=== PATIENT | male | born 1935 | race Caucasian/White ===

== ENCOUNTER 2017-05-25 23:58 | Emergency (ER) | payer MEDICARE, SELFPAY ==
[2017-05-26 00:05] VITALS: BP 189/76; PULSE 111; RESP 18; TEMP 38.2; O2SAT 98; BMI 22.4
--- NOTE | 2017-05-26 00:37 | HMH.EDURI ---
ED Disposition Clinical Impression: Bronchitis Disposition: Home, Self-Care Condition on Discharge: Good Instructions: DI for Cough -- Adult Additional Instructions: use meds and see pcp for follow up Prescriptions: levoFLOXacin [Levaquin 500mg tab] 500 mg PO DAILY #7 tab predniSONE [Prednisone 20mg Tab] 20 mg PO DAILY #10 tab Referrals: Tim Adams MD [Primary Care Provider] - - Critical Care Critical Care Time: No Attestation: On , the high probability of a clinically significant, sudden or life threatening deterioration of the following system(s) required my full and direct attention, intervention and personal management. The time I documented below is in addition to time spent performing reported procedures but includes the following listed in this critical care notation. Medical Decision Making - Medical Records Medical records reviewed: Yes: I reviewed the patient's medical records. Vital Signs: 05/26/17 00:05 Temperature 100.7 F H Temperature Source Oral Pulse Rate [Right Radial] 111 H Respiratory Rate 18 Blood Pressure [Right Arm] 189/76 Blood Pressure Mean [Right Arm] 113 02 Sat by Pulse Oximetry 98 Oxygen Delivery Method Room Air - Lab Data Lab results reviewed: Yes: I reviewed the patient's lab results. Lab Results 05/26/17 00:24: Influenza Type A Ag Negative, Influenza Type B Ag Negative - Vidal Inquiry Pt receiving controlled substance: No URI/Sore Throat HPI - General Chief Complaint: Nausea/Vomiting/Diarrhea Stated Complaint: cough,chest congestion Time Seen by Provider: 05/26/17 00:37 Mode of Arrival: Ambulatory Source of Information: Patient, Medical Record Limitations: No Limitations Description of Symptoms (Recalled from ER Triage Doc. by RN): PT REPORTS COUGH THAT STARTED TODAY WITH CLEAR SPUTUM. - History of Present Illness HPI Narrative: wm with inpatient nursing aide cough with no fever or rash and has not responded to meds Complaint: cough Onset (ago): day(s) Severity: moderate Relieving factors: cough suppressant Description of mucous: clear - Related Data Home Medications Medication Instructions Recorded Confirmed Benzonatate [Benzonatate 200mg Cap] 200 mg PO QID 05/26/17 05/26/17 Doxazosin Mesylate [Doxazosin 1mg 1 mg PO DAILY 05/26/17 05/26/17 Tab] Esomeprazole Magnesium [Nexium] 40 mg PO DAILY 05/26/17 05/26/17 Finasteride [Proscar 5mg Tablet] 5 mg PO DAILY 05/26/17 05/26/17 Fluticasone Propionate [Flonase 1 spray NS DAILY PRN 05/26/17 05/26/17 Allergy Relief NS] Lisinopril [Lisinopril 10mg Tab] 10 mg PO DAILY 05/26/17 05/26/17 raNITIdine HCl [Zantac 75] 75 mg PO DAILY PRN 05/26/17 05/26/17 Previous Rx's Medication Instructions Recorded levoFLOXacin [Levaquin 500mg 500 mg PO DAILY #7 tab 05/26/17 tab] predniSONE [Prednisone 20mg 20 mg PO DAILY #10 tab 05/26/17 Tab] Allergies Allergy/AdvReac Type Severity Reaction Status Date / Time SULFA (SULFONAMIDE) Allergy Unknown Uncoded 05/10/17 14:37 [facility] History I have reviewed the patient's past medical history: Yes Medical History: Denies:: Diabetes Mellitus Type 1, Diabetes Mellitus Type 2 - *Social History Smoking Status: Former smoker Alcohol Intake: never - Psychiatric History Expresses thoughts of harming self/others: None Suicide Plan Description: No Plan ROS Obtained: Yes All systems reviewed & no additional complaints except as noted - Constitutional Denies fever(s) - Eyes Denies change in vision - ENT Denies difficulty swallowing - Cardiovascular Denies chest pain - Respiratory Reports cough - Gastrointestinal Denies vomiting - Musculoskeletal Denies joint swelling - Neurologic Denies seizure-like activity Physical Exam - General General appearance: alert, in no apparent distress - Head Head exam: atraumatic - Eye Eye exam: Present: PERRL, EOMI - ENT ENT exam: Present: mucous membranes moist - Neck
== END 2017-05-26 01:08 | disposition home or self-care (01) ==
PROVIDERS: Emergency Provider Emergency Medicine; PCP Family Medicine
DX: J20.9 Acute bronchitis, unspecified (principal); Z87.891 Personal history of nicotine dependence
CPT/HCPCS: 87275; 87276; 99282

== ENCOUNTER → 2017-07-07 13:31 | Outpatient (CLI) | payer MEDICARE, SELFPAY ==
[2017-07-07 15:29] LABS: Prostate Specific Ag Screen 1.1 ng/mL (0.0-4.0)
== END ==
PROVIDERS: PCP Family Medicine; Visit Provider Urology
DX: Z12.5 Encounter for screening for malignant neoplasm of prostate (principal)
CPT/HCPCS: 36415; G0103

== ENCOUNTER → 2018-07-13 14:51 | Outpatient (CLI) | payer MEDICARE, SELFPAY ==
[2018-07-13 16:15] LABS: Prostate Specific Ag Screen 1.1 ng/mL (0.0-4.0)
== END ==
PROVIDERS: Visit Provider Urology
DX: Z12.5 Encounter for screening for malignant neoplasm of prostate (principal); C61 Malignant neoplasm of prostate
CPT/HCPCS: 36415; G0103

== ENCOUNTER → 2019-04-03 08:21 | Outpatient (CLI) | payer MEDICARE, SELFPAY ==
--- NOTE | 2019-04-03 08:26 | XR_ITS ---
PROCEDURE: XR SHOULDER RT MIN 2V CLINICAL INDICATION: right shoulder pain COMPARISON: XR SHOULDER RT MIN 2V from 02/14/2019 FINDINGS: The no fracture, dislocation, lytic change, or blastic change evident. No significant degenerative change IMPRESSION: Negative right shoulder Dictated by: Giovanny Wood MD 04/03/2019 16:17 Electronically signed by Giovanny Wood MD in [place] 04/03/2019 16:17
== END ==
PROVIDERS: PCP Family Medicine; Visit Provider Orthopaedic Surgery
DX: M25.511 Pain in right shoulder (principal)
CPT/HCPCS: 73030

== ENCOUNTER → 2019-04-11 09:09 | Outpatient (CLI) | payer MEDICARE, SELFPAY ==
--- NOTE | 2019-04-11 09:14 | MR_ITS ---
PROCEDURE: MR SHOULDER RT WO CON CLINICAL INDICATION: evaluate for rotator cuff tear Right shoulder pain with limited range of motion COMPARISON: XR SHOULDER RT MIN 2V from 04/03/2019 TECHNIQUE: Routine multiplanar multi echo sequences are performed without gadolinium enhancement. FINDINGS: There is complete tear of the supraspinatus tendon with retraction of the musculotendinous fibers. The infraspinatus, subscapularis, and teres minor tendons appear intact. There is a moderate size shoulder joint effusion. Fluid is present in the subacromial region and deep to the teres minor tendon posteriorly. No obvious labral tear. Bicipital tendon is in place. There is mild acromioclavicular arthropathy with mild subacromial stenosis. There is some minimal subarticular cystic changes at the humeral head at the greater tuberosity. IMPRESSION: Complete tear of the supraspinatus tendon with retraction of the musculotendinous fibers with moderate size shoulder joint effusion and subacromial bursitis along with hypertrophic change of the acromioclavicular joint with subacromial stenosis Dictated by: Giovanny Wood MD 04/12/2019 12:01 Electronically signed by Giovanny Wood MD in [place] 04/12/2019 12:01
== END ==
PROVIDERS: PCP Family Medicine; Visit Provider Orthopaedic Surgery
DX: G89.29 Other chronic pain (principal); M25.511 Pain in right shoulder
CPT/HCPCS: 73221

== ENCOUNTER → 2019-07-18 10:41 | Outpatient (CLI) | payer MEDICARE, SELFPAY ==
[2019-07-18 12:13] LABS: Prostate Specific Ag Screen 1.1 ng/ml (0.0-4.0)
== END ==
PROVIDERS: Visit Provider Urology
DX: Z12.5 Encounter for screening for malignant neoplasm of prostate (principal)
CPT/HCPCS: 36415; G0103

== ENCOUNTER → 2020-07-21 09:41 | Outpatient (CLI) | payer MEDICARE, SELFPAY ==
[2020-07-21 11:53] LABS: Prostate Specific Ag Screen 0.8 ng/ml (0.0-4.0)
== END ==
PROVIDERS: Visit Provider Urology
DX: N40.1 Benign prostatic hyperplasia with lower urinary tract symptoms (principal); Z12.5 Encounter for screening for malignant neoplasm of prostate
CPT/HCPCS: 36415; G0103

== ENCOUNTER 2021-03-02 21:13 | Emergency (ER) | payer MEDICARE, SELFPAY ==
[2021-03-02 21:15] VITALS: BP 200/85; PULSE 87; RESP 16; TEMP 36.5; O2SAT 96; BMI 30.2
[2021-03-02 21:20] VITALS: BP 206/75; PULSE 81
--- NOTE | 2021-03-02 21:37 | ECG_ITS ---
APPROVED REPORT Exam: Resting ECG HR:76 bpm ECG Measurements Heart Rate 76 AXES NC 210 P 54 QRSd 88 QRS -10 QT 350 T 34 QTc 393 Conclusion Sinus rhythm with 1st degree AV block Low voltage QRS Borderline ECG Electronically signed by : Tim Gregorio MD 03/04/2021 21:25:25
--- NOTE | 2021-03-02 21:42 | HMH.EDRECH ---
ED Disposition Clinical Impression: Hypertensive urgency Disposition: Home, Self-Care Condition on Discharge: Good Instructions: DI for High Blood Pressure Additional Instructions: call pcp for follow up tomorrow Referrals: Tim Adams MD [Primary Care Provider] - - Critical Care Critical Care Time: No Attestation: On 03/02/21, the high probability of a clinically significant, sudden or life threatening deterioration of the following system(s) required my full and direct attention, intervention and personal management. The time I documented below is in addition to time spent performing reported procedures but includes the following listed in this critical care notation. Medical Decision Making - Medical Records Medical records reviewed: Yes: I reviewed the patient's medical records. - Vidal Inquiry Pt receiving controlled substance: No Vital Signs: 03/02/21 21:15 03/02/21 21:20 Temperature 97.7 F Temperature Source Oral Pulse Rate 81 Pulse Rate [Right Radial] 87 Respiratory Rate 16 Blood Pressure 206/75 H Blood Pressure [Right Arm] 200/85 H Blood Pressure Mean [Right Arm] 123 Blood Pressure Source Manual Cuff/ Auscultation Blood Pressure Source [Right Arm] Automatic Cuff Blood Pressure Position Sitting Blood Pressure Position [Right Arm] Sitting 02 Sat by Pulse Oximetry 96 Oxygen Delivery Method Room Air - Lab Data Lab results reviewed: Yes: I reviewed the patient's lab results. Lab Results 03/02/21 22:04: WBC 6.0, RBC 3.65 L, Hgb 12.5 L, Hct 37.3 L, MCV 102.3 H, MCH 34.3 H, MCHC 33.5, RDW 13.5, Plt Count 201, MPV 8.4, Neut % (Auto) 50.3, Lymph % (Auto) 37.5, [place] % (Auto) 7.5, Eos % (Auto) 3.7, Baso % (Auto) 1.0, Neut # (Auto) 3.0, Lymph # (Auto) 2.2, [place] # (Auto) 0.5, Eos # (Auto) 0.2, Baso # (Auto) 0.1 03/02/21 22:04: Sodium 138, Potassium 3.9, Chloride 102, Carbon Dioxide 28, Anion Gap 11.9, BUN 13, Creatinine 1.00, Estimated Creat Clear 57, Estimated GFR 71, Est GFR ( Amer) 86, Glucose 128 H, Calcium 9.2, Troponin I < 0.01 Result diagrams: 03/02/21 22:04 03/02/21 22:04 Orders (Tests/Meds): ED MEDICATIONS Discontinued Medications Generic Name Dose Route Start Last Admin Trade Name Rober PRN Reason Stop Dose Admin Clonidine HCl 0.1 mg 03/02/21 21:48 03/02/21 21:49 Clonidine 0.1mg Tablet PO 03/02/21 21:49 0.1 mg ONCE ONE Administration ORDERS Category Date Time Status Chest XR 2 view (NOT portable) [XR chest 2V] Stat Exams 03/02/21 21:49 Taken Troponin I Q3H Lab 03/03/21 01:00 Ordered Troponin I Q3H Lab 03/03/21 04:00 Ordered - Radiology Data #1 Image(s): Chest Image Reviewed: Yes I have reviewed radiologist's interpretation Preliminary Findings: Normal/NAD - ECG Data Tracing #1 Normal Sinus Rhythm: Yes Ischemic changes: non-specific ST-T wave changes Medical Decision Narrative: please call pcp in am for close follow up Recheck HPI - General Chief Complaint: Recheck/Abnormal Lab/Rx Stated Complaint: High blood pressure pain in throat , Time Seen by Provider: 03/02/21 21:42 Mode of Arrival: Ambulatory Source of Information: Patient, Medical Record Limitations: No Limitations Description of Symptoms (Recalled from ER Triage Doc. by RN): Pt reports high BP reading at home anywhere from 170 to 200 systolic this evening. Pt had a tooth extraction last week and thinks the lidocaine used may be causing his BP to be elevated. Pt took a lisinopril 10mg an our before arrival. Pt states he feels normal and denies chest pain or soa. - History of Present Illness HPI narrative: elevated bp at home - no mak or focal neuro sx - and no fever/rash or trauma MD complaint: other (bp check ) Initial visit (ago): hour(s) Returns today for: other (bp elevated ) Symptoms since prior visit: no new symptoms Associated symptoms: none - Related Data Home Medications Medication Instructions Recorded Confirmed Do
--- NOTE | 2021-03-02 21:49 | XR_ITS ---
PROCEDURE INFORMATION: Exam: XR Chest Exam date and time: 03/02/2021 9:49 PM Age: 86 years old Clinical indication: Other: Elevated BP TECHNIQUE: Imaging protocol: XR of the chest. Views: 2 views. COMPARISON: MR SHOULDER RT WO CON 04/11/2019 9:58 AM FINDINGS: Lungs: Senescent changes within both lung lee. No consolidation. Pleural spaces: Unremarkable. No pleural effusion. No pneumothorax. Heart/Mediastinum: Unremarkable. No cardiomegaly. Bones/joints: Unremarkable. IMPRESSION: No acute findings.
[2021-03-02 22:00] VITALS: BP 185/70; PULSE 80; RESP 16; O2SAT 97
[2021-03-02 22:17] LABS: Basophils # 0.1 K/mm3 (0-0.2); Eosinophils # 0.2 K/mm3 (0.0-0.4); Eosinophils % 3.7 % (0.1-12.0); Hematocrit 37.3 % (42.0-52.0); Hemoglobin 12.5 g/dL (14.1-18.0); Lymphocytes # 2.2 K/mm3 (0.7-4.5); Lymphocytes % 37.5 % (10-50); Mean Corpuscular HGB Conc 33.5 g/dL (31.8-35.4); Mean Corpuscular Hemoglobin 34.3 pg (27.0-31.2); Mean Corpuscular Volume 102.3 fl (80-94); Mean Platelet Volume 8.4 fl (7.4-10.4); Monocytes # 0.5 K/mm3 (0.1-1.0); Monocytes % 7.5 % (1.7-9.3); Neutrophils % 50.3 % (37.0-80.0); Platelet Count 201 K/mm3 (142-424); Red Blood Count 3.65 M/mm3 (4.60-6.20); Red Cell Distribution Width 13.5 % (11.5-17.5)
[2021-03-02 22:21] LABS: Anion Gap 11.9 mEq/L (5-15); Blood Urea Nitrogen 13 mg/dl (9-20); Calcium 9.2 mg/dl (8.4-10.2); Carbon Dioxide 28 mmol/L (22.0-30.0); Chloride 102 mmol/L (98-107); Creatinine Clearance Estimated 57 mL/min (50-200); Estimated Glomerular Filt Rate 71 ml/min (>60); GFR (African American) 86 ML/MIN (>60); Glucose 128 mg/dl (74-100); Potassium 3.9 mmoL/L (3.5-5.1); Sodium 138 mmol/L (136-145)
[2021-03-02 22:30] VITALS: BP 198/71; PULSE 70; O2SAT 97
[2021-03-02 22:35] LABS: Troponin I < 0.01 ng/ml (0.00-0.034)
[2021-03-02 23:10] VITALS: BP 198/78; PULSE 77
[2021-03-02 23:26] VITALS: BP 192/73; PULSE 78; RESP 16; TEMP 36.6; O2SAT 97
== END 2021-03-02 23:42 | disposition home or self-care (01) ==
PROVIDERS: Emergency Provider Emergency Medicine; PCP Family Medicine
DX: I16.0 Hypertensive urgency (principal); Z88.2 Allergy status to sulfonamides
CPT/HCPCS: 71046; 80048; 84484; 85025; 93005; 99283

== ENCOUNTER → 2021-07-28 08:16 | Outpatient (CLI) | payer MEDICARE, SELFPAY ==
[2021-07-28 08:36] LABS: Microscopic, Urine URINE MICROSCOPIC (MICROSCOPIC)
--- NOTE | 2021-07-28 09:00 | ECG_ITS ---
APPROVED REPORT Exam: Resting ECG HR:69 bpm ECG Measurements Heart Rate 69 AXES UT 201 P 79 QRSd 100 QRS -56 QT 356 T 63 QTc 374 Conclusion SINUS RHYTHM INDETERMINATE AXIS ABNORMAL ECG UNCONFIRMED REPORT Electronically signed by : Tim Gregorio MD 07/29/2021 17:51:12
[2021-07-28 09:03] LABS: Basophils # 0.1 K/mm3 (0-0.2); Basophils % 1.1 % (0.1-2.0); Eosinophils # 0.2 K/mm3 (0.0-0.4); Eosinophils % 3.3 % (0.1-12.0); Hematocrit 41.2 % (42.0-52.0); Hemoglobin 13.3 g/dL (14.1-18.0); Lymphocytes # 2.2 K/mm3 (0.7-4.5); Lymphocytes % 43.3 % (10-50); Mean Corpuscular HGB Conc 32.2 g/dL (31.8-35.4); Mean Corpuscular Hemoglobin 34.4 pg (27.0-31.2); Mean Corpuscular Volume 106.7 fl (80-94); Mean Platelet Volume 8.7 fl (7.4-10.4); Monocytes # 0.4 K/mm3 (0.1-1.0); Monocytes % 7.1 % (1.7-9.3); Neutrophils # 2.3 K/mm3 (1.8-7.8); Neutrophils % 45.2 % (37.0-80.0); Platelet Count 194 K/mm3 (142-424); Red Blood Count 3.86 M/mm3 (4.60-6.20); Red Cell Distribution Width 13.5 % (11.5-17.5); White Blood Count 5.2 K/mm3 (4.8-10.8)
[2021-07-28 09:21] LABS: Anion Gap 10.9 mEq/L (5-15); Blood Urea Nitrogen 13 mg/dl (9-20); Calcium 9.4 mg/dl (8.4-10.2); Carbon Dioxide 28 mmol/L (22.0-30.0); Chloride 103 mmol/L (98-107); Estimated Glomerular Filt Rate 58 ml/min (>60); GFR (African American) 70 ML/MIN (>60); Glucose 104 mg/dl (74-100); Potassium 4.9 mmoL/L (3.5-5.1); Sodium 137 mmol/L (136-145)
[2021-07-28 09:50] LABS: Prostate Specific Ag Screen 0.9 ng/ml (0.0-4.0)
[2021-07-28 10:51] LABS: Appearance,Urine CLEAR (Clear); Bilirubin,Urine Negative (Negative); Blood, Urine Negative (Negative); Color,Urine YELLOW (Yellow); Glucose,Urine (UA) Negative (Negative); Ketones,Urine Negative (Negative); Leukocyte Esterase,Urine Negative (Negative); Nitrate,Urine Negative (Negative); Protein,Urine Negative (Negative); Urobilinogen,Urine 0.2 EU/dl (0.2)
[2021-07-28 11:26] LABS: Squamous Epithelial Cell,Urine Occasional #/hpf (0-5)
== END ==
PROVIDERS: Surgery; PCP Family Medicine; Referring Provider Urology; Visit Provider Surgery
DX: K40.90 Unilateral inguinal hernia, without obstruction or gangrene, not specified as recurrent (principal); J40 Bronchitis, not specified as acute or chronic; Z01.812 Encounter for preprocedural laboratory examination; Z11.52 Encounter for screening for COVID-19; Z12.5 Encounter for screening for malignant neoplasm of prostate
CPT/HCPCS: 36415; 80048; 81001; 85025; 93005; G0103; C9803; U0003; U0005

== ENCOUNTER 2021-07-30 08:13 | Day surgery (SDC) | payer MEDICARE, SELFPAY ==
[2021-07-28 10:05] VITALS: BMI 21.2
[2021-07-30] VITALS (10 sets, daily range): BP systolic 147–195; BP diastolic 51–83; PULSE 62–94; RESP 12–18; TEMP 36.4–43; O2SAT 95–99
--- NOTE | 2021-07-30 09:32 | HMH.ANESCL ---
[facility] Anesthesia Checklist - Patient Identification Patient Identification: Arm Band - Structural Data Admitted From: Home Planned Operative Procedure/s: Right Open Inguinal Hernia Repair Consent for Planned Operative Procedure(s) Verified: Yes Verified Documents: Surgical Consent, History and Physical - NPO Status Verified Time NPO: 00:00 - Additional verifications Anesthesia Reactions: No Hx Blood Transfusions: No Blood Transfusion Reaction: No - Airway Assessment C-Spine Mobility Assessed: Yes (mp2) TMJ Mobility Assessed: Yes Dentition: Good Dentition - Neurological Assessment Level of Consciousness: Awake, Alert - Anesthesia Plan Anesthesia Risk discussed: Yes Anesthesia Plan: Verified ASA Class: III Anesthesia Type: General [facility] History I have reviewed the patient's past medical history: Yes Medical History: Reports:: Cancer (skin), Gastroesophageal Reflux Disease(GERD), Hypertension Denies:: Diabetes Mellitus Type 1, Diabetes Mellitus Type 2, Internal Pacemaker, MRSA, Seizures *Have you ever received a pneumonia vaccine?: Yes *Have you received a flu vaccine this season?: Yes Other Medical History: Denies: Blood Transfusion Reaction Anesthesia experience/problems:: nac Laterality Cases: Bilateral: Cataract Other Surgeries: Yes: Colonoscopy, Other. No: Pacemaker Amputation: No Fractures: No - *Social History Last grade of school completed: Advanced degree Smoking Status: Never smoker Alcohol Intake: never Substance Use Type: denies use *Occupational Status:: retired Housing: house Household Members: none *Travel in the last 8 weeks: None Family Hx:: No significant family history
--- NOTE | 2021-07-30 11:55 | HMH.OPNOTE ---
Date of procedure: 07/30/21 Pre-op Diagnosis:: Right inguinal hernia Post-op Diagnosis:: Same Procedure performed:: Open right inguinal hernia repair Surgeon:: Dillan Middleton MD Payroll Professional(s):: Chrissie POULTRY CLEANER:: French Duarte Anesthesia: LMA Estimated blood loss (mL): 15 Operative findings:: Complex indirect hernia with thin hernia sac Significant inflammatory changes throughout inguinal canal Operative note:: After informed consent was obtained the patient was taken to the operating room and placed in the supine position. General anesthesia with laryngeal mask airway was achieved. His right lower abdomen and groin/scrotum were prepped and draped in a sterile fashion. After infiltration with local anesthetic an oblique right groin incision was made. Electrocautery was utilized to transect through the deeper subcutaneous tissue and through Hayde's fascia to the level of the external aponeurosis. The external aponeurosis was opened to the level of the external ring sharply with Metzenbaum scissors. The contents of the canal were carefully elevated. Significant inflammatory response throughout the inguinal canal region confirmed. A very thin-walled hernia sac was carefully dissected free from surrounding tissue. A portion of the sac was transected and passed off for pathologic evaluation. The opening was reapproximated with nondyed Vicryl suture. An extra-large PerFix plug was then secured in position through the internal ring with 2-0 Ethibond. The PerFix overlay mesh was then secured to the shelving edge inferiorly and fascial margin superiorly with 2-0 Ethibond. The external aponeurosis was reapproximated with running Vicryl suture. Hayde's fascia was closed in the same manner. Skin was then reapproximated with 3-0 Stratafix. Dressings were applied and the patient was transferred to recovery in stable condition. Condition: stable Disposition: PACU Specimens:: Hernia sac Complications:: No immediate
--- NOTE | 2021-07-30 11:59 | HMH.ANESI ---
[facility] Anesthesia Record Part I Intake, IV Amount: 1,400 Estimated blood loss (mL): 0 Urine output (mL): 700 Blood Pressure: 155/62 SaO2: 96 Pulse Rate: 77 Respiratory Rate: 12 Temperature: 97.5 F Patient is:: Awake, Stable Stable to PACU at:: 11:55
--- NOTE | 2021-07-30 12:36 | SUR.PHASEI ---
1222 detailed report given to Geovany Moses RN. 1225 Pt transported via stretcher to post op. Pt in stable condition and left in care of Geovany Moses RN at bedside.
--- NOTE | 2021-07-30 13:02 | SUR.PHASEII ---
BS care given by Anthony RN- educated by Orlando COLON
[2021-07-30 14:42] LABS: Microscopic,Cath URINE MICROSCOPIC (MICROSCOPIC)
[2021-07-30 14:49] LABS: Appearance,Urine/Cath CLEAR (Clear); Bilirubin,Cath Negative (Negative); Blood, Urine/Cath Negative (Negative); Color,Urine/Cath YELLOW (Yellow); Glucose,Urine/Cath (UA) Negative (Negative); Ketones,Urine/Cath Negative (Negative); Leukocyte Esterase,Cath Negative (Negative); Nitrate,Cath Negative (Negative); Protein,Urine/Cath Negative (Negative); Urobilinogen,Cath 0.2 EU/dl (0.2)
--- NOTE | 2021-07-31 09:51 | HMH.ANESII ---
[facility] [place] Anesthesia Record Part II Discharge Time: 12:25 Destination: Surgical Day Care (OP Surgery) PACU nurse assessment reviewed?: Yes Patient Condition:: Good Anesthesia Complications:: None Swallowing reflex intact?: Yes Cyanosis?: No Blood Pressure: 151/51 Pulse Rate: 64 Temperature: 97.6 F Mental Status: Alert & Oriented Pain level:: 0 Nausea and/or vomitting:: None Intake, IV Amount: 0
[2021-07-31 09:52] VITALS: BP 151/51; PULSE 64; TEMP 36.4
== END 2021-07-30 13:02 | disposition home or self-care (01) ==
LOC: OR 08:15
PROVIDERS: PCP Family Medicine; Visit Provider Surgery
DX: K40.90 Unilateral inguinal hernia, without obstruction or gangrene, not specified as recurrent (principal); R31.0 Gross hematuria; K21.9 Gastro-esophageal reflux disease without esophagitis; I10 Essential (primary) hypertension; Z85.828 Personal history of other malignant neoplasm of skin; Z88.2 Allergy status to sulfonamides; Z79.899 Other long term (current) drug therapy
CPT/HCPCS: 49505; 81001; 85007; 85025; 96374; 99283; J2405

== ENCOUNTER 2021-07-30 20:06 | Emergency (ER) | payer MEDICARE, SELFPAY ==
[2021-07-30 20:07] VITALS: BP 174/79; PULSE 113; RESP 19; TEMP 37; O2SAT 98; BMI 21.2
[2021-07-30 20:44] LABS: Basophils % 0.3 % (0.1-2.0); Eosinophils % 0.1 % (0.1-12.0); Hematocrit 39.8 % (42.0-52.0); Hemoglobin 12.8 g/dL (14.1-18.0); Lymphocytes # 0.7 K/mm3 (0.7-4.5); Lymphocytes % 8.2 % (10-50); Mean Corpuscular HGB Conc 32.2 g/dL (31.8-35.4); Mean Corpuscular Hemoglobin 34.2 pg (27.0-31.2); Mean Platelet Volume 9.1 fl (7.4-10.4); Monocytes # 0.3 K/mm3 (0.1-1.0); Neutrophils # 7.4 K/mm3 (1.8-7.8); Neutrophils % 87.4 % (37.0-80.0); Platelet Count 193 K/mm3 (142-424); Red Blood Count 3.75 M/mm3 (4.60-6.20); Red Cell Distribution Width 13.5 % (11.5-17.5); White Blood Count 8.5 K/mm3 (4.8-10.8)
[2021-07-30 20:51] LABS: MANUAL DIFFERENTIAL MANUAL DIFFERENTIAL (MANUAL DIFF)
--- NOTE | 2021-07-30 20:57 | HMH.EDGENADL ---
ED Disposition Clinical Impression: Hematuria Qualifiers: Hematuria type: gross Qualified Code(s): R31.0 - Gross hematuria BPH (benign prostatic hyperplasia) Qualifiers: Lower urinary tract symptom presence: unspecified whether lower urinary tract symptoms present Qualified Code(s): N40.0 - Benign prostatic hyperplasia without lower urinary tract symptoms Disposition: Home, Self-Care Condition on Discharge: Good Instructions: DI for Urinary Tract Infection (UTI), DI for Urinary Tract Infection in Children Additional Instructions: Keep Maier catheter in place until following up with Dr. Valdes this upcoming Tuesday. Return to ED with new, worsening, concerning symptoms which may include but not limited to inability to urinate, worsening hematuria or blood clots, fevers, worsening pain. Take Pyridium as directed, continue to have medications as previously directed. Prescriptions: Phenazopyridine HCl [Pyridium 200mg Tablet] 200 mg PO TID 3 Days #9 tab Transmission Status: Pending to [facility] Referrals: Tim Adams MD [Primary Care Provider] - - Critical Care Critical Care Time: No Attestation: On 07/30/21, the high probability of a clinically significant, sudden or life threatening deterioration of the following system(s) required my full and direct attention, intervention and personal management. The time I documented below is in addition to time spent performing reported procedures but includes the following listed in this critical care notation. Medical Decision Making - Medical Records Medical records reviewed: Yes: I reviewed the patient's medical records. - Vidal Inquiry Pt receiving controlled substance: No Vital Signs: 07/30/21 20:07 Temperature 98.6 F Temperature Source Oral Pulse Rate [Right] 113 H Respiratory Rate 19 Blood Pressure [Right Arm] 174/79 H Blood Pressure Mean [Right Arm] 110 Blood Pressure Source [Right Arm] Automatic Cuff 02 Sat by Pulse Oximetry 98 Oxygen Delivery Method Room Air - Lab Data Lab Results 07/30/21 20:24: WBC 8.5 D, RBC 3.75 L, Hgb 12.8 L, Hct 39.8 L, MCV 106.0 H, MCH 34.2 H, MCHC 32.2, RDW 13.5, Plt Count 193, MPV 9.1, Neut % (Auto) 87.4 H, Lymph % (Auto) 8.2 L, [place] % (Auto) 4.0, Eos % (Auto) 0.1, Baso % (Auto) 0.3, Neut # (Auto) 7.4, Lymph # (Auto) 0.7, [place] # (Auto) 0.3, Eos # (Auto) 0.0, Baso # (Auto) 0.0 Result diagrams: 07/30/21 20:24 Orders (Tests/Meds): ED MEDICATIONS Discontinued Medications Generic Name Dose Route Start Last Admin Trade Name Rober PRN Reason Stop Dose Admin Phenazopyridine HCl 200 mg 07/30/21 20:36 07/30/21 21:09 Phenazopyridine 200mg Tablet PO 07/30/21 20:37 200 mg ONCE ONE Administration ORDERS Category Date Time Status CBC [Complete Blood Count Auto Diff] Stat Lab 07/30/21 20:24 Results Medical Decision Narrative: 6-year-old male with history of BPH, recent inguinal hernia repair who is presenting to the ED with hematuria with a Maier catheter in place. Differential diagnoses include traumatic Maier catheter placement, BPH, hemorrhagic cystitis, Maier catheter dislodgment, bladder cancer. Given this work-up will include physical exam, CBC, bladder scan. Patient's vital signs are currently stable. He was given Pyridium for discomfort. CBC reassuring with hemoglobin of 12.8, 13.32 days ago. No history of blood thinner use. Suspect this is most likely secondary to traumatic Maier catheter placement however patient does have pre-existing BPH which puts him at risk for hematuria. I do not feel that further labs or imaging studies are currently indicated. If he remains stable he will be safer discharge home. Bedside ultrasound shows Maier bulb catheter within the bladder, no other abnormalities. Patient main stable, urine color has cleared, less blood-tinged. No obvious clots. This point I feel he is okay for discharge, write a 3 days of oral Pyridium for dysuria symptoms. He will
--- NOTE | 2021-07-30 21:12 | PC.NURSE ---
pt refuses to wear BP cuff at sat monitor at this time.
--- NOTE | 2021-07-30 21:22 | PC.NURSE ---
patient given ice pack
[2021-07-30 21:40] VITALS: BP 142/78; PULSE 84; RESP 18; TEMP 36.9; O2SAT 98
[2021-07-30 21:43] LABS: Lymphocytes % 10 % (10-50); Monocytes % 2 % (2-9); Neutrophils % 88 % (42-76); Total Cells Counted 100
[2021-07-30 21:44] LABS: Macrocytosis 1+; Platelet Estimate 1
== END 2021-07-30 22:24 | disposition home or self-care (01) ==
PROVIDERS: Emergency Provider Emergency Medicine; PCP Family Medicine
DX: R31.0 Gross hematuria (principal); N39.0 Urinary tract infection, site not specified; N40.0 Benign prostatic hyperplasia without lower urinary tract symptoms; K21.9 Gastro-esophageal reflux disease without esophagitis; I10 Essential (primary) hypertension; C44.90 Unspecified malignant neoplasm of skin, unspecified; Z79.51 Long term (current) use of inhaled steroids; Z79.899 Other long term (current) drug therapy; Z88.2 Allergy status to sulfonamides
CPT/HCPCS: 85007; 85025

== ENCOUNTER 2023-12-03 13:07 | Inpatient (IN) | payer MEDICARE, SELFPAY ==
[2023-12-03] VITALS (7 sets, daily range): BP systolic 134–193; BP diastolic 52–78; PULSE 62–108; RESP 16–18; TEMP 36.6–36.9; O2SAT 94–98; BMI 21.2
--- NOTE | 2023-12-03 13:36 | EXP.UTC ---
Discharge Plan Disposition Patient Disposition: Still a Patient Prescriptions Prescriptions: No Action doxazosin 1 MG tablet 1 mg PO DAILY esomeprazole magnesium 40 MG capsule,delayed release(DR/EC) 40 mg PO DAILY lisinopril 10 MG tablet 10 mg PO DAILY finasteride 5 MG tablet 5 mg PO DAILY famotidine 20 MG tablet 20 mg PO HS Referrals Follow up/Referrals: Singh Liz MD [Primary Care Provider] - See instructions Discharge ED Provider: Del ([facility] [place] General Stated complaint: abd pain Mode of Arrival: Ambulatory Source of Information: Patient Limitations: No Limitations Time Seen by Provider: 12/03/23 13:36 Description of Symptoms (Recalled from Triage Doc. by RN): PATIENT C/O SEVERE MIDDLE ABDOMINAL PAIN THAT RADIATES UPWARD AND STARTED THIS MORNING. PATIENT DENIES VOMITING, NAUSEA, OR DIARRHEA HEENT Symptoms (Recalled from RN notes): No Resp Symptoms (Recalled from RN notes): No Skin Symptoms (Recalled from RN notes): No MS Symptoms (Recalled from RN notes): No Functional Status (Recalled from RN notes): WNL History of Present Illness Provider Complaint: 88 yr old male presents for abd pain. pt states the pain is severe. pt states he had a episode in the past and was told it was blockage and he had surgery but nothing was found. pt states the last time he received morphine and his stomach was pumped and that helped. Related Data Home Medications Medication Instructions Recorded Confirmed doxazosin 1 mg tablet 1 mg PO DAILY PROSTATE 05/26/17 12/03/23 esomeprazole magnesium 40 mg 40 mg PO DAILY GERD 05/26/17 12/03/23 capsule,delayed release finasteride 5 mg tablet 5 mg PO DAILY PROSTATE 05/26/17 12/03/23 lisinopril 10 mg tablet 10 mg PO DAILY Hypertension 05/26/17 12/03/23 famotidine 20 mg tablet 20 mg PO HS GERD 07/28/21 12/03/23 Allergies Allergy/AdvReac Type Severity Reaction Status Date / Time Sulfa (Sulfonamide Allergy Verified 09/02/21 12:45 Antibiotics) Worker's Comp Is this a Worker's Comp case?: No [facility] Disclaimer: The information contained in this section may have been updated after the patient was seen, as this information can be updated by other users. Medical History , BUSINESS MANAGEMENT SPECIALIST) Cancer Prostate disorder Hypertension Surgical History , BUSINESS MANAGEMENT SPECIALIST) History of tonsillectomy Social History , BUSINESS MANAGEMENT SPECIALIST) Smoking Status: Never smoker alcohol intake: never substance use type: denies use current occupational status: retired Travel in the last 8 weeks: None household members: none housing: house current occupational exposures/hazards: No caffeine: Yes ROS Obtained: Yes All systems reviewed & no additional complaints except as documented Constitutional Constitutional: Reports system reviewed and no additional complaints, except as documented Eyes Eyes: Reports system reviewed and no additional complaints, except as documented ENT Ears, Nose, Mouth, and Throat: Reports system reviewed and no additional complaints, except as documented Cardiovascular Cardiovascular: Reports system reviewed and no additional complaints, except as documented Respiratory Respiratory: Reports system reviewed and no additional complaints, except as documented Gastrointestinal Gastrointestingal: Reports system reviewed and no additional complaints, except as documented, as per HPI and abdominal pain Musculoskeletal Musculoskeletal: Reports system reviewed and no additional complaints, except as documented Integumentary/Breasts Skin/Breast: Reports system reviewed and no additional complaints, except as documented Neurologic Neurologic: Reports system reviewed and no additional complaints, except as documented Endocrine Endocrine: Reports system reviewed and no additional complaints, except as documented Hematologic/Lymphatic Henatologic/Lymphatic: Reports system reviewed and no additional complaints, except as documented Allergic/Immunologic Allergic/Immunologic: Reports system reviewed and no additional complaints, except as documented Physical Exam General General appearance: alert and in no apparent distress Eye Eye exam: Present normal appearance ENT ENT exam: Present normal exam, normal oropharynx and mucous membranes moist Respiratory Respiratory exam: Present normal lung sounds bilaterally Cardiovascular Cardiovascular exam: Present regular rate and normal rhythm Abdominal Exam Abdominal exam: Present soft, tenderness, guarding and diminished bowel sounds Abdominal tenderness: Present severe (umbilicus) Neurological Exam Neurological exam: Present alert and oriented X3 Skin Skin exam: Present warm and intact Medical Decision Making Medical Records Medical records reviewed: Yes I reviewed the patient's medical records. Vidal Inquiry Pt receiving controlled substance: No Vidal was queried for this patient: No Vital Signs: 12/03/23 13:20 Temperature 98.5 F Temperature Source Oral Pulse Rate [Right Brachial] 74 Respiratory Rate 18 Blood Pressure [Right Arm] 186/71 H Blood Pressure Mean [Right Arm] 109 Blood Pressure Source [Right Arm] Automatic Cuff Blood Pressure Position [Right Arm] Sitting 02 Sat by Pulse Oximetry 98 Oxygen Delivery Method Room Air Physician Consults Physician Consulted: dr ortega Time: 13:46 Reason -: Pt condition Comment/Response: sent to ed for eval
--- NOTE | 2023-12-03 14:04 | PC.NURSE ---
PATIENT SENT TO ER PER Mario MARI APRN FOR FURTHER EVALUATION. REPORT GIVEN TO DR. KWONG AND Leonard JONES RN BY Mario MARI APRN. PATIENT REFUSED WHEELCHAIR TRANSPORT. PATIENT AMBULATED TO ER WITH [facility] STAFF
[2023-12-03] MEDS: LACTATED RINGERS 1000ML 1,000 ML 999 ML IV (15:00)
--- NOTE | 2023-12-03 15:09 | CT_ITS ---
PROCEDURE INFORMATION: Exam: CT Abdomen And Pelvis Without Contrast Exam date and time: 12/03/2023 4:20 PM Age: 88 years old Clinical indication: Abdominal pain; Additional info: Generalized pain, nausea TECHNIQUE: Imaging protocol: Computed tomography of the abdomen and pelvis without contrast. Radiation optimization: All CT scans at this facility use at least one of these dose optimization techniques: automated exposure control; mA and/or kV adjustment per patient size (includes targeted exams where dose is matched to clinical indication); or iterative reconstruction. COMPARISON: CR XR CHEST 2V 03/02/2021 10:10 PM FINDINGS: Heart: There is calcification of the aortic valve annulus. There is calcification of the mitral valve annulus. Coronary arteries: Coronary artery calcifications may indicate coronary artery disease. Liver: Normal. No mass. Gallbladder and biliary ducts: Multiple gallstones in the gallbladder. Pancreas: Normal. No ductal dilation. Spleen: Normal. No splenomegaly. Adrenal glands: Normal. No mass. Kidneys and ureters: Nonobstructing renal calculi bilaterally. No ureteral calculus. Stomach and bowel: Multiple loops of mildly dilated small bowel with air-fluid levels. The distal small bowel is decompressed. This may represent obstruction or ileus. Appendix: No evidence of appendicitis. Intraperitoneal space: Unremarkable. No free air. No significant fluid collection. Vasculature: Unremarkable. No abdominal aortic aneurysm. Lymph nodes: Unremarkable. No enlarged lymph nodes. Urinary bladder: Bladder is distended 12 cm Reproductive: Unremarkable as visualized. Bones/joints: Unremarkable. No acute fracture. Soft tissues: Unremarkable. IMPRESSION: 1. Multiple loops of mildly dilated small bowel with air-fluid levels. The distal small bowel is decompressed. This may represent obstruction or ileus. 2. Multiple gallstones in the gallbladder. 3. Nonobstructing renal calculi bilaterally. No ureteral calculus.
--- NOTE | 2023-12-03 15:16 | PC.NURSE ---
pt ambulatory to restroom without complication
[2023-12-03] MEDS: ACETAMINOPHEN 1,000MG/100ML VIAL 1000 MG IV (15:17)
[2023-12-03] MEDS: KETOROLAC 30MG/ML VIAL 15 MG IV (15:17)
[2023-12-03] MEDS: ONDANSETRON 4MG/2ML VIAL 4 MG IV (15:17)
[2023-12-03 15:20] LABS: Basophils % 0.4 % (0.1-2.0); Eosinophils % 0.4 % (0.1-12.0); Hematocrit 43.5 % (42.0-52.0); Hemoglobin 13.8 g/dL (14.1-18.0); Lymphocytes # 1.4 K/mm3 (0.7-4.5); Mean Corpuscular HGB Conc 31.8 g/dL (31.8-35.4); Mean Corpuscular Hemoglobin 34.5 pg (27.0-31.2); Mean Corpuscular Volume 108.7 fl (80-94); Monocytes # 0.3 K/mm3 (0.1-1.0); Monocytes % 4.8 % (1.7-9.3); Neutrophils # 5.2 K/mm3 (1.8-7.8); Neutrophils % 74.3 % (37.0-80.0); Platelet Count 143 K/mm3 (142-424); Red Cell Distribution Width 13.4 % (11.5-17.5)
[2023-12-03 15:22] LABS: Chloride 107 mmol/L (98-107); Potassium 5.4 mmoL/L (3.5-5.1); Sodium 136 mmol/L (136-145)
[2023-12-03 15:24] LABS: Microscopic, Urine URINE MICROSCOPIC (MICROSCOPIC)
[2023-12-03 15:24] LABS: Alanine Aminotransferase 20 U/L (12-78); Aspartate Amino Transferase 47 U/L (17-59); Blood Urea Nitrogen 21 mg/dl (9-20); Creatinine Clearance Estimated 39 mL/min (50-200); Estimated Glomerular Filt Rate 48 ml/min (>60); GFR (African American) 58 ML/MIN (>60)
[2023-12-03 15:25] LABS: Albumin Level 4.7 g/dl (3.5-5.0); Albumin/Globulin Ratio 1.3 (1.1-1.8); Alkaline Phosphatase 66 U/L (38-126); Anion Gap 14.4 mEq/L (5-15); Calcium 9.6 mg/dl (8.4-10.2); Carbon Dioxide 20 mmol/L (22.0-30.0); Globulin 3.5 g/dL (1.3-3.2); Glucose 116 mg/dl (74-100); Lipase 49 U/L (23-300); Total Protein,Serum 8.2 g/dl (6.3-8.2)
[2023-12-03 15:29] LABS: Appearance,Urine CLEAR (Clear); Bilirubin,Urine Negative (Negative); Blood, Urine Negative (Negative); Color,Urine YELLOW (Yellow); Glucose,Urine (UA) Negative (Negative); Ketones,Urine Negative (Negative); Leukocyte Esterase,Urine Negative (Negative); Nitrate,Urine Negative (Negative); Protein,Urine TRACE (Negative); Urobilinogen,Urine 0.2 EU/dl (0.2)
--- NOTE | 2023-12-03 15:34 | HMH.EDGENADL ---
Discharge Plan Disposition Patient Disposition: Admitted Clinical Impressions Clinical Impression: SBO (small bowel obstruction), JULIAN (acute kidney injury), Hypertension Discharge ED Provider: Criss Jesus General Adult HPI General Chief complaint: Abdominal Pain Stated complaint: abd pain Time Seen by Provider: 12/03/23 13:36 Mode of Arrival: Ambulatory Limitations: No Limitations Description of Symptoms (Recalled from ER Triage Doc. by RN): PT REPORTS ABDOMINAL PAIN THAT STARTED ABOUT 0700 THIS AM, REPORTS NORMAL BM THIS MORNING, HX OF SBO. PT DENIES N/V/D History of Present Illness HPI narrative: This patient is an 88-year-old male with a history of hypertension, hypertensive urgency, BPH, GERD, and hematuria presenting to the emergency department with concern for generalized abdominal pain. He reports that it is mostly in his lower abdomen. It started around 7:00 this morning. He has normal bowel movement this morning but this did not help the pain. He reports he has a history of bowel blockage and thinks this feels similar. He notes nausea but no vomiting. He states right now he feels like he may be spiking a fever, but denies fevers at home. No difficulty with urinating, hematuria, hematochezia, melena, diarrhea, or other concerns. Related Data Home Medications Medication Instructions Recorded Confirmed doxazosin 1 mg tablet 1 mg PO DAILY PROSTATE 05/26/17 12/03/23 esomeprazole magnesium 40 mg 40 mg PO DAILY GERD 05/26/17 12/03/23 capsule,delayed release finasteride 5 mg tablet 5 mg PO DAILY PROSTATE 05/26/17 12/03/23 lisinopril 10 mg tablet 10 mg PO BID Hypertension 05/26/17 12/03/23 famotidine 20 mg tablet 20 mg PO HS GERD 07/28/21 12/03/23 Allergies Allergy/AdvReac Type Severity Reaction Status Date / Time Sulfa (Sulfonamide Allergy Verified 09/02/21 12:45 Antibiotics) [facility] Disclaimer: The information contained in this section may have been updated after the patient was seen, as this information can be updated by other users. Medical History BPH (benign prostatic hyperplasia) Cancer Prostate disorder Hypertension Surgical History Hx of colonoscopy S/P right inguinal herniorrhaphy History of tonsillectomy Family History (Updated 12/03/23 @ 18:49 by Nora Addison RN) Other Heart disease Social History (Updated 12/03/23 @ 18:50 by Nora Addison, RN) Smoking Status: Never smoker alcohol intake: never substance use type: denies use current occupational status: retired Travel in the last 8 weeks: None household members: none housing: house current occupational exposures/hazards: No caffeine: Yes ROS Obtained: Yes All systems reviewed & no additional complaints except as documented Physical Exam General General appearance: alert and in no apparent distress Head Head exam: atraumatic and normocephalic Eye Eye exam: Present normal appearance, PERRL and EOMI ENT ENT exam: Present normal exam, normal oropharynx, mucous membranes moist and normal external ear exam Neck Neck exam: Present normal inspection, full ROM and trachea midline; Absent tenderness Chest Chest inspection: Present normal inspection and symmetric chest wall rise; Absent tenderness Respiratory Respiratory exam: Present normal lung sounds bilaterally; Absent respiratory distress, wheezes, stridor or accessory muscle use Cardiovascular Cardiovascular exam: Present regular rate and normal rhythm Abdominal Exam Abdominal exam: Present soft and tenderness (lower abdomen); Absent distention, guarding, rebound or rigidity Extremities Exam Extremities exam: Present normal inspection, full ROM and normal capillary refill; Absent tenderness or edema Back Exam Back exam: Present normal inspection and full ROM; Absent tenderness Neurological Exam Neurological exam: Present alert, oriented X3, CN II-XII intact and normal gait; Absent motor sensory deficit Psychiatric Psychiatric exam: Present normal affect and normal mood Skin Skin exam: Present warm and dry Medical Decision Making Medical Records Medical records reviewed: Yes I reviewed the patient's medical records. Vidal Inquiry Pt receiving controlled substance: No Vital Signs: 12/03/23 13:20 12/03/23 14:23 12/03/23 15:22 Temperature 98.5 F 98.5 F Temperature Source Oral Oral Pulse Rate 69 Pulse Rate [Right Brachial] 74 62 Respiratory Rate 18 18 16 Blood Pressure 167/52 H Blood Pressure [Right Arm] 186/71 H 134/53 L Blood Pressure Mean Blood Pressure Mean [Right Arm] 109 80 Blood Pressure Source Automatic Cuff Blood Pressure Source [Right Arm] Automatic Cuff Automatic Cuff Blood Pressure Position Sitting Blood Pressure Position [Right Arm] Sitting Sitting 02 Sat by Pulse Oximetry 98 98 97 Oxygen Delivery Method Room Air Room Air Room Air Oxygen Flow Rate (LPM) 12/03/23 17:36 12/03/23 18:15 12/03/23 18:15 Temperature 98.0 F 98.2 F Temperature Source Oral Pulse Rate 90 80 80 Pulse Rate [Right Brachial] Respiratory Rate 18 16 16 Blood Pressure 191/78 H 158/78 H 158/78 H Blood Pressure [Right Arm] Blood Pressure Mean 115 Blood Pressure Mean [Right Arm] Blood Pressure Source Automatic Cuff Automatic Cuff Blood Pressure Source [Right Arm] Blood Pressure Position Blood Pressure Position [Right Arm] 02 Sat by Pulse Oximetry 98 97 Oxygen Delivery Method Nasal Cannula Room Air Oxygen Flow Rate (LPM) 3 Lab Data Lab results reviewed: Yes I reviewed the patient's lab results. Lab Results 12/03/23 14:05: WBC 7.0, RBC 4.00 L, Hgb 13.8 L, Hct 43.5, MCV 108.7 H, MCH 34.5 H, MCHC 31.8, RDW 13.4, Plt Count 143, MPV 9.0, Neut % (Auto) 74.3, Lymph % (Auto) 20.0, [place] % (Auto) 4.8, Eos % (Auto) 0.4, Baso % (Auto) 0.4, Neut # (Auto) 5.2, Lymph # (Auto) 1.4, [place] # (Auto) 0.3, Eos # (Auto) 0.0, Baso # (Auto) 0.0, Sodium 136, Potassium 5.4 H, Chloride 107, Carbon Dioxide 20 L, Anion Gap 14.4, BUN 21 H, Creatinine 1.40 H, Estimated Creat Clear 39, Estimated GFR 48 L, Est GFR ( Amer) 58 L, Glucose 116 H, Calcium 9.6, Total Bilirubin 1.0, AST 47, ALT 20, Alkaline Phosphatase 66, Total Protein 8.2, Albumin 4.7, Globulin 3.5 H, Albumin/Globulin Ratio 1.3, Lipase 49 12/03/23 15:20: Urine Color Yellow, Urine Appearance Clear, Urine pH 6.0, Ur Specific [place] 1.020, Urine Protein Trace, Urine Glucose (UA) Negative, Urine Ketones Negative, Urine Blood Negative, Urine Nitrate Negative, Urine Bilirubin Negative, Urine Urobilinogen 0.2, Ur Leukocyte Esterase Negative, Urine RBC Occasional, Urine WBC None, Ur Squamous Epith Cells Occasional, Urine Bacteria None 12/03/23 17:30: Sodium 136, Potassium 4.8, Chloride 106, Carbon Dioxide 23, Anion Gap 11.8, BUN 21 H, Creatinine 1.40 H, Estimated Creat Clear 39, Estimated GFR 48 L, Est GFR ( Amer) 58 L, Glucose 120 H, Lactate 0.9, Calcium 9.6 12/03/23 14:05 12/03/23 17:30 Orders (Tests/Meds): ED MEDICATIONS Generic Name Dose Route Start Last Admin Trade Name Freq PRN Reason Stop Dose Admin Acetaminophen 1,000 mg 12/03/23 17:54 Acetaminophen 325mg Tab PO 01/02/24 17:53 Q6 PRN Fever or Mild Pain (1-3) Amlodipine Besylate 5 mg 12/03/23 18:15 12/03/23 18:42 Amlodipine 5mg Tablet PO 01/02/24 18:14 5 mg DAILY NANNETTE Administration Doxazosin Mesylate 1 mg 12/03/23 17:54 12/03/23 18:42 Doxazosin Mesylate 1 Mg Tablet PO 12/03/23 17:55 1 mg ONCE ONE Administration Finasteride 5 mg 12/03/23 21:00 Finasteride 5mg Tablet PO 01/02/24 20:59 HS NANNETTE Heparin Sodium (Porcine) 5,000 unit 12/03/23 21:00 Heparin Sodium 5,000 Unit/Ml Vial SQ 01/02/24 20:59 Q12 NANNETTE Hydralazine HCl 50 mg 12/03/23 18:00 Hydralazine Hcl 25mg Tablet PO 01/02/24 20:59 TID PRN Blood Pressure - High Sodium Chloride 1,000 mls @ 125 mls/hr 12/03/23 18:00 12/03/23 18:42 Sod Chlor 0.9% 1000ml Bag IV 01/02/24 17:59 125 mls/hr .Q8H NANNETTE Administration Melatonin 5 mg 12/03/23 21:00 Melatonin 5mg Tablet PO 01/02/24 20:59 HS NANNETTE Morphine Sulfate 2 mg 12/03/23 17:54 Morphine 2mg/Ml Syringe IV 01/02/24 17:53 Q4H PRN Severe Pain (7-10) Ondansetron HCl 4 mg 12/03/23 17:54 Ondansetron 4mg/2ml Vial IV 01/02/24 17:53 Q8HP PRN Nausea Pantoprazole Sodium 40 mg 12/03/23 18:15 12/03/23 18:42 Pantoprazole 40mg Tablet PO 01/02/24 18:14 40 mg DAILY NANNETTE Administration Discontinued Medications Generic Name Dose Route Start Last Admin Trade Name Freq PRN Reason Stop Dose Admin Acetaminophen 1,000 mg 12/03/23 15:09 12/03/23 15:17 Acetaminophen 1,000mg/100ml Vial IV 12/03/23 15:10 1,000 mg ONCE ONE Administration Lactated Ringer's 1,000 mls @ 999 mls/hr 12/03/23 14:59 12/03/23 15:00 Lactated Ringer's 1000 Ml Bag IV 12/03/23 15:59 999 mls/hr .Q1H1M ONE Administration Ketorolac Tromethamine 15 mg 12/03/23 15:09 12/03/23 15:17 Ketorolac 30mg/Ml Vial IV 12/03/23 15:10 15 mg ONCE ONE Administration Ondansetron HCl 4 mg 12/03/23 15:09 12/03/23 15:17 Ondansetron 4mg/2ml Vial IV 12/03/23 15:10 4 mg ONCE ONE Administration ORDERS Category Date Time Status CT abdomen pelvis wo con Stat Cat Scan 12/03/23 15:09 Completed BMP [Basic Metabolic Panel] Stat Lab 12/03/23 17:30 Completed Basic Metabolic Panel AMLAB Lab 12/04/23 06:00 Ordered Basic Metabolic Panel AMLAB Lab 12/05/23 06:00 Ordered Basic Metabolic Panel AMLAB Lab 12/06/23 06:00 Ordered Complete Blood Count Auto Diff Stat Lab 12/03/23 14:05 Completed Comprehensive Metabolic Panel Stat Lab 12/03/23 14:05 Completed Lactic Acid Stat Lab 12/03/23 17:30 Completed Lipase Stat Lab 12/03/23 14:05 Completed UA [Urinalysis and Microscopic] Stat Lab 12/03/23 15:20 Completed ECG Data Tracing #1: I reviewed this ECG and interpreted as documented below: Normal sinus rhythm with a ventricular rate of [address] changes concerning for ischemia. First-degree AV block with a GA interval of 223 ms. Right bundle branch block noted. No peaked T waves. ECG initial impression date: 12/03/23 ECG initial impression time: 16:02 Medical Decision Narrative: In summary, this patient is a 88-year-old male presenting to the Emergency Department for evaluation of abdominal pain. Differential diagnoses considered include but are not limited to bowel obstruction, constipation, gastritis, viral syndrome, UTI, pyelonephritis, pancreatitis, diverticulitis, appendicitis. Ruling out the most morbid conditions drove assessment. On exam, the patient is well-appearing with lower abdominal tenderness but no other acutely concerning abnormalities. Workup included CBC, CMP, lipase, urinalysis, and CT abdomen and pelvis with IV contrast. Patient's labs demonstrated mild hyperkalemia with a potassium of 5.4, for which EKG was obtained. No EKG changes related to hyperkalemia noted. He also has a mild bump in his creatinine to 1.4 from a baseline of around 1.2. Patient is given a bolus of IV fluids here. He is also given IV acetaminophen, Toradol, and Zofran for symptomatic improvement. I independently interpreted CT scan prior to the radiologist read and noted concern for possible small bowel obstruction. Please see their read for final interpretation. On reassessment, patient had mild improvement after administration of interventions above, but he continues to have pain. Given concerns for possible small bowel obstruction versus ileus according to radiology read, I feel the patient would benefit from admission for monitoring. I had an interactive discussion with the hospitalist who admitted him in stable condition Critical Care Critical Care Time Critical Care Time: No
[2023-12-03 15:39] LABS: RBC,Urine Occasional #/hpf (0-3); Squamous Epithelial Cell,Urine Occasional #/hpf (0-5)
--- NOTE | 2023-12-03 16:01 | ECG_ITS ---
APPROVED REPORT Exam: Resting ECG HR:81 bpm ECG Measurements Heart Rate 81 AXES CA 223 P 68 QRSd 146 QRS 142 QT 382 T 9 QTc 420 Conclusion SINUS RHYTHM WITH FIRST DEGREE AV BLOCK INDETERMINATE AXIS RIGHT BUNDLE BRANCH BLOCK [120+ ms QRS DURATION, UPRIGHT V1, 40+ ms S IN I/aVL/V4/V5/V6] ABNORMAL ECG Electronically signed by : FABRICE TELLO, 12/03/2023 21:22:53
--- NOTE | 2023-12-03 16:18 | PC.NURSE ---
pt to CT
--- NOTE | 2023-12-03 17:17 | PC.NURSE ---
DR TELLO AT BEDSIDE TO UPDATE PT
--- NOTE | 2023-12-03 17:21 | PC.NURSE ---
Dr. Jesus s/w Dr. Fisher for possible admission
[2023-12-03 17:45] LABS: Chloride 106 mmol/L (98-107); Potassium 4.8 mmoL/L (3.5-5.1); Sodium 136 mmol/L (136-145)
[2023-12-03 17:48] LABS: Anion Gap 11.8 mEq/L (5-15); Blood Urea Nitrogen 21 mg/dl (9-20); Carbon Dioxide 23 mmol/L (22.0-30.0); Creatinine Clearance Estimated 39 mL/min (50-200); Estimated Glomerular Filt Rate 48 ml/min (>60); GFR (African American) 58 ML/MIN (>60)
[2023-12-03 17:49] LABS: Calcium 9.6 mg/dl (8.4-10.2); Glucose 120 mg/dl (74-100); Lactic Acid 0.9 mmol/L (0.7-2.1)
--- NOTE | 2023-12-03 17:53 | PC.NURSE ---
DR TELLO UPDATING HOSPITALIST FOR ADMISSION
--- NOTE | 2023-12-03 17:54 | PC.NURSE ---
PRODUCT OWNER NOTIFIED OF ADMISSION
--- NOTE | 2023-12-03 18:01 | P.HP_ITS ---
History of Present Illness *Admission Date: 12/03/23 *Reason for visit:: Lower abdominal pain *History of present illness: This is an 88-year-old male that presents to [facility] emergency department with concerns of lower abdominal pain over several days not improving. He reports a past medical history for small bowel obstruction. His pain started approximately 7 AM this morning and it has crescendoed and through the morning hours. He was able to have a bowel movement this morning with no relief of pain. He identifies associated nausea but no emesis. He reports subjective fever but no chills, diarrhea, melena, hematochezia or hematemesis. He describes loss of appetite. He typically follows with a local general surgeon. In the ED his blood pressure was 191/78 saturating appropriately on room air and afebrile. His WBC was normal with hemoglobin 13.8 and normal platelets. His electrolytes were normal with a BUN 21 and creatinine 1.4 and a baseline of 1.0. A CT of the abdomen and pelvis without contrast identified multiple loops of mildly dilated small bowel with air-fluid levels. [facility] Medical History (Updated 12/03/23 @ 18:14 by Lenny Fisher MD) BPH (benign prostatic hyperplasia) Cancer Prostate disorder Hypertension Surgical History (Updated 12/03/23 @ 18:14 by Lenny Fisher MD) Hx of colonoscopy S/P right inguinal herniorrhaphy History of tonsillectomy Social History Smoking Status: Never smoker alcohol intake: never substance use type: denies use current occupational status: retired Travel in the last 8 weeks: None household members: none housing: house current occupational exposures/hazards: No caffeine: Yes Review of Systems Review of Systems Review of systems:: pertinent systems reviewed and negative unless documented below ENT Ears, Nose, Mouth, and Throat: Denies odynophagia *Cardiovascular Cardiovascular: Denies chest pain, Denies dyspnea and Denies dyspnea on exertion *Respiratory Respiratory: Denies dyspnea and Denies dyspnea on exertion *Gastrointestinal Gastrointestinal: Reports abdominal pain, Denies coffee ground emesis, Denies diarrhea, Denies fecal incontinence, Denies hematemesis, Denies hematochezia, Denies loose stools, Denies melena, Reports nausea, Denies odynophagia and Denies vomiting *Neurologic Neurologic: Reports system reviewed and no additional complaints, except as documented Meds Home Medications and Allergies Home Medications Medication Instructions Recorded Confirmed Type doxazosin 1 mg tablet 1 mg PO DAILY PROSTATE 05/26/17 12/03/23 History esomeprazole magnesium 40 mg 40 mg PO DAILY GERD 05/26/17 12/03/23 History capsule,delayed release finasteride 5 mg tablet 5 mg PO DAILY PROSTATE 05/26/17 12/03/23 History lisinopril 10 mg tablet 10 mg PO DAILY Hypertension 05/26/17 12/03/23 History famotidine 20 mg tablet 20 mg PO HS GERD 07/28/21 12/03/23 History New Prescriptions to Start Prescriptions: Allergies Allergy/AdvReac Type Severity Reaction Status Date / Time Sulfa (Sulfonamide Allergy Verified 09/02/21 12:45 Antibiotics) Exam Data for Last 24 hours Vital signs and Labs for Last 24 Hours: Temp Pulse Resp BP Pulse Ox O2 Del Method 98.5 F 90 18 191/78 H 98 Room Air 12/03/23 14:23 12/03/23 17:36 12/03/23 17:36 12/03/23 17:36 12/03/23 17:36 12/03/23 15:22 Laboratory Results - last 24 hr 12/03/23 14:05: WBC 7.0, RBC 4.00 L, Hgb 13.8 L, Hct 43.5, MCV 108.7 H, MCH 34.5 H, MCHC 31.8, RDW 13.4, Plt Count 143, MPV 9.0, Neut % (Auto) 74.3, Lymph % (Auto) 20.0, [place] % (Auto) 4.8, Eos % (Auto) 0.4, Baso % (Auto) 0.4, Neut # (Auto) 5.2, Lymph # (Auto) 1.4, [place] # (Auto) 0.3, Eos # (Auto) 0.0, Baso # (Auto) 0.0, Sodium 136, Potassium 5.4 H, Chloride 107, Carbon Dioxide 20 L, Anion Gap 14.4, BUN 21 H, Creatinine 1.40 H, Estimated Creat Clear 39, Estimated GFR 48 L, Est GFR ( Amer) 58 L, Glucose 116 H, Calcium 9.6, Total Bilirubin 1.0, AST 47, ALT 20, Alkaline Phosphatase 66, Total Protein 8.2, Albumin 4.7, Globulin 3.5 H, Albumin/Globulin Ratio 1.3, Lipase 49 12/03/23 15:20: Urine Color Yellow, Urine Appearance Clear, Urine pH 6.0, Ur Specific [place] 1.020, Urine Protein Trace, Urine Glucose (UA) Negative, Urine Ketones Negative, Urine Blood Negative, Urine Nitrate Negative, Urine Bilirubin Negative, Urine Urobilinogen 0.2, Ur Leukocyte Esterase Negative, Urine RBC Occasional, Urine WBC None, Ur Squamous Epith Cells Occasional, Urine Bacteria None 12/03/23 17:30: Sodium 136, Potassium 4.8, Chloride 106, Carbon Dioxide 23, Anion Gap 11.8, BUN 21 H, Creatinine 1.40 H, Estimated Creat Clear 39, Estimated GFR 48 L, Est GFR ( Amer) 58 L, Glucose 120 H, Lactate 0.9, Calcium 9.6 I & O for Last 24 hours: Intake & Output 11/30/23 12/01/23 12/02/23 12/03/23 23:59 23:59 23:59 23:59 Weight 74.843 kg Constitutional Constitutional: no acute distress and cooperative *Routine HEENT Exam Head: Present normocephalic Eye: Present EOMI and PERRL ENT: Present mucous membranes moist *Routine Neck Exam Neck: Absent lymphadenopathy *Routine Respiratory Exam Respiratory: Present CTA bilaterally, normal respiratory effort and symmetric chest movement *Routine Cardiovascular Exam Cardiovascular: Present RRR *Routine Abdominal Exam Abdominal: Present soft and tenderness; Absent distended, rebound or guarding *Routine Rectal Exam Rectal:: deferred *Routine Genitalia Exam Genitalia:: deferred *Routine Extremities Exam Extremities: Present full ROM and normal capillary refill; Absent edema *Routine Skin Exam Skin: Present warm; Absent rash *Routine Neurological Exam Neurological: Present alert, oriented X3, vision grossly intact, hearing grossly intact and normal speech; Absent sensory deficit or motor deficit Routine Psychiatric Exam Psychiatric: Present cooperative Assessment and Plan *Assessment and plan (1) SBO (small bowel obstruction): Status: Acute Category: Medical Code(s): K56.609 - Unspecified intestinal obstruction, unspecified as to partial versus complete obstruction (2) JULIAN (acute kidney injury): Status: Acute Category: Medical Code(s): N17.9 - Acute kidney failure, unspecified (3) Hypertensive urgency: Status: Acute Category: Medical Code(s): I16.0 - Hypertensive urgency Plan This is an 88-year-old male that presents to the ED with abdominal pain and imaging identifies small bowel obstruction. Previous abdominal surgery and right inguinal herniography noted. Problems addressed as follows: Small bowel obstruction N.p.o. status IV fluid resuscitation CT abdomen and pelvis with small bowel obstruction ED lipase normal Trending bowel flatus and elimination General surgery consult if not improved with bowel rest IV antiemetic therapy Pain control Parenterally administered controlled substance for comfort care Acute kidney injury IV fluid resuscitation Avoiding home MADELYN inhibitor therapy Trending electrolytes and creatinine Avoiding NSAIDs Hypertensive urgency Routine blood pressure monitoring Avoiding home MADELYN inhibitor therapy Dihydropyridine calcium channel balwinder therapy Peripheral vasodilator therapy as needed The length of stay for this patient will be 2 midnights or greater due to above diagnoses.
--- NOTE | 2023-12-03 18:18 | PC.NURSE ---
Gave report to Nora Addison RN
[2023-12-03] MEDS: AMLODIPINE 5MG TABLET 5 MG PO (18:42)
[2023-12-03] MEDS: PANTOPRAZOLE 40MG TABLET 40 MG PO (18:42)
[2023-12-03] MEDS: 0.9 % SODIUM CHLORIDE 1000ML 1,000 ML 125 ML IV (18:42)
[2023-12-03] MEDS: DOXAZOSIN MESYLATE 1 MG TABLET PO (18:42)
[2023-12-03] MEDS: MELATONIN 5MG TABLET 5 MG PO (21:06)
[2023-12-03] MEDS: HEPARIN SODIUM 5,000 UNIT/ML VIAL 5000 UNIT SQ (21:06)
[2023-12-03] MEDS: ACETAMINOPHEN 500MG TAB 1000 MG PO (21:27)
[2023-12-04] MEDS: 0.9 % SODIUM CHLORIDE 1000ML 1,000 ML 125 ML IV ×2 (02:48→11:08)
[2023-12-04 04:00] VITALS: BP 172/96; PULSE 83; RESP 18; TEMP 36.5; O2SAT 96; BMI 22.3
--- NOTE | 2023-12-04 04:38 | PC.NURSE ---
pt. A&OX4, ambulates in room with standby assistance, reports some pain in lower left abdomen, tylenol given for pain one time this shift with satisfactory outcome, reports no flatus this shift, bowel sounds present, call button is in reach
[2023-12-04 07:42] VITALS: BP 197/72; PULSE 86; RESP 17; TEMP 36.5; O2SAT 94
[2023-12-04 07:50] LABS: Blood Urea Nitrogen 20 mg/dl (9-20); Calcium 8.9 mg/dl (8.4-10.2); Carbon Dioxide 22 mmol/L (22.0-30.0); Chloride 109 mmol/L (98-107); Creatinine Clearance Estimated 45 mL/min (50-200); Estimated Glomerular Filt Rate 52 ml/min (>60); GFR (African American) 63 ML/MIN (>60); Glucose 79 mg/dl (74-100); Sodium 137 mmol/L (136-145)
[2023-12-04 08:05] LABS: Procalcitonin 0.051 ng/mL (0.0-2.0)
--- NOTE | 2023-12-04 08:29 | HMH.PHAINT1 ---
Pharmacy Intervention Comments: MEDICATION RECONCILIATION COMPLETE USING EXTERNAL PHARMACY FILL HISTORY.
[2023-12-04] MEDS: HEPARIN SODIUM 5,000 UNIT/ML VIAL 5000 UNIT SQ ×2 (08:49→20:01)
[2023-12-04] MEDS: AMLODIPINE 5MG TABLET 5 MG PO (08:49)
[2023-12-04] MEDS: PANTOPRAZOLE 40MG TABLET 40 MG PO (08:49)
--- NOTE | 2023-12-04 10:20 | PC.NURSE ---
pt ambulated in the hallway independently. tolerated well. no c/o of sob. pt stated he passed flatus around 0900. notified. pt is now resting in the chair, call light within reach, no further requests at this time.
--- NOTE | 2023-12-04 13:40 | EXP.PN ---
Subjective *Date: 12/04/23 *Time: 13:40 Interval history: The patient is seen and examined at bedside today. I am accompanied by his nurse Kristy. Nursing staff report that he remains afebrile with some elevated blood pressures and now saturating appropriately on room air. He requested a clear liquid diet and experienced nausea and vomiting x 1 a couple hours later. He has identified ongoing abdominal distention and discomfort. We have discussed a general surgery consult and he is amendable. We have reviewed his pain medicine regimen. We have discussed, revisited and reviewed his CT scan of abdomen findings. Morning labs have been ordered. Exam Data for Last 24 hours Vital signs and Labs for Last 24 Hours: Temp Pulse Resp BP Pulse Ox O2 Del Method O2 Flow Rate 97.7 F 86 17 197/72 H 94 L Room Air 3 12/04/23 07:42 12/04/23 07:42 12/04/23 07:42 12/04/23 07:42 12/04/23 07:42 12/04/23 08:31 12/03/23 18:15 Laboratory Results - last 24 hr 12/03/23 14:05: WBC 7.0, RBC 4.00 L, Hgb 13.8 L, Hct 43.5, MCV 108.7 H, MCH 34.5 H, MCHC 31.8, RDW 13.4, Plt Count 143, MPV 9.0, Neut % (Auto) 74.3, Lymph % (Auto) 20.0, [place] % (Auto) 4.8, Eos % (Auto) 0.4, Baso % (Auto) 0.4, Neut # (Auto) 5.2, Lymph # (Auto) 1.4, [place] # (Auto) 0.3, Eos # (Auto) 0.0, Baso # (Auto) 0.0, Sodium 136, Potassium 5.4 H, Chloride 107, Carbon Dioxide 20 L, Anion Gap 14.4, BUN 21 H, Creatinine 1.40 H, Estimated Creat Clear 39, Estimated GFR 48 L, Est GFR ( Amer) 58 L, Glucose 116 H, Calcium 9.6, Total Bilirubin 1.0, AST 47, ALT 20, Alkaline Phosphatase 66, Total Protein 8.2, Albumin 4.7, Globulin 3.5 H, Albumin/Globulin Ratio 1.3, Lipase 49 12/03/23 15:20: Urine Color Yellow, Urine Appearance Clear, Urine pH 6.0, Ur Specific [place] 1.020, Urine Protein Trace, Urine Glucose (UA) Negative, Urine Ketones Negative, Urine Blood Negative, Urine Nitrate Negative, Urine Bilirubin Negative, Urine Urobilinogen 0.2, Ur Leukocyte Esterase Negative, Urine RBC Occasional, Urine WBC None, Ur Squamous Epith Cells Occasional, Urine Bacteria None 12/03/23 17:30: Sodium 136, Potassium 4.8, Chloride 106, Carbon Dioxide 23, Anion Gap 11.8, BUN 21 H, Creatinine 1.40 H, Estimated Creat Clear 39, Estimated GFR 48 L, Est GFR ( Amer) 58 L, Glucose 120 H, Lactate 0.9, Calcium 9.6 12/04/23 06:09: Sodium 137, Potassium 4.0, Chloride 109 H, Carbon Dioxide 22, Anion Gap 10.0, BUN 20, Creatinine 1.30 H, Estimated Creat Clear 45, Estimated GFR 52 L, Est GFR ( Amer) 63, Glucose 79 D, Calcium 8.9, Procalcitonin 0.051 I & O for Last 24 hours: Intake & Output 12/01/23 12/02/23 12/03/23 12/04/23 23:59 23:59 23:59 23:59 Intake Total 1416 / 1416 Output Total 0 / 0 Balance 1416 / 1416 Weight 74.843 kg 78.925 kg Constitutional Constitutional: no acute distress, average body habitus and cooperative *Routine HEENT Exam Head: Present normocephalic Eye: Present EOMI ENT: Present mucous membranes moist *Routine Neck Exam Neck: Absent lymphadenopathy *Routine Respiratory Exam Respiratory: Present CTA bilaterally, normal respiratory effort and symmetric chest movement *Routine Cardiovascular Exam Cardiovascular: Present RRR *Routine Abdominal Exam Abdominal: Present soft, tenderness and distended; Absent normoactive bowel sounds *Routine Extremities Exam Extremities: Present full ROM and normal capillary refill; Absent edema *Routine Skin Exam Skin: Present warm; Absent rash *Routine Neurological Exam Neurological: Present alert, oriented X3, vision grossly intact and normal speech; Absent sensory deficit, motor deficit or hearing grossly intact Routine Psychiatric Exam Psychiatric: Present normal affect, normal thought process, cooperative, good insight and good judgment Assessment and Plan *Assessment and plan (1) SBO (small bowel obstruction): Status: Acute Category: Medical Code(s): K56.609 - Unspecified intestinal obstruction, unspecified as to partial versus complete obstruction (2) JULIAN (acute kidney injury): Status: Acute Category: Medical Code(s): N17.9 - Acute kidney failure, unspecified (3) Hypertensive urgency: Status: Acute Category: Medical Code(s): I16.0 - Hypertensive urgency Plan This is an 88-year-old male that presents to the ED with abdominal pain and imaging identifies small bowel obstruction. Previous abdominal surgery and right inguinal herniography noted. Problems addressed as follows: Small bowel obstruction N.p.o. status IV fluid resuscitation CT abdomen and pelvis with small bowel obstruction ED lipase normal Trending bowel flatus and elimination General surgery consult if not improved with bowel rest IV antiemetic therapy Pain control Parenterally administered controlled substance for comfort care Acute kidney injury IV fluid resuscitation Avoiding home MADELYN inhibitor therapy Trending electrolytes and creatinine Avoiding NSAIDs Hypertensive urgency Routine blood pressure monitoring Avoiding home MADELYN inhibitor therapy Dihydropyridine calcium channel balwinder therapy Peripheral vasodilator therapy The patient is hospitalized day 1 with above diagnoses complicated by his advanced age. General surgery has been consulted for recommendations. Case management is assisting with discharge needs. Barriers to discharge currently include assessing adequate p.o. intake and effective bowel elimination. Expected date of discharge cannot be determined at present time.
[2023-12-04] MEDS: HYDRALAZINE HCL 25MG TABLET 50 MG PO (14:22)
[2023-12-04] MEDS: ACETAMINOPHEN 500MG TAB 1000 MG PO (14:26)
[2023-12-04] MEDS: HYDROMORPHONE 2MG/ML SYRINGE 0.5 MG IV ×2 (15:16→22:16)
[2023-12-04 16:00] VITALS: BP 187/89; PULSE 81; RESP 16; TEMP 36.6; O2SAT 96
[2023-12-04] MEDS: PANTOPRAZOLE 40MG VIAL 40 MG IV (18:52)
[2023-12-04] MEDS: FAMOTIDINE 20MG TABLET 20 MG PO (18:52)
--- NOTE | 2023-12-04 19:02 | PC.NURSE ---
Provider (Mario Prescott) notified regarding pts worsening acid reflux and abd pain. new orders received, pt treated per JUL.
[2023-12-04 19:53] VITALS: BP 166/68; PULSE 87; RESP 18; TEMP 36.7; O2SAT 95
[2023-12-04] MEDS: MELATONIN 5MG TABLET 5 MG PO (20:00)
[2023-12-04] MEDS: OXYCODONE 5MG IMMEDIATE RELEASE TABLET 10 MG PO (20:01)
[2023-12-04] MEDS: ONDANSETRON 4MG/2ML VIAL 4 MG IV (21:04)
[2023-12-04] MEDS: 0.9 % SODIUM CHLORIDE 1000ML 1,000 ML 100 ML IV (21:04)
--- OUTSIDE RECORDS SUMMARY | 2023-12-04 22:18 | XMS_ITS ---
Author Name Josué Spring Address [address] [place] [id number] Organization Unknown Address [address] [place] [id number] ALLERGIES AND ADVERSE REACTIONS No information ASSESSMENT No information CHIEF COMPLAINT No information MEDICATIONS No information OBJECTIVE DATA No information PHYSICAL EXAMINATION No information TREATMENT PLAN Planned Care Start Date Provider Encounter for Check-up [id number] AC Liz PROBLEMS No information RESULTS No information REVIEW OF SYSTEMS No information SUBJECTIVE DATA No information VITAL SIGNS No information
[2023-12-05] VITALS (8 sets, daily range): BP systolic 136–184; BP diastolic 62–73; PULSE 99–110; RESP 16–21; TEMP 36.6–36.9; O2SAT 95–96; BMI 22.8
[2023-12-05] MEDS: HYDROMORPHONE 2MG/ML SYRINGE 0.5 MG IV ×2 (03:19→08:12)
--- NOTE | 2023-12-05 06:14 | PC.NURSE ---
pt. A&Ox4, ambulates in room with standby assistance, pt restless through the night and states he could not get comfortable and just doesn't feel good, reports pain of 8/10 throughout the shift, medicated per jul for pain, bowel sounds active, no BM or gas this shift, medicated per jul for nausea once, c/o acid reflux throughout the shift, NPO through the night, call button is in reach
[2023-12-05 06:49] LABS: Chloride 109 mmol/L (98-107); Sodium 137 mmol/L (136-145)
[2023-12-05 06:50] LABS: Potassium 4.4 mmoL/L (3.5-5.1)
[2023-12-05 06:52] LABS: Basophils % 0.2 % (0.1-2.0); Blood Urea Nitrogen 14 mg/dl (9-20); Creatinine Clearance Estimated 54 mL/min (50-200); Estimated Glomerular Filt Rate 63 ml/min (>60); GFR (African American) 77 ML/MIN (>60); Hematocrit 34.4 % (42.0-52.0); Hemoglobin 11.6 g/dL (14.1-18.0); Lymphocytes % 10.2 % (10-50); Mean Corpuscular HGB Conc 33.6 g/dL (31.8-35.4); Mean Corpuscular Hemoglobin 35.3 pg (27.0-31.2); Mean Corpuscular Volume 104.9 fl (80-94); Mean Platelet Volume 8.8 fl (7.4-10.4); Monocytes # 0.5 K/mm3 (0.1-1.0); Monocytes % 5.4 % (1.7-9.3); Neutrophils # 7.8 K/mm3 (1.8-7.8); Neutrophils % 84.2 % (37.0-80.0); Platelet Count 197 K/mm3 (142-424); Red Blood Count 3.28 M/mm3 (4.60-6.20); Red Cell Distribution Width 13.5 % (11.5-17.5); White Blood Count 9.2 K/mm3 (4.8-10.8)
[2023-12-05 06:53] LABS: Anion Gap 9.4 mEq/L (5-15); Calcium 9.1 mg/dl (8.4-10.2); Carbon Dioxide 23 mmol/L (22.0-30.0); Glucose 115 mg/dl (74-100)
[2023-12-05] MEDS: OXYCODONE 5MG IMMEDIATE RELEASE TABLET 10 MG PO (07:03)
--- NOTE | 2023-12-05 07:04 | EXP.SURG.CON ---
History of Present Illness *Admission Date: 12/03/23 *Reason for visit:: Small bowel obstruction *History of present illness: Patient is an 88-year-old male with prior history of bowel obstruction reportedly. [facility] with onset of abdominal pain beginning approximately 7 AM that morning with progression throughout the day. He did have a bowel movement. No change in pain. He had nausea. No diarrhea. Subjective fever. He was evaluated in the emergency department and had a CT scan performed without contrast which revealed multiple loops of mildly dilated small bowel with air-fluid levels. The distal small bowel is decompressed. This may represent obstruction or ileus. Multiple gallstones in the gallbladder. Patient had a open right inguinal hernia repair by Dr. Middleton in July 2021 at which time he had a complex indirect hernia with thin hernia sac. He apparently did have a laparoscopy for bowel obstruction approximately a decade ago at [facility] at which time reportedly no obstruction was found. Patient was admitted for inpatient management of bowel obstruction on 12/03/2023. He has remained an inpatient. He describes some ongoing pain. He has had some nausea which she describes as acid reflux . He does not have an NG tube. Surgical consultation was obtained this morning on 12/05/2023. . [facility] Disclaimer: The information contained in this section may have been updated after the patient was seen, as this information can be updated by other users. Medical History BPH (benign prostatic hyperplasia) Cancer Prostate disorder Hypertension Surgical History Hx of colonoscopy S/P right inguinal herniorrhaphy History of tonsillectomy Family History (Updated 12/03/23 @ 18:49 by Nora Addison RN) Other Heart disease Social History (Updated 12/03/23 @ 18:50 by Nora Addison RN) Smoking Status: Never smoker alcohol intake: never substance use type: denies use current occupational status: retired Travel in the last 8 weeks: None household members: none housing: house current occupational exposures/hazards: No caffeine: Yes Review of Systems *Neurologic Neurologic: Reports system reviewed and no additional complaints, except as documented Meds Home Medications and Allergies Home Medications Medication Instructions Recorded Confirmed Type esomeprazole magnesium 40 mg 40 mg PO DAILY 05/26/17 12/04/23 History capsule,delayed release finasteride 5 mg tablet 5 mg PO DAILY 05/26/17 12/04/23 History lisinopril 10 mg tablet 10 mg PO BID 05/26/17 12/04/23 History doxazosin 4 mg tablet 4 mg PO DAILY 12/04/23 12/04/23 History famotidine 40 mg tablet 40 mg PO HS 12/04/23 12/04/23 History New Prescriptions to Start Prescriptions: Allergies Allergy/AdvReac Type Severity Reaction Status Date / Time Sulfa (Sulfonamide Allergy Verified 09/02/21 12:45 Antibiotics) Exam (Inpt) Vital signs and Labs for Last 24 Hours: Temp Pulse Resp BP Pulse Ox O2 Del Method O2 Flow Rate 98.1 F 99 H 16 159/72 H 96 Room Air 3 12/05/23 04:00 12/05/23 04:00 12/05/23 04:00 12/05/23 04:00 12/05/23 04:00 12/05/23 05:00 12/03/23 18:15 Laboratory Results - last 24 hr 12/04/23 06:09: Sodium 137, Potassium 4.0, Chloride 109 H, Carbon Dioxide 22, Anion Gap 10.0, BUN 20, Creatinine 1.30 H, Estimated Creat Clear 45, Estimated GFR 52 L, Est GFR ( Amer) 63, Glucose 79 D, Calcium 8.9, Procalcitonin 0.051 12/05/23 06:20: WBC 9.2 D, RBC 3.28 L, Hgb 11.6 L, Hct 34.4 L, MCV 104.9 H, MCH 35.3 H, MCHC 33.6, RDW 13.5, Plt Count 197 D, MPV 8.8, Neut % (Auto) 84.2 H, Lymph % (Auto) 10.2, [place] % (Auto) 5.4, Eos % (Auto) 0.0 L, Baso % (Auto) 0.2, Neut # (Auto) 7.8, Lymph # (Auto) 1.0, [place] # (Auto) 0.5, Eos # (Auto) 0.0, Baso # (Auto) 0.0, Sodium 137, Potassium 4.4, Chloride 109 H, Carbon Dioxide 23, Anion Gap 9.4, BUN 14 D, Creatinine 1.10, Estimated Creat Clear 54, Estimated GFR 63, Est GFR ( Amer) 77 D, Glucose 115 H, Calcium 9.1 I & O for Labs for Last 24 Hours: Intake & Output 12/02/23 12/03/23 12/04/23 12/05/23 11:59 11:59 11:59 11:59 Intake Total 1416 / 1416 1545 / 1545 Output Total 0 / 0 0 / 0 Balance 1416 / 1416 1545 / 1545 Weight 174 lb 177 lb 11.2 oz Constitutional: no acute distress Head: Present normocephalic Respiratory: Present CTA bilaterally Cardiac: Present Reg Rate and Rhythm GI: Present distention and tenderness Rectal (male): Present deferred Results Labs 12/05/23 06:20 12/05/23 06:20 Labs: Laboratory Results - last 24 hr 12/04/23 06:09: Sodium 137, Potassium 4.0, Chloride 109 H, Carbon Dioxide 22, Anion Gap 10.0, BUN 20, Creatinine 1.30 H, Estimated Creat Clear 45, Estimated GFR 52 L, Est GFR ( Amer) 63, Glucose 79 D, Calcium 8.9, Procalcitonin 0.051 12/05/23 06:20: WBC 9.2 D, RBC 3.28 L, Hgb 11.6 L, Hct 34.4 L, MCV 104.9 H, MCH 35.3 H, MCHC 33.6, RDW 13.5, Plt Count 197 D, MPV 8.8, Neut % (Auto) 84.2 H, Lymph % (Auto) 10.2, [place] % (Auto) 5.4, Eos % (Auto) 0.0 L, Baso % (Auto) 0.2, Neut # (Auto) 7.8, Lymph # (Auto) 1.0, [place] # (Auto) 0.5, Eos # (Auto) 0.0, Baso # (Auto) 0.0, Sodium 137, Potassium 4.4, Chloride 109 H, Carbon Dioxide 23, Anion Gap 9.4, BUN 14 D, Creatinine 1.10, Estimated Creat Clear 54, Estimated GFR 63, Est GFR ( Amer) 77 D, Glucose 115 H, Calcium 9.1 Assessment and Plan *Assessment and plan (1) SBO (small bowel obstruction): Status: Acute Category: Medical Code(s): K56.609 - Unspecified intestinal obstruction, unspecified as to partial versus complete obstruction Plan Patient has findings consistent with at least partial small bowel obstruction. Plan is for attempt at nonoperative management. Place nasogastric tube. I explained to him that he could require operative intervention. At this time attempt nonoperative management with nasogastric tube, bowel rest, serial abdominal examinations and radiographs. .
[2023-12-05] MEDS: 0.9 % SODIUM CHLORIDE 1000ML 1,000 ML 100 ML IV (08:02)
[2023-12-05] MEDS: AMLODIPINE 5MG TABLET 5 MG PO (08:10)
[2023-12-05] MEDS: PANTOPRAZOLE 40MG TABLET 40 MG PO (08:10)
[2023-12-05] MEDS: FINASTERIDE 5MG TABLET 5 MG PO (08:11)
[2023-12-05] MEDS: HEPARIN SODIUM 5,000 UNIT/ML VIAL 5000 UNIT SQ ×2 (08:11→21:49)
[2023-12-05] MEDS: ONDANSETRON 4MG/2ML VIAL 4 MG IV (08:29)
[2023-12-05] MEDS: LIDOCAINE 2% UROJET 10ML 10 ML TP (10:17)
--- NOTE | 2023-12-05 10:39 | XR_ITS ---
FINAL REPORT CLINICAL HISTORY: CONFIRM NG TUBE PLACEMENT FINDINGS: SINGLE VIEW ABDOMEN A single view of the abdomen was obtained. There is an NG tube in the stomach. There are dilated small bowel loops which could represent small bowel obstruction. No abnormal calcifications are identified. IMPRESSION: NG tube in the stomach. Dilated small bowel loops which could represent small bowel obstruction. Reviewed, Interpreted and Dictated by Maria Elena Garza MD Transcribed by Kalli Mcneal Authenticated and [facility]
--- NOTE | 2023-12-05 10:40 | PC.NURSE ---
NG TUBE PLACE TO RIGHT NARE, TUBE IS AT 62 AT THE NARE. PT TOLERATED NG PLACEMENT WELL. AFTER PLACEMENT THERE WAS A GROSS AMOUNT OF NG DRAINAGE THAT WAS BROWN/GREEN IN COLOR.
--- NOTE | 2023-12-05 11:40 | EXP.ACUTE.PN ---
Subjective *Date: 12/05/23 *Time: 11:44 Interval history: Hypoactive bowel sounds noted on physical exam today. Some abdominal distention noted. Patient evaluated with family present. States abdominal pain slightly better versus admission assessment. Medical Exam Vital signs and Labs for Last 24 Hours: Vital Signs Temp Pulse Resp BP Pulse Ox O2 Del Method 12/05/23 11:00 Room Air 12/05/23 09:00 Room Air 12/05/23 08:21 Room Air 12/05/23 07:26 98 F 106 H 21 165/73 H 95 Room Air 12/05/23 07:00 Room Air 12/05/23 05:00 Room Air 12/05/23 04:00 98.1 F 99 H 16 159/72 H 96 Room Air 12/05/23 03:00 Room Air 12/05/23 01:00 Room Air 12/04/23 23:00 Room Air 12/04/23 21:00 Room Air 12/04/23 20:00 Room Air 12/04/23 19:53 98.0 F 87 18 166/68 H 95 Room Air 12/04/23 18:38 Room Air 12/04/23 17:00 Room Air 12/04/23 16:00 97.9 F 81 16 187/89 H 96 Room Air 12/04/23 15:00 Room Air 12/04/23 13:00 Room Air Intake and Output 12/04/23 12/05/23 12/05/23 23:59 07:59 15:59 Intake Total 2015 945 / 945 Output Total 0 / 0 0 / 1650 1650 / 1650 Balance 2015 945 / -705 -1650 / -705 Intake: Intake, Oral Amount 0 / 0 Intake, Oral Supplement Amount 0 / 0 Intake, Total IV Amount 2015 945 / 945 0.9 % Sodium Chloride 1000ML 1, 2015 945 / 945 000 ml @ 100 mls/hr IV .Q10H [facility] Rx#:[id number] Output: Output, Urine Amount 0 / 0 0 / 0 0 / 0 Output, Emesis Amount 100 / 100 Output, Gastric Drainage Amount 1550 / 1550 Right Nare 1550 / 1550 Other: Number of Voids 0 0 Number of Unmeasured Voids 1 1 1 Weight 80.603 kg Patient Weight 12/05/23 23:59 Weight 80.603 kg Laboratory Results - last 24 hr 12/05/23 06:20: WBC 9.2 D, RBC 3.28 L, Hgb 11.6 L, Hct 34.4 L, MCV 104.9 H, MCH 35.3 H, MCHC 33.6, RDW 13.5, Plt Count 197 D, MPV 8.8, Neut % (Auto) 84.2 H, Lymph % (Auto) 10.2, [place] % (Auto) 5.4, Eos % (Auto) 0.0 L, Baso % (Auto) 0.2, Neut # (Auto) 7.8, Lymph # (Auto) 1.0, [place] # (Auto) 0.5, Eos # (Auto) 0.0, Baso # (Auto) 0.0, Sodium 137, Potassium 4.4, Chloride 109 H, Carbon Dioxide 23, Anion Gap 9.4, BUN 14 D, Creatinine 1.10, Estimated Creat Clear 54, Estimated GFR 63, Est GFR ( Amer) 77 D, Glucose 115 H, Calcium 9.1 I & O for Labs for Last 24 Hours: Intake & Output 12/02/23 12/03/23 12/04/23 12/05/23 23:59 23:59 23:59 23:59 Intake Total 2015 945 / 945 Output Total 0 / 0 1650 / 1650 Balance 2015 -705 / -705 Weight 74.843 kg 78.925 kg 80.603 kg Cardiac: Present Reg Rate and Rhythm Comment:: Loud S2 appreciated on auscultation Assessment and Plan *Assessment and plan (1) BPH (benign prostatic hyperplasia): Status: Acute Qualifiers: Lower urinary tract symptom presence: unspecified whether lower urinary tract symptoms present Qualified Code(s): N40.0 - Benign prostatic hyperplasia without lower urinary tract symptoms Category: Medical Code(s): N40.0 - Benign prostatic hyperplasia without lower urinary tract symptoms (2) Hypertension: Status: Acute Category: Medical Code(s): I10 - Essential (primary) hypertension (3) JULIAN (acute kidney injury): Status: Acute Category: Medical Code(s): N17.9 - Acute kidney failure, unspecified (4) SBO (small bowel obstruction): Status: Acute Category: Medical Code(s): K56.609 - Unspecified intestinal obstruction, unspecified as to partial versus complete obstruction Plan This is an 88-year-old male that presents to the ED with abdominal pain and imaging identifies small bowel obstruction. Previous abdominal surgery 10 to 12 years ago, and right inguinal herniography noted. Patient had NG tube placed 12/05/2023 for management of small bowel obstruction. Problems addressed as follows: Small bowel obstruction ?12/05/2023 NG tube placed, appreciate surgery assistance. Continue n.p.o. status, maintenance IV fluids, bowel rest. CT abdomen/pelvis done at time of hospitalization small bowel obstruction. Lipase normal in ED, will recheck tomorrow. Trending bowel flatus and elimination. As needed antiemetics/pain meds. Chloraseptic [place] as needed for pain associated with NG tube. Loud second heart sound: ?12/04 Labs second heart sound noted on auscultation of patient. Will order echocardiogram to evaluate. Patient denies history of cardiovascular issues. Acute kidney injury IV fluid resuscitation Avoiding home MADELYN inhibitor therapy Trending electrolytes and creatinine Avoiding NSAIDs Hypertensive urgency ?12/04 continue home medications plus as needed IV hydralazine if needed. Disposition: ? 12/04 NG tube placed today for surgical consult. Patient on bowel rest for evaluation of small bowel obstruction. Patient not appropriate for hospital disposition. Hopefully of small bowel obstruction resolves with medical management, patient appropriate for hospital disposition within next 96 hours if okay with general surgery consulting.
--- NOTE | 2023-12-05 11:51 | CA_ITS ---
APPROVED REPORT EXAM: Comprehensive 2D, Doppler, and color-flow Echocardiogram Machine Tester: Tash Lopez RT(R) Ht: 6 ft 2 in Wt: 177lbs BSA: 2.06 BP: 191/78 mmHg Indications: murmur, HTN. 2D Dimensions LA Volume 48.40 mL LA Volume Index 23.50 mL/m2 (M/F) 16-34 M-Mode Dimensions RVDd 2.54 cm (0.9-2.6) LA Diam 2.98 cm (1.9-4.0) LVDd 4.01 cm (3.5-5.7) LVDs 2.61 cm (3.5-5.7) IVSd 0.86 cm (0.6-1.1) PWd 0.82 cm (0.6-1.1) EF (Teich) 64.80% FS 34.90% EDV (Teich) 70.40 mL ESV (Teich) 24.80 mL LV Diastology E Decel Time 150 (160-240 msec) E/A Ratio 0.6 Aortic Valve STONEY Index 1.48 cm2/m2 AoV Peak Iván. 198.0 (50-130 cm/s) AO Peak GR. 15.80 mmHg AO Mean GR. 7.70 (<5 mmHg) AO VTI 34.0 (18-25 cm) STONEY (VTI) 3.13 (2.5-4.5 cm2) Mitral Valve MV E Max Iván. 91.0 (40-130 cm/s) MV A Velocity 145.0 (40-130 cm/s) E/A Ratio 0.63 MV PHT 44.0 ms Left Ventricle The left ventricle is normal size. The left ventricular systolic function is normal. The left ventricular ejection fraction is within the normal range. There is increased LV wall thickness. There is normal LV segmental wall motion. The left ventricular diastolic function is normal. LVEF is 55%. Right Ventricle Right ventricle is mildly dilated. The right ventricular systolic function is normal. Atria The left atrium size is normal. The right atrium size is normal. There is no Doppler evidence of interatrial shunt. Aortic Valve The aortic valve is mildly thickened. Aortic sclerosis, but no aortic stenosis. Moderate aortic regurgitation. Mitral Valve The mitral valve leaflets are mildly thickened. No evidence of mitral valve stenosis. Trace mitral regurgitation. Tricuspid Valve The tricuspid valve leaflets are thin and pliable. Mild tricuspid regurgitation. RVSP is 25-30 mmHg. Pulmonic Valve The pulmonary valve is normal in structure. Trace pulmonic regurgitation. Great Vessels The aortic root is normal in size. The ascending aorta not well-visualized. IVC is normal in size and collapses >50% with inspiration. Pericardium There is no pericardial effusion. Other Information Study Quality: Technically Difficult Conclusion Technically difficult study due to poor acoustic windows. Normal biventricular systolic function. Mild RV dilation. Moderate AI. Electronically signed by : Caryl Ferrara MD 12/07/2023 02:56:28
[2023-12-05] MEDS: PHENOL THROAT SPRAY 177 ML BOTTLE MM (11:55)
[2023-12-05] MEDS: Dextrose 5 % and 0.9 % NaCl 1,000 ML 150 ML IV ×2 (12:03→19:33)
[2023-12-05] MEDS: SIMETHICONE 80MG CHEWABLE TABLET 160 MG PO ×2 (12:04→17:14)
[2023-12-05] MEDS: HYDRALAZINE 20MG/ML VIAL 10 MG IV (17:13)
--- NOTE | 2023-12-05 18:07 | PC.NURSE ---
pt called out and stated that he did not feel right. BP 164/74 HR 110 O2 98%. Temp 99.0 orally. No other complaints other than he just feels bad.
[2023-12-05] MEDS: FAMOTIDINE 20MG TABLET 20 MG PO (21:48)
[2023-12-05] MEDS: MELATONIN 5MG TABLET 5 MG PO (21:49)
[2023-12-05] MEDS: MORPHINE 2MG/ML SYRINGE 2 MG IV (21:49)
[2023-12-06] MEDS: Dextrose 5 % and 0.9 % NaCl 1,000 ML 150 ML IV ×2 (02:27→09:44)
--- NOTE | 2023-12-06 03:21 | XR_ITS ---
PROCEDURE INFORMATION: Exam: XR Abdomen Exam date and time: 12/06/2023 3:24 AM Age: 88 years old Clinical indication: Device placement; Gi device; Nasogastric tube; Additional info: Ng placement TECHNIQUE: Imaging protocol: Radiologic exam of the abdomen. Views: Frontal supine view of the abdomen. 1 View. COMPARISON: CR XR KUB 12/05/2023 10:51 AM FINDINGS: Tubes, catheters and devices: NG tube in good position. Gastrointestinal tract: Air is seen in both the large and small bowel decreased somewhat since the prior examination. Bones/joints: Unremarkable. IMPRESSION: Decreasing small bowel air may represent resolving obstruction.
--- NOTE | 2023-12-06 03:40 | PC.NURSE ---
ng tube got pulled out as pt was being escorted to the bathroom by staff. replaced #16 fr to right nare, 62cm to tip of right nare, awaiting confirmation from kub to resume decompression. pt denies nausea, abd decreased in distension, softer, hypoactive bowel sounds but present
[2023-12-06 04:00] VITALS: BP 146/75; PULSE 98; RESP 16; TEMP 36.9; O2SAT 93; BMI 22.8
--- NOTE | 2023-12-06 07:00 | XR_ITS ---
FINAL REPORT CLINICAL HISTORY: BOWEL OBSTRUCTION COMPARISON: 12/06/2023 FINDINGS: A PA view of the chest was obtained. The cardiac and mediastinal silhouettes are within normal limits. There is bibasilar atelectasis. There is no free air beneath the diaphragm. NG tube is in the stomach. There continues to be distention of small-bowel loops in the upper abdomen with relative paucity of gas in the pelvis. No acute osseous abnormality is identified. IMPRESSION: Persistent small bowel dilatation concerning for small bowel obstruction. Reviewed, Interpreted and Dictated by Maria Elena Garza MD Transcribed by Halie Escalante Authenticated and . [facility]
[2023-12-06 07:13] LABS: Anion Gap 7.6 mEq/L (5-15); Blood Urea Nitrogen 13 mg/dl (9-20); Carbon Dioxide 25 mmol/L (22.0-30.0); Chloride 110 mmol/L (98-107); Creatinine Clearance Estimated 59 mL/min (50-200); Estimated Glomerular Filt Rate 71 ml/min (>60); GFR (African American) 86 ML/MIN (>60); Glucose 138 mg/dl (74-100); Potassium 3.6 mmoL/L (3.5-5.1); Sodium 139 mmol/L (136-145)
[2023-12-06] MEDS: SIMETHICONE 80MG CHEWABLE TABLET 160 MG PO (07:15)
[2023-12-06 07:19] LABS: Basophils % 0.3 % (0.1-2.0); Eosinophils % 0.5 % (0.1-12.0); Hematocrit 33.9 % (42.0-52.0); Hemoglobin 11.1 g/dL (14.1-18.0); Lymphocytes # 1.1 K/mm3 (0.7-4.5); Lymphocytes % 14.6 % (10-50); Mean Corpuscular HGB Conc 32.7 g/dL (31.8-35.4); Mean Corpuscular Hemoglobin 34.9 pg (27.0-31.2); Mean Corpuscular Volume 106.9 fl (80-94); Mean Platelet Volume 8.7 fl (7.4-10.4); Monocytes # 0.6 K/mm3 (0.1-1.0); Neutrophils # 5.7 K/mm3 (1.8-7.8); Neutrophils % 76.8 % (37.0-80.0); Platelet Count 206 K/mm3 (142-424); Red Blood Count 3.17 M/mm3 (4.60-6.20); Red Cell Distribution Width 13.6 % (11.5-17.5); White Blood Count 7.4 K/mm3 (4.8-10.8)
--- NOTE | 2023-12-06 07:20 | FL_ITS ---
FINAL REPORT TECHNIQUE: Contrast material was administered through an indwelling NG tube. Images were obtained over 6 hours. CLINICAL HISTORY: bowel obstruction COMPARISON: None. FINDINGS: There are dilated small bowel loops. Contrast has yet to move distal to proximal small bowel loops at 6 hours. More delayed imaging was not included with this exam. IMPRESSION: Small bowel dilatation with delayed transit of oral contrast material. No images for this exam were provided after 6 hours of ingestion. Findings are most concerning for small bowel obstruction. Please note that on an acute abdominal series performed this morning, there was no residual contrast. It may have been suctioned through the NG tube. Authenticated and ERN
[2023-12-06 07:37] LABS: Magnesium 1.7 mg/dl (1.6-2.3)
[2023-12-06 08:00] VITALS: BP 192/74; PULSE 92; RESP 16; TEMP 36.7; O2SAT 94; O2SAT 96
--- NOTE | 2023-12-06 08:00 | EXP.SURG.PN ---
Subjective Narrative: Patient had nasogastric tube placed yesterday. Had 2 L output and he states that he felt better. He did state that he passed some gas on Tuesday. Nasogastric tube came out early this morning and he had recurrent symptoms. It was replaced. KUB shows good position with decreased bowel gas. Exam Data for Last 24 hours Vital signs and Labs for Last 24 Hours: Temp Pulse Resp BP Pulse Ox O2 Del Method O2 Flow Rate 98.5 F 98 H 16 146/75 H 93 L Room Air 3 12/06/23 04:00 12/06/23 04:00 12/06/23 04:00 12/06/23 04:00 12/06/23 04:00 12/06/23 06:51 12/03/23 18:15 Laboratory Results - last 24 hr 12/06/23 06:19: WBC 7.4, RBC 3.17 L, Hgb 11.1 L, Hct 33.9 L, MCV 106.9 H, MCH 34.9 H, MCHC 32.7, RDW 13.6, Plt Count 206, MPV 8.7, Neut % (Auto) 76.8, Lymph % (Auto) 14.6, [place] % (Auto) 8.0, Eos % (Auto) 0.5, Baso % (Auto) 0.3, Neut # (Auto) 5.7, Lymph # (Auto) 1.1, [place] # (Auto) 0.6, Eos # (Auto) 0.0, Baso # (Auto) 0.0, Sodium 139, Potassium 3.6, Chloride 110 H, Carbon Dioxide 25, Anion Gap 7.6, BUN 13, Creatinine 1.00, Estimated Creat Clear 59, Estimated GFR 71, Est GFR ( Amer) 86, Glucose 138 H, Calcium 9.0 I & O for Last 24 hours: Intake & Output 12/03/23 12/04/23 12/05/23 12/06/23 11:59 11:59 11:59 11:59 Intake Total 1416 / 1416 1545 / 1545 3187 / 3187 Output Total 0 / 0 1650 / 1650 800 / 800 Balance 1416 / 1416 -105 / -105 2387 / 2387 Weight 174 lb 177 lb 11.2 oz 177 lb 11.187 oz *Routine Abdominal Exam Abdominal: Present distended Progress Note: A&P Assessment and plan (1) BPH (benign prostatic hyperplasia): Status: Acute (2) Hypertension: Status: Acute (3) JULIAN (acute kidney injury): Status: Acute (4) SBO (small bowel obstruction): Status: Acute Assessment and plan: Even though x-ray reportedly shows some bowel gas improvement clinically patient has bowel obstruction and seems to be dependent on nasogastric decompression. There does appear to be possibly some colon gas present on his x-ray. I will see if he can undergo small bowel follow-through for diagnostic and potentially therapeutic purposes. Of course of this shows obstruction and/or if he develops significant recurrent symptoms with administration of contrast operative intervention would obviously be indicated.
[2023-12-06] MEDS: HYDRALAZINE 20MG/ML VIAL 10 MG IV ×2 (08:03→20:06)
[2023-12-06] MEDS: PANTOPRAZOLE 40MG TABLET 40 MG PO (08:03)
[2023-12-06] MEDS: HEPARIN SODIUM 5,000 UNIT/ML VIAL 5000 UNIT SQ ×2 (08:03→20:54)
[2023-12-06] MEDS: AMLODIPINE 5MG TABLET 5 MG PO (08:03)
[2023-12-06] MEDS: FINASTERIDE 5MG TABLET 5 MG PO (08:03)
[2023-12-06] MEDS: MORPHINE 2MG/ML SYRINGE 2 MG IV (09:44)
[2023-12-06] MEDS: ONDANSETRON 4MG/2ML VIAL 4 MG IV (09:44)
[2023-12-06] MEDS: HYDROMORPHONE 2MG/ML SYRINGE 0.5 MG IV (11:37)
[2023-12-06] MEDS: DIATRIZOATE MEGLUMINE(GASTROGRAFIN) 66%-10% 120ML 120 ML PO (12:41)
[2023-12-06 13:32] VITALS: BMI 22.6
--- NOTE | 2023-12-06 14:35 | EXP.ACUTE.PN ---
Subjective *Date: 12/06/23 *Time: 15:08 Interval history: Still complaining of low this morning. No latasha emesis. Does have some nausea. Status post contrast infusion by surgery, performing small bowel follow-through. No bowel movements or gas Medical Exam Vital signs and Labs for Last 24 Hours: Vital Signs Temp Pulse Pulse Resp BP Pulse Ox O2 Del Method 12/06/23 13:44 Room Air 12/06/23 12:39 Room Air 12/06/23 10:20 Room Air 12/06/23 08:00 98.0 F 92 H 16 192/74 H 96 Room Air 12/06/23 08:00 Room Air 12/06/23 06:51 Room Air 12/06/23 05:00 Room Air 12/06/23 04:00 98.5 F 98 H 16 146/75 H 93 L Room Air 12/06/23 03:00 Room Air 12/06/23 01:00 Room Air 12/05/23 23:00 Room Air 12/05/23 21:59 108 H 136/63 Room Air 12/05/23 21:00 Room Air 12/05/23 19:57 98.5 F 110 H 16 165/64 H 95 Room Air 12/05/23 19:39 100 H Room Air 12/05/23 19:00 Room Air 12/05/23 17:13 184/62 H 12/05/23 17:00 Room Air 12/05/23 16:00 Room Air 12/05/23 16:00 98.2 F 108 H 20 171/70 H 95 Room Air 12/05/23 14:52 Room Air Intake and Output 12/05/23 12/06/23 12/06/23 23:59 07:59 15:59 Intake Total 1678 / 2623 1509 / 2259 750 / 2259 Output Total 450 / 2100 350 / 350 Balance 1228 / 523 1159 / 1909 750 / 1909 Intake: Intake, Total IV Amount 1678 / 2623 1509 / 2259 750 / 2259 0.9 % Sodium Chloride 1000ML 1, 1509 / 1509 000 ml @ 100 mls/hr IV .Q10H [facility] Rx#:[id number] Dextrose 5 % and 0.9 % NaCl 1, 1678 / 1678 750 / 750 000 ml @ 150 mls/hr IV .Q6H40M [facility] Rx#:[id number] Output: Output, Urine Amount 0 / 0 0 / 0 Output, Gastric Drainage Amount 450 / 1999 350 / 350 Right Nare 450 / 1999 350 / 350 Other: Number of Voids 0 Number of Unmeasured Voids 1 Weight 80.603 kg 80 kg Patient Weight 12/06/23 23:59 Weight 80 kg Laboratory Results - last 24 hr 12/06/23 06:19: WBC 7.4, RBC 3.17 L, Hgb 11.1 L, Hct 33.9 L, MCV 106.9 H, MCH 34.9 H, MCHC 32.7, RDW 13.6, Plt Count 206, MPV 8.7, Neut % (Auto) 76.8, Lymph % (Auto) 14.6, [place] % (Auto) 8.0, Eos % (Auto) 0.5, Baso % (Auto) 0.3, Neut # (Auto) 5.7, Lymph # (Auto) 1.1, [place] # (Auto) 0.6, Eos # (Auto) 0.0, Baso # (Auto) 0.0, Sodium 139, Potassium 3.6, Chloride 110 H, Carbon Dioxide 25, Anion Gap 7.6, BUN 13, Creatinine 1.00, Estimated Creat Clear 59, Estimated GFR 71, Est GFR ( Amer) 86, Glucose 138 H, Calcium 9.0, Magnesium 1.7 I & O for Labs for Last 24 Hours: Intake & Output 12/03/23 12/04/23 12/05/23 12/06/23 23:59 23:59 23:59 23:59 Intake Total 2015 2623 / 2623 2259 / 225 Output Total 0 / 0 2099 350 / 350 Balance 2015 523 / 523 1909 / 1909 Weight 74.843 kg 78.925 kg 80.603 kg 80 kg Constitutional: Present no acute distress, average body habitus, chronically ill appearing and cooperative Head: Present atraumatic and normocephalic ENT: Present normal exam Comment:: NG in left nare Respiratory: Present normal respiratory effort; Absent respiratory distress, rhonchi, wheezes or crackles Cardiac: Present Reg Rate and Rhythm GI: Present soft, distention, tenderness (Nonfocal) and diminished bowel sounds Extremities: Present normal inspection and full ROM Skin: Present intact; Absent erythema Neuro: Present Grossly Intact, alert, awake, oriented x 3 and moves all extremities Assessment and Plan *Assessment and plan (1) SBO (small bowel obstruction): Status: Acute Category: Medical Code(s): K56.609 - Unspecified intestinal obstruction, unspecified as to partial versus complete obstruction (2) BPH (benign prostatic hyperplasia): Status: Acute Qualifiers: Lower urinary tract symptom presence: unspecified whether lower urinary tract symptoms present Qualified Code(s): N40.0 - Benign prostatic hyperplasia without lower urinary tract symptoms Category: Medical Code(s): N40.0 - Benign prostatic hyperplasia without lower urinary tract symptoms (3) Hypertension: Status: Acute Category: Medical Code(s): I10 - Essential (primary) hypertension (4) JULIAN (acute kidney injury): Status: Acute Category: Medical Code(s): N17.9 - Acute kidney failure, unspecified Plan This is an 88-year-old male that presents to the ED with abdominal pain and imaging identifies small bowel obstruction. Previous abdominal surgery 10 to 12 years ago, and right inguinal herniography noted. Patient had NG tube placed 12/05/2023 for management of small bowel obstruction. Surgery consulted and assisting with care. Continues to require inpatient management. No bowel movements as of yet. Problems addressed as follows: Small bowel obstruction ?12/05/2023 NG tube placed -Continues to have nausea. No bowel movements. Discussed case with surgery, will perform small bowel follow-through. Continue bowel rest with n.p.o. Pending response clinically over the next 24 hours, will reevaluate need for possible surgery. -Reglan 5 mg as needed every 6 hours for nausea and to promote gastric motility -Per my review of images of abdomen, continues to have significant contrast load in stomach 6 hours after instillation. Appears to have significant ileus. Acute kidney injury Appears to be resolved. BUN 13, creatinine 1.0. Potassium 3.6, magnesium 1.7. No replacement today. Will replace as necessary -Repeat CBC, CMP, magnesium ordered for the morning. Hypertensive urgency - Amlodipine 5 mg daily -Hydralazine 10 mg IV every 4 hours or labetalol 10 mg IV as needed every 4 hours for blood pressure greater than 180 systolic N.p.o. Full Code Pantoprazole 40 mg IV daily Heparin 5000 units SQ twice daily
--- NOTE | 2023-12-06 15:46 | PC.NURSE ---
Aox4, up with assist times 1, 90's on RA, 20G R AC SL, 20G R FA SL, pain meds received twice iv on my shift.
[2023-12-06 16:00] VITALS: BP 171/68; PULSE 103; RESP 18; TEMP 36.7; O2SAT 94
[2023-12-06 20:00] VITALS: BP 191/82; PULSE 109; RESP 18; TEMP 37.1; O2SAT 94
[2023-12-06] MEDS: SODIUM CHLORIDE 0.9% 10ML VIAL 10 ML IV (20:54)
[2023-12-06] MEDS: FAMOTIDINE 20MG TABLET 20 MG PO (20:54)
[2023-12-06] MEDS: MELATONIN 5MG TABLET 5 MG PO (20:54)
[2023-12-06] MEDS: PANTOPRAZOLE 40MG VIAL 40 MG IV (20:54)
[2023-12-07] VITALS: BP 157/70; PULSE 103; RESP 16; TEMP 36.9; O2SAT 96
[2023-12-07] MEDS: SIMETHICONE 80MG CHEWABLE TABLET 160 MG PO ×5 (00:14→23:35)
[2023-12-07 04:00] VITALS: BP 175/66; PULSE 97; RESP 16; TEMP 36.9; O2SAT 94; BMI 21.4
[2023-12-07] MEDS: HYDRALAZINE 20MG/ML VIAL 10 MG IV (04:55)
--- NOTE | 2023-12-07 05:21 | PC.NURSE ---
Pt has rested on and off through the night. He has been up to BR several times this shift. Pt has been wetting mouth with ice chips and complains of sore throat despite using chloraseptic spray. NG has remained to low suction and has drained approx 1000 ml of dark green fluid. pt has denied abdominal pain or N/V this shift. He is not passing flatus and BS very hypoactive. Pts BP has been elevated X 2 different occasions this shift requiring prn hydralazine.
[2023-12-07] MEDS: HYDROMORPHONE 2MG/ML SYRINGE 0.5 MG IV (06:19)
[2023-12-07 06:40] LABS: Basophils % 0.4 % (0.1-2.0); Eosinophils # 0.1 K/mm3 (0.0-0.4); Eosinophils % 0.7 % (0.1-12.0); Hematocrit 35.5 % (42.0-52.0); Lymphocytes # 1.7 K/mm3 (0.7-4.5); Mean Corpuscular HGB Conc 33.8 g/dL (31.8-35.4); Mean Corpuscular Hemoglobin 35.5 pg (27.0-31.2); Mean Corpuscular Volume 105.3 fl (80-94); Mean Platelet Volume 8.5 fl (7.4-10.4); Monocytes # 0.5 K/mm3 (0.1-1.0); Neutrophils # 4.4 K/mm3 (1.8-7.8); Neutrophils % 65.8 % (37.0-80.0); Platelet Count 226 K/mm3 (142-424); Red Blood Count 3.37 M/mm3 (4.60-6.20); Red Cell Distribution Width 14.1 % (11.5-17.5); White Blood Count 6.7 K/mm3 (4.8-10.8)
[2023-12-07 06:54] LABS: Alanine Aminotransferase 25 U/L (12-78); Albumin Level 3.9 g/dl (3.5-5.0); Albumin/Globulin Ratio 1.5 (1.1-1.8); Alkaline Phosphatase 75 U/L (38-126); Anion Gap 12.5 mEq/L (5-15); Aspartate Amino Transferase 39 U/L (17-59); Bilirubin,Total 0.7 mg/dl (0.2-1.3); Blood Urea Nitrogen 16 mg/dl (9-20); Calcium 9.8 mg/dl (8.4-10.2); Carbon Dioxide 23 mmol/L (22.0-30.0); Chloride 111 mmol/L (98-107); Creatinine Clearance Estimated 51 mL/min (50-200); Estimated Glomerular Filt Rate 63 ml/min (>60); GFR (African American) 77 ML/MIN (>60); Globulin 2.6 g/dL (1.3-3.2); Glucose 107 mg/dl (74-100); Magnesium 1.8 mg/dl (1.6-2.3); Potassium 3.5 mmoL/L (3.5-5.1); Sodium 143 mmol/L (136-145); Total Protein,Serum 6.5 g/dl (6.3-8.2)
[2023-12-07 08:00] VITALS: BP 168/70; PULSE 107; RESP 20; TEMP 36.8; O2SAT 93
--- NOTE | 2023-12-07 08:39 | EXP.SURG.PN ---
Subjective Patient reports: no new complaints, no flatus and no bowel movement Narrative: He states that he feels fine . His only concern is irritation from the nasogastric tube. Exam Data for Last 24 hours Vital signs and Labs for Last 24 Hours: Temp Pulse Resp BP Pulse Ox O2 Del Method O2 Flow Rate 98.2 F 107 H 20 168/70 H 93 L Room Air 96 12/07/23 08:00 12/07/23 08:00 12/07/23 08:00 12/07/23 08:00 12/07/23 08:00 12/07/23 08:00 12/07/23 00:00 Laboratory Results - last 24 hr 12/07/23 06:16: WBC 6.7, RBC 3.37 L, Hgb 12.0 L, Hct 35.5 L, MCV 105.3 H, MCH 35.5 H, MCHC 33.8, RDW 14.1, Plt Count 226, MPV 8.5, Neut % (Auto) 65.8, Lymph % (Auto) 25.0, [place] % (Auto) 8.0, Eos % (Auto) 0.7, Baso % (Auto) 0.4, Neut # (Auto) 4.4, Lymph # (Auto) 1.7, [place] # (Auto) 0.5, Eos # (Auto) 0.1, Baso # (Auto) 0.0, Sodium 143, Potassium 3.5, Chloride 111 H, Carbon Dioxide 23, Anion Gap 12.5, BUN 16, Creatinine 1.10, Estimated Creat Clear 51, Estimated GFR 63, Est GFR ( Amer) 77, Glucose 107 H D, Calcium 9.8, Magnesium 1.8, Total Bilirubin 0.7, AST 39, ALT 25, Alkaline Phosphatase 75, Total Protein 6.5, Albumin 3.9, Globulin 2.6, Albumin/Globulin Ratio 1.5 I & O for Last 24 hours: Intake & Output 12/04/23 12/05/23 12/06/23 12/07/23 11:59 11:59 11:59 11:59 Intake Total 1416 / 1416 1545 / 1545 3187 / 3187 750 / 750 Output Total 0 / 0 1650 / 1650 800 / 800 2300 / 2300 Balance 1416 / 1416 -105 / -105 2387 / 2387 -1550 / -1550 Weight 174 lb 177 lb 11.2 oz 177 lb 11.187 oz 167 lb 6.4 oz Constitutional Constitutional: no acute distress *Routine Respiratory Exam Respiratory: Absent respiratory distress *Routine Abdominal Exam Abdominal: Present soft Comments: Currently with no significant distention (none to minimal) Progress Note: A&P Assessment and plan (1) SBO (small bowel obstruction): Status: Acute Assessment and plan: The patient currently is without significant distention and feels fine ; however, he seemingly remains NG dependent . Small bowel follow-through currently underway with preliminary films revealing profound ileus versus possible obstruction. Follow-up additional films Continue nasogastric decompression for now
[2023-12-07] MEDS: FINASTERIDE 5MG TABLET 5 MG PO (08:53)
[2023-12-07] MEDS: AMLODIPINE 5MG TABLET 5 MG PO (08:53)
[2023-12-07] MEDS: HEPARIN SODIUM 5,000 UNIT/ML VIAL 5000 UNIT SQ ×2 (08:53→20:19)
--- NOTE | 2023-12-07 09:13 | PC.NURSE ---
pt ambulated multiple times up and down the hallway this morning independently.
--- NOTE | 2023-12-07 12:33 | P.PN_ITS ---
Subjective *Date: 12/07/23 *Time: 12:36 Interval history: Feeling somewhat better today. Still no bowel movement. Ambulating independently. On room air. NG remains in place Medical Exam Vital signs and Labs for Last 24 Hours: Vital Signs Temp Pulse Resp BP Pulse Ox O2 Del Method O2 Flow Rate 12/07/23 11:00 Room Air 12/07/23 09:00 Room Air 12/07/23 08:00 Room Air 12/07/23 08:00 98.2 F 107 H 20 168/70 H 93 L Room Air 12/07/23 06:37 Room Air 12/07/23 05:00 Room Air 12/07/23 04:00 98.4 F 97 H 16 175/66 H 94 L Room Air 12/07/23 02:54 Room Air 12/07/23 01:00 Room Air 12/07/23 00:00 Room Air 96 12/07/23 00:00 98.5 F 103 H 16 157/70 H 96 Room Air 12/06/23 23:00 Room Air 12/06/23 21:00 Room Air 12/06/23 20:00 94 L Room Air 12/06/23 20:00 98.7 F 109 H 18 191/82 H 94 L Room Air 12/06/23 18:14 Room Air 12/06/23 16:36 Room Air 12/06/23 16:00 98.0 F 103 H 18 171/68 H 94 L Room Air 12/06/23 13:44 Room Air 12/06/23 12:39 Room Air Intake and Output 12/06/23 12/07/23 12/07/23 23:59 07:59 15:59 Output Total 1000 / 2150 1300 / 1300 Balance -1000 / 109 -1300 / -1300 Output: Output, Urine Amount 200 / 200 200 / 200 Output, Gastric Drainage Amount 800 / 1950 1100 / 1100 Right Nare 800 / 1950 1100 / 1100 Other: Number of Voids 2 Number of Unmeasured Voids 1 1 Weight 75.931 kg Patient Weight 12/07/23 23:59 Weight 75.931 kg Laboratory Results - last 24 hr 12/07/23 06:16: WBC 6.7, RBC 3.37 L, Hgb 12.0 L, Hct 35.5 L, MCV 105.3 H, MCH 35.5 H, MCHC 33.8, RDW 14.1, Plt Count 226, MPV 8.5, Neut % (Auto) 65.8, Lymph % (Auto) 25.0, [place] % (Auto) 8.0, Eos % (Auto) 0.7, Baso % (Auto) 0.4, Neut # (Auto) 4.4, Lymph # (Auto) 1.7, [place] # (Auto) 0.5, Eos # (Auto) 0.1, Baso # (Auto) 0.0, Sodium 143, Potassium 3.5, Chloride 111 H, Carbon Dioxide 23, Anion Gap 12.5, BUN 16, Creatinine 1.10, Estimated Creat Clear 51, Estimated GFR 63, Est GFR ( Amer) 77, Glucose 107 H D, Calcium 9.8, Magnesium 1.8, Total Bilirubin 0.7, AST 39, ALT 25, Alkaline Phosphatase 75, Total Protein 6.5, Albumin 3.9, Globulin 2.6, Albumin/Globulin Ratio 1.5 I & O for Labs for Last 24 Hours: Intake & Output 12/04/23 12/05/23 12/06/23 12/07/23 23:59 23:59 23:59 23:59 Intake Total 2015 2623 / 2623 2259 / 2259 Output Total 0 / 0 2099 / 2099 1350 / 2150 1300 / 1300 Balance 2015 523 / 523 909 / 109 -1300 / -1300 Weight 78.925 kg 80.603 kg 80 kg 75.931 kg Constitutional: Present no acute distress, average body habitus, chronically ill appearing and cooperative Head: Present atraumatic and normocephalic ENT: Present normal exam Comment:: NG in left nare Respiratory: Present normal respiratory effort; Absent respiratory distress, rhonchi, wheezes or crackles Cardiac: Present Reg Rate and Rhythm GI: Present soft, distention, tenderness (Nonfocal) and diminished bowel sounds Extremities: Present normal inspection and full ROM Skin: Present intact; Absent erythema Neuro: Present Grossly Intact, alert, awake, oriented x 3 and moves all ex tremities Assessment and Plan *Assessment and plan (1) SBO (small bowel obstruction): Status: Acute Category: Medical Code(s): K56.609 - Unspecified intestinal obstruction, unspecified as to partial versus complete obstruction (2) BPH (benign prostatic hyperplasia): Status: Acute Qualifiers: Lower urinary tract symptom presence: unspecified whether lower urinary tract symptoms present Qualified Code(s): N40.0 - Benign prostatic hyperplasia without lower urinary tract symptoms Category: Medical Code(s): N40.0 - Benign prostatic hyperplasia without lower urinary tract symptoms (3) Hypertension: Status: Acute Category: Medical Code(s): I10 - Essential (primary) hypertension (4) JULIAN (acute kidney injury): Status: Acute Category: Medical Code(s): N17.9 - Acute kidney failure, unspecified Plan This is an 88-year-old male that presents to the ED with abdominal pain and imaging identifies small bowel obstruction. Previous abdominal surgery 10 to 12 years ago, and right inguinal herniography noted. Patient had NG tube placed 12/05/2023 for management of small bowel obstruction. Surgery consulted and assisting with care. Continues to require inpatient management. No bowel movements as of yet. Problems addressed as follows: Small bowel obstruction ?12/05/2023 NG tube placed -No nausea, feeling better but still having ileus versus obstruction. Per my review of KUB today, concern for obstruction. Discussed case with surgery, continue with serial abdominal imaging for small bowel follow-through with contrast placed yesterday. NG remains in place. Pending response clinically over the next 24 hours, will reevaluate need for possible surgery. -Reglan 5 mg as needed every 6 hours for nausea and to promote gastric motility Acute kidney injury Appears to be resolved. BUN 12, creatinine 0.7. Magnesium 2.0. No replacement today. Will replace as necessary -Repeat CBC, CMP, magnesium ordered for the morning. Hypertensive urgency - Amlodipine 5 mg daily -Hydralazine 10 mg IV every 4 hours or labetalol 10 mg IV as needed every 4 hours for blood pressure greater than 180 systolic N.p.o. Full Code Pantoprazole 40 mg IV daily Heparin 5000 units SQ twice daily
--- NOTE | 2023-12-07 14:33 | XR_ITS ---
FINAL REPORT CLINICAL HISTORY: BOWEL OBSTRUCTION..24 sbft film from yesterday FINDINGS: A PA view of the chest was obtained. The cardiac and mediastinal silhouettes are within normal limits. NG tube terminates below the diaphragm. There is slight worsening of the bibasilar atelectasis and small pleural effusions. There is no free air beneath the diaphragm. There continues to be distension of small-bowel loops. No significant change since previous. There are no pathologic calcifications. No acute osseous abnormalities identified. IMPRESSION: Small-bowel obstruction. Worsening bibasilar atelectasis and small effusions. Reviewed, Interpreted and Dictated by Maria Elena Garza MD Transcribed by Halie Escalante Authenticated and [facility]
[2023-12-07 16:00] VITALS: BP 178/78; PULSE 115; RESP 18; TEMP 36.7; O2SAT 98
[2023-12-07] MEDS: SENNOSIDES 8.6MG/DOCUSATE 50MG TABLET 2 TAB PO (16:27)
[2023-12-07] MEDS: MINERAL OIL ENEMA 133ML 133 ML RC (16:28)
--- NOTE | 2023-12-07 18:25 | PC.NURSE ---
pt has done well today and states he feels much better than yesterday. 800ml output from ng midshift. pt has walked multiple times around the unit. encouraged to chew chewing gum to stimulate bowels, provided pt with gum and chapstick. per dr carrera, okay with sips and chips and a glass of sweet tea. ng to lws. tube was clamped for a couple of hrs due to meds and walking around unit. no c/o of n/v/p. pt did say he takes 3 stool softeners every day and has for the last 40 years, notified . pt has been up to chair at bs, cb and personal items within reach
[2023-12-07 20:00] VITALS: BP 165/69; PULSE 109; RESP 18; TEMP 36.7; O2SAT 94
[2023-12-07] MEDS: FAMOTIDINE 20MG TABLET 20 MG PO (20:19)
[2023-12-07] MEDS: SODIUM CHLORIDE 0.9% 10ML VIAL 10 ML IV (20:20)
[2023-12-07] MEDS: PANTOPRAZOLE 40MG VIAL 40 MG IV (20:20)
[2023-12-07] MEDS: MELATONIN 5MG TABLET 5 MG PO (21:19)
[2023-12-07 22:00] VITALS: BP 163/73; PULSE 98
[2023-12-08] VITALS (21 sets, daily range): BP systolic 121–180; BP diastolic 51–90; PULSE 88–118; RESP 16–18; TEMP 36.4–43; O2SAT 88–99; BMI 20.7
--- NOTE | 2023-12-08 05:35 | PC.NURSE ---
pt cont to have drainage from ng tube. total of 1l returned. pt denies n/v or abd pain, abd soft but round with hypoactive bs, pt reports he passed some flatus. pt sonny ice chips and sips. pt ambulating well
--- NOTE | 2023-12-08 06:00 | XR_ITS ---
FINAL REPORT CLINICAL HISTORY: sbo versus profound ileus COMPARISON: 12/07/2023 FINDINGS: A PA view of the chest was obtained. The cardiac and mediastinal silhouettes are within normal limits. An NG tube is present in the stomach. There are stable foci of bibasilar atelectasis and small bilateral pleural effusions. No radiographic evidence of free air is seen. Upright and supine views of the abdomen reveal dilated proximal small bowel loops, up to 4.5 cm in diameter, not significantly changed since the prior exam of 12/06. Some stool appears to be present in the colon, but no significant change from yesterday's exam is seen. There are no pathologic calcifications. No acute osseous abnormalities identified. IMPRESSION: Dilated proximal small bowel loops remain present, not significantly changed since the prior exam of 717. Bibasilar atelectasis is present with small bilateral pleural effusions. Reviewed, Interpreted and Dictated by Maria Elena Garza MD Transcribed by Ana Lofton Authenticated and [facility]
[2023-12-08] MEDS: SIMETHICONE 80MG CHEWABLE TABLET 160 MG PO ×2 (06:43→23:36)
[2023-12-08 07:03] LABS: Basophils % 0.7 % (0.1-2.0); Eosinophils % 0.6 % (0.1-12.0); Hematocrit 32.6 % (42.0-52.0); Lymphocytes # 1.6 K/mm3 (0.7-4.5); Lymphocytes % 28.9 % (10-50); Mean Corpuscular HGB Conc 33.7 g/dL (31.8-35.4); Mean Corpuscular Hemoglobin 35.4 pg (27.0-31.2); Mean Platelet Volume 8.5 fl (7.4-10.4); Monocytes # 0.5 K/mm3 (0.1-1.0); Monocytes % 9.7 % (1.7-9.3); Neutrophils # 3.2 K/mm3 (1.8-7.8); Neutrophils % 60.1 % (37.0-80.0); Platelet Count 226 K/mm3 (142-424); Red Blood Count 3.11 M/mm3 (4.60-6.20); Red Cell Distribution Width 13.8 % (11.5-17.5); White Blood Count 5.4 K/mm3 (4.8-10.8)
[2023-12-08 07:05] LABS: Alanine Aminotransferase 25 U/L (12-78); Albumin Level 3.7 g/dl (3.5-5.0); Albumin/Globulin Ratio 1.4 (1.1-1.8); Alkaline Phosphatase 67 U/L (38-126); Anion Gap 9.2 mEq/L (5-15); Aspartate Amino Transferase 32 U/L (17-59); Bilirubin,Total 0.7 mg/dl (0.2-1.3); Blood Urea Nitrogen 22 mg/dl (9-20); Calcium 9.5 mg/dl (8.4-10.2); Carbon Dioxide 26 mmol/L (22.0-30.0); Chloride 110 mmol/L (98-107); Creatinine Clearance Estimated 54 mL/min (50-200); Estimated Glomerular Filt Rate 71 ml/min (>60); GFR (African American) 86 ML/MIN (>60); Globulin 2.6 g/dL (1.3-3.2); Glucose 98 mg/dl (74-100); Potassium 3.2 mmoL/L (3.5-5.1); Sodium 142 mmol/L (136-145); Total Protein,Serum 6.3 g/dl (6.3-8.2)
--- NOTE | 2023-12-08 07:39 | P.PN_ITS ---
Subjective *Date: 12/08/23 *Time: 17:42 Interval history: Continues to not have bowel movements. Hypoactive bowel sounds on exam. Abdominal imaging with no improvement if not slight worsening in obstruction. Significant output per NG. No nausea or vomiting as long as stomach is decompr essed from NG to suction. Afebrile. On room air. Medical Exam Vital signs and Labs for Last 24 Hours: Vital Signs Temp Pulse Resp BP Pulse Ox O2 Del Method 12/08/23 06:54 Room Air 12/08/23 05:00 Room Air 12/08/23 04:00 98.4 F 100 H 18 163/89 H 94 L Room Air 12/08/23 03:00 Room Air 12/08/23 01:00 Room Air 12/07/23 23:00 Room Air 12/07/23 22:00 98 H 163/73 H 12/07/23 21:00 Room Air 12/07/23 20:00 Room Air 12/07/23 20:00 98.1 F 109 H 18 165/69 H 94 L Room Air 12/07/23 18:06 Room Air 12/07/23 17:00 Room Air 12/07/23 16:00 98.1 F 115 H 18 178/78 H 98 Room Air 12/07/23 15:00 Room Air 12/07/23 13:00 Room Air 12/07/23 11:00 Room Air 12/07/23 09:00 Room Air 12/07/23 08:00 Room Air 12/07/23 08:00 98.2 F 107 H 20 168/70 H 93 L Room Air Intake and Output 12/07/23 12/07/23 12/08/23 15:59 23:59 07:59 Output Total 1350 / 2650 800 / 800 Balance -1350 / -2650 -800 / -800 Output: Output, Urine Amount 0 / 200 0 / 0 Output, Gastric Drainage Amount 1350 / 2450 800 / 800 Right Nare 1350 / 2450 800 / 800 Other: Number of Unmeasured Voids 1 1 Weight 73.142 kg Patient Weight 12/08/23 23:59 Weight 73.142 kg Laboratory Results - last 24 hr 12/08/23 06:26: WBC 5.4, RBC 3.11 L, Hgb 11.0 L, Hct 32.6 L, MCV 105.0 H, MCH 35.4 H, MCHC 33.7, RDW 13.8, Plt Count 226, MPV 8.5, Neut % (Auto) 60.1, Lymph % (Auto) 28.9, [place] % (Auto) 9.7 H, Eos % (Auto) 0.6, Baso % (Auto) 0.7, Neut # (Auto) 3.2, Lymph # (Auto) 1.6, [place] # (Auto) 0.5, Eos # (Auto) 0.0, Baso # (Auto) 0.0, Sodium 142, Potassium 3.2 L, Chloride 110 H, Carbon Dioxide 26, Anion Gap 9.2, BUN 22 H D, Creatinine 1.00, Estimated Creat Clear 54, Estimated GFR 71, Est GFR ( Amer) 86, Glucose 98, Calcium 9.5, Total Bilirubin 0.7, AST 32, ALT 25, Alkaline Phosphatase 67, Total Protein 6.3, Albumin 3.7, Globulin 2.6, Albumin/Globulin Ratio 1.4 I & O for Labs for Last 24 Hours: Intake & Output 12/05/23 12/06/23 12/07/23 12/08/23 23:59 23:59 23:59 23:59 Intake Total 2623 / 2623 2259 / 2259 Output Total 2100 / 2100 1350 / 2150 2650 / 2650 800 / 800 Balance 523 / 523 909 / 109 -2650 / -2650 -800 / -800 Weight 80.603 kg 80 kg 75.931 kg 73.142 kg Constitutional: Present no acute distress, average body habitus, chronically ill appearing and cooperative Head: Present atraumatic and normocephalic ENT: Present normal exam Comment:: NG in left nare Respiratory: Present normal respiratory effort; Absent respiratory distress, rhonchi, wheezes or crackles Cardiac: Present Reg Rate and Rhythm GI: Present soft, distention, tenderness (Nonfocal) and diminished bowel sounds Extremities: Present normal inspection and full ROM Skin: Present intact; Absent erythema Neuro: Present Grossly Intact, alert, awake, oriented x 3 and moves all extremities Assessment and Plan *Assessment and plan (1) SBO (small bowel obstruction): Status: Acute Category: Medical Code(s): K56.609 - Unspecified intestinal obstruction, unspecified as to partial versus complete obstruction (2) BPH (benign prostatic hyperplasia): Status: Acute Qualifiers: Lower urinary tract symptom presence: unspecified whether lower urinary tract symptoms present Qualified Code(s): N40.0 - Benign prostatic hyperplasia without lower urinary tract symptoms Category: Medical Code(s): N40.0 - Benign prostatic hyperplasia without lower urinary tract symptoms (3) Hypertension: Status: Acute Category: Medical Code(s): I10 - Essential (primary) hypertension (4) JULIAN (acute kidney injury): Status: Acute Category: Medical Code(s): N17.9 - Acute kidney failure, unspecified Plan This is an 88-year-old male that presents to the ED with abdominal pain and imaging identifies small bowel obstruction. Previous abdominal surgery 10 to 12 years ago, and right inguinal herniography noted. Patient had NG tube placed 12/05/2023 for management of small bowel obstruction. Surgery consulted and assisting with care. Continues to require inpatient management. No bowel movements as of yet. Plan for surgery today. Problems addressed as follows: Small bowel obstruction ?12/05/2023 NG tube placed -Discussed case with surgery this morning, plan for laparoscopic evaluation for obstruction. Per my review of abdominal x-ray, continues to have obstruction, slightly worse dilation of small bowel today. - NG remains in place. -No bowel movement since admission. -Reglan 5 mg as needed every 6 hours for nausea and to promote gastric motility Acute kidney injury Appears to be resolved. BUN 22, creatinine 1.0. Repeat CBC, CMP, magnesium ordered for the morning. -Potassium 3.2. -White cell count normal at 5, hemoglobin 11. Hypertensive urgency - Amlodipine 5 mg daily -Hydralazine 10 mg IV every 4 hours or labetalol 10 mg IV as needed every 4 hours for blood pressure greater than 180 systolic N.p.o. Full Code Pantoprazole 40 mg IV daily Heparin 5000 units SQ twice daily
--- NOTE | 2023-12-08 07:57 | EXP.SURG.PN ---
Subjective Narrative: Patient states that he may have passed some gas. Has had very high NG output and has been dependent on NG tube. He has been on Reglan and simethicone. Acute abdominal series read pending but appears to show no evidence of any change with significant amount of bowel gas distention. Exam Data for Last 24 hours Vital signs and Labs for Last 24 Hours: Temp Pulse Resp BP Pulse Ox O2 Del Method O2 Flow Rate 98.4 F 100 H 18 163/89 H 94 L Room Air 96 12/08/23 04:00 12/08/23 04:00 12/08/23 04:00 12/08/23 04:00 12/08/23 04:00 12/08/23 06:54 12/07/23 00:00 Laboratory Results - last 24 hr 12/08/23 06:26: WBC 5.4, RBC 3.11 L, Hgb 11.0 L, Hct 32.6 L, MCV 105.0 H, MCH 35.4 H, MCHC 33.7, RDW 13.8, Plt Count 226, MPV 8.5, Neut % (Auto) 60.1, Lymph % (Auto) 28.9, [place] % (Auto) 9.7 H, Eos % (Auto) 0.6, Baso % (Auto) 0.7, Neut # (Auto) 3.2, Lymph # (Auto) 1.6, [place] # (Auto) 0.5, Eos # (Auto) 0.0, Baso # (Auto) 0.0, Sodium 142, Potassium 3.2 L, Chloride 110 H, Carbon Dioxide 26, Anion Gap 9.2, BUN 22 H D, Creatinine 1.00, Estimated Creat Clear 54, Estimated GFR 71, Est GFR ( Amer) 86, Glucose 98, Calcium 9.5, Total Bilirubin 0.7, AST 32, ALT 25, Alkaline Phosphatase 67, Total Protein 6.3, Albumin 3.7, Globulin 2.6, Albumin/Globulin Ratio 1.4 I & O for Last 24 hours: Intake & Output 12/05/23 12/06/23 12/07/23 12/08/23 11:59 11:59 11:59 11:59 Intake Total 1545 / 1545 3187 / 3187 750 / 750 Output Total 1650 / 1650 800 / 800 2300 / 2300 2150 / 2150 Balance -105 / -105 2387 / 2387 -1550 / -1550 -2150 / -2150 Weight 177 lb 11.2 oz 177 lb 11.187 oz 167 lb 6.4 oz 161 lb 4 oz *Routine Abdominal Exam Abdominal: Present distended Comments: Abdomen somewhat distended. Nontender. Progress Note: A&P Assessment and plan (1) SBO (small bowel obstruction): Status: Acute Assessment and plan: It appears as though surgery is likely inevitable. Patient has been hesitant to do so and proceed with surgery. He asks if he can do additional enemas. I tried to explain to him that this would not relieve a mechanical small bowel obstruction. Further discussion will be held regarding surgery. (2) BPH (benign prostatic hyperplasia): Status: Acute (3) Hypertension: Status: Acute (4) JULIAN (acute kidney injury): Status: Acute
[2023-12-08] MEDS: AMLODIPINE 5MG TABLET 5 MG PO (08:10)
[2023-12-08] MEDS: HEPARIN SODIUM 5,000 UNIT/ML VIAL 5000 UNIT SQ ×2 (08:10→20:22)
[2023-12-08] MEDS: FINASTERIDE 5MG TABLET 5 MG PO (08:10)
[2023-12-08 08:19] LABS: Magnesium 1.7 mg/dl (1.6-2.3)
--- NOTE | 2023-12-08 11:49 | P.PNANES_ITS ---
[facility] Disclaimer: The information contained in this section may have been updated after the patient was seen, as this information can be updated by other users. Medical History BPH (benign prostatic hyperplasia) Cancer Prostate disorder Hypertension Surgical History Hx of colonoscopy S/P right inguinal herniorrhaphy History of tonsillectomy Family History (Updated 12/03/23 @ 18:49 by Nora Addison RN) Other Heart disease Social History (Updated 12/03/23 @ 18:50 by Nora Addison RN) Smoking Status: Never smoker alcohol intake: never substance use type: denies use current occupational status: retired Travel in the last 8 weeks: None household members: none housing: house current occupational exposures/hazards: No caffeine: Yes [facility] Anesthesia Checklist Patient Identification Patient Identification: Arm Band, Family and Verbal (Name & ) Structural Data Admitted From: Inpatient (205) Planned Operative Procedure/s: Exploratory laparoscopy, poss. laparotomy, poss. SBR Consent for Planned Operative Procedure(s) Verified: Yes Verified Documents: Surgical Consent and History and Physical NPO Status Verified Time NPO: 00:00 Chart Verification Results Verified: CBC, BMP, ECG and Chest Xray Additional verifications Patient : No Anesthesia Reactions: No Hx Blood Transfusions: No Blood Transfusion Reaction: No Cardiovascular Assessment Heart Sounds: S1 & S2 Pulse Rhythm: Irregular Peripheral Edema: No Airway Assessment Mallampati Score:: Class II C-Spine Mobility Assessed: Yes (FROM) TMJ Mobility Assessed: Yes Dentition: Poor Dentition (Nothing loose per pt.) Neurological Assessment Level of Consciousness: Awake, Alert, Appropriate and Follows Commands Hx Seizures: No Numbness or tingling in extremities: No Anesthesia Plan Anesthesia Risk discussed: Yes Anesthesia Plan: Verified ASA Class: III Anesthesia Type: General
[2023-12-08] MEDS: AMPICILLIN SODIUM/SULBACTAM 3 GM in 0.9 % SODIUM CHLORIDE 100 ML IV (12:09)
[2023-12-08] MEDS: RINGERS SOLUTION,LACTATED 3,000 ML 25 ML IR (12:36)
[2023-12-08] MEDS: LIDOCAINE 1% 10ML MDV 10 ML (12:36)
[2023-12-08] MEDS: ROPIVACAINE 0.5% 30ML VIAL 150 MG (12:36)
--- NOTE | 2023-12-08 13:22 | EXP.OP.NOTE ---
Date of procedure: 12/08/23 Pre-op Diagnosis:: Small bowel obstruction Post-op Diagnosis:: Same Procedure performed:: Diagnostic laparoscopy, laparoscopic lysis of adhesions with freeing of intestinal obstruction. . Surgeon:: Raffi Emanuel MD MAINTENANCE TEAM LEADER:: Bebe Li Anesthesia: GETA Estimated blood loss (mL): 3 Clinical Note:: Patient is an 88-year-old male who had undergone diagnostic laparoscopy about a decade ago for possible bowel obstruction but he states that no obstruction was found. He had previously undergone open right inguinal hernia repair in July 2021. He presented to the emergency department on 12/03/2023 with onset of abdominal pain which progressed throughout the day. Evaluation in the emergency department at that time on 12/03/2023 revealed multiple loops of mildly dilated small bowel with air-fluid levels. Distal small bowel is decompressed. This may represent obstruction or ileus. Multiple gallstones in the gallbladder. He was admitted for inpatient of a bowel obstruction on 12/03/2023. Surgical consultation was obtained on 12/05/2023. At that time patient describes symptoms of acid reflux with some nausea. He was found to be distended with some tenderness. Given the diagnosis of bowel obstruction plan was made for attempt at nonoperative management. Nasogastric tube was placed. He had approximately 2 L output and felt better. His nasogastric tube had inadvertently come out and he had immediate recurrent symptoms and it was replaced and had relief of symptoms. Plan was for small bowel follow-through due to the question of ileus versus obstruction. He was administered contrast. This showed very little progression through the proximal small bowel with significant distention of the stomach after 4 hours and the patient became quite uncomfortable. Therefore his nasogastric tube was placed back to suction. He continued to remain refractory to nonoperative management. It was felt that he would require surgical intervention. Arrangements were made for diagnostic laparoscopy with possible laparotomy and possible bowel resection. . Operative findings:: He had a proximal to mid high-grade partial versus nearly complete small bowel obstruction secondary to a bridge of omental adhesions creating a tunnel through which the small bowel traversed with proximal bowel be markedly dilated and edematous and indurated and distal small bowel decompressed without inflammation. There were adhesions in the right upper quadrant at the hepatic flexure but this did not appear to be causing any issue with obstruction. . Operative note:: Consent was obtained patient was taken the operating room. He was positioned in a supine position. General anesthesia was induced via endotracheal tube. Maier catheter was placed. Abdomen was prepped and draped in the standard surgical fashion. Through a left subcostal incision 5 mm optical trocar was inserted under laparoscopic visualization carefully into the peritoneal cavity. CO2 pneumoperitoneum was then achieved to 15 mmHg. Laparoscopic surveillance was carried out. He was noted to have some significantly distended loops of the small bowel mostly in the left upper abdomen. Small bowel loops in the right abdomen appeared normal and decompressed. 5 mm trocar was inserted in the left lower abdomen. Ultimately an additional 5 mm trocar was inserted in the epigastrium. The 0 degree laparoscope was replaced with an angled 30 degree laparoscope. Previously placed right inguinal prefix mesh plug was noted and there were no adhesions to this. Small bowel was identified at the terminal ileum. This was completely decompressed. This was carefully inspected and run in a retrograde fashion. An area of omental adhesion through which the small bowel was traversed creating somewhat of a bridge was noted. This was creating a high-grade partial versus nearly complete obstruction with small bowel previously run completely decompressed and small bowel proximal to this dilated, edematous, distended, and mildly indurated. This adhesive omentum was elevated. It was incised with MADELYN ultrasonic harmonic maverick freeing the intestinal obstruction. A small pedicle of the fatty omentum was incised with Metzenbaum scissors. Ultimately the epigastric 5 mm trocar was replaced with 11 mm trocar and the fatty tissue was removed with an Endo Catch retrieval device. There was some reactive fluid in the perihepatic space and pelvis which was suctioned free. There were some adhesions at the hepatic flexure to the anterior abdominal wall but this did not appear to be results of any obstruction. There was good hemostasis. Trocars were then removed as CO2 pneumoperitoneum was evacuated. Fascia at the epigastric trocar site was closed with a 0 Vicryl suture. Local anesthetic was infiltrated into the trocar sites. Skin incisions were closed with 4-0 Monocryl in a subcuticular fashion. Dermabond and dressings were applied. . Condition: stable Disposition: PACU Complications:: None immediately apparent .
--- NOTE | 2023-12-08 13:43 | EXP.ANES.I ---
[facility] Anesthesia Record Part I Anesthesia Record I Intake, IV Amount: 500 (500mL LR + Hespan 6% x 500mL) Hydration: Adequate Estimated blood loss (mL): 50 Urine output (mL): 350 Blood Products used (#): none Blood Pressure: 144/63 SaO2: 99 Pulse Rate: 89 Airway Patency: Patent Respiratory Rate: 18 Temperature: 97.9 F Patient is:: Drowsy (Arousable), Nasal O2 (4L/min) and Stable Stable to PACU at:: 13:40
[2023-12-08 13:54] LABS: Microscopic,Cath URINE MICROSCOPIC (MICROSCOPIC)
[2023-12-08 14:14] LABS: Appearance,Urine/Cath CLEAR (Clear); Blood, Urine/Cath TRACE-I (Negative); Color,Urine/Cath YELLOW (Yellow); Glucose,Urine/Cath (UA) Negative (Negative); Ketones,Urine/Cath 2+ (Negative); Leukocyte Esterase,Cath Negative (Negative); Nitrate,Cath Negative (Negative); Protein,Urine/Cath 2+ (Negative); Specific Gravity, Urine/Cath >= 1.030 (1.005-1.030); Urobilinogen,Cath 0.2 EU/dl (0.2)
[2023-12-08 14:23] LABS: Bilirubin,Cath 1+ (Negative)
--- NOTE | 2023-12-08 14:23 | PC.NURSE ---
Pt. back to the floor abd dressing times 3 c/d/i vss.
[2023-12-08 14:24] LABS: Bacteria,Urine/Cath TRACE /lpf; RBC,Urine/Cath Occasional # /hpf (0-3); WBC,Urine/Cath Occasional #/hpf (0-3)
--- NOTE | 2023-12-08 14:29 | DIET.NUTRFU ---
Patient has been NPO x 3 days, sx today. Patient was trying to avoid sx yesterday when spoke to him. Had NG tube in place with 2450ml out yesterday. Will continue to follow sx recommendations for oral diet. If cannot start clear liquids within a couple days TPN would be recommended to avoid malnutrition.
[2023-12-08] MEDS: HYDROMORPHONE 2MG/ML SYRINGE 0.5 MG IV (14:49)
[2023-12-08] MEDS: HYDRALAZINE 20MG/ML VIAL 10 MG IV (15:42)
[2023-12-08] MEDS: METOCLOPRAMIDE HCL 10MG/2ML VIAL 5 MG IVP (15:46)
--- NOTE | 2023-12-08 15:51 | PC.NURSE ---
pt's sats decreased to 88% on RA and o2-2L applied, now 91% on 2L nc, f/c in place.
[2023-12-08] MEDS: MELATONIN 5MG TABLET 5 MG PO (20:21)
[2023-12-08] MEDS: SODIUM CHLORIDE 0.9% 10ML VIAL 10 ML IV (20:22)
[2023-12-08] MEDS: PANTOPRAZOLE 40MG VIAL 40 MG IV (20:22)
[2023-12-08] MEDS: FAMOTIDINE 20MG TABLET 20 MG PO (20:22)
[2023-12-09 04:00] VITALS: BP 157/62; PULSE 100; RESP 16; TEMP 36.7; O2SAT 93; BMI 21.5
[2023-12-09] MEDS: SIMETHICONE 80MG CHEWABLE TABLET 160 MG PO ×3 (06:21→17:10)
[2023-12-09 06:26] LABS: Basophils % 0.3 % (0.1-2.0); Eosinophils % 0.1 % (0.1-12.0); Hematocrit 32.1 % (42.0-52.0); Hemoglobin 10.8 g/dL (14.1-18.0); Lymphocytes # 0.9 K/mm3 (0.7-4.5); Lymphocytes % 7.3 % (10-50); Mean Corpuscular HGB Conc 33.7 g/dL (31.8-35.4); Mean Corpuscular Hemoglobin 35.5 pg (27.0-31.2); Mean Corpuscular Volume 105.4 fl (80-94); Mean Platelet Volume 8.4 fl (7.4-10.4); Monocytes # 0.5 K/mm3 (0.1-1.0); Monocytes % 3.9 % (1.7-9.3); Neutrophils # 10.4 K/mm3 (1.8-7.8); Neutrophils % 88.3 % (37.0-80.0); Platelet Count 214 K/mm3 (142-424); Red Blood Count 3.05 M/mm3 (4.60-6.20); White Blood Count 11.8 K/mm3 (4.8-10.8)
--- NOTE | 2023-12-09 06:52 | P.PN_ITS ---
Exam Data for Last 24 hours Vital signs and Labs for Last 24 Hours: Temp Pulse Resp BP Pulse Ox O2 Del Method O2 Flow Rate 98.6 F 114 H 16 143/57 H 93 L Room Air 1 12/08/23 21:00 12/08/23 21:00 12/08/23 21:00 12/08/23 21:00 12/08/23 21:00 12/09/23 05:00 12/09/23 03:00 Laboratory Results - last 24 hr 12/08/23 06:26: WBC 5.4, RBC 3.11 L, Hgb 11.0 L, Hct 32.6 L, MCV 105.0 H, MCH 35.4 H, MCHC 33.7, RDW 13.8, Plt Count 226, MPV 8.5, Neut % (Auto) 60.1, Lymph % (Auto) 28.9, [place] % (Auto) 9.7 H, Eos % (Auto) 0.6, Baso % (Auto) 0.7, Neut # (Auto) 3.2, Lymph # (Auto) 1.6, [place] # (Auto) 0.5, Eos # (Auto) 0.0, Baso # (Auto) 0.0, Sodium 142, Potassium 3.2 L, Chloride 110 H, Carbon Dioxide 26, Anion Gap 9.2, BUN 22 H D, Creatinine 1.00, Estimated Creat Clear 54, Estimated GFR 71, Est GFR ( Amer) 86, Glucose 98, Calcium 9.5, Magnesium 1.7, Total Bilirubin 0.7, AST 32, ALT 25, Alkaline Phosphatase 67, Total Protein 6.3, Albumin 3.7, Globulin 2.6, Albumin/Globulin Ratio 1.4 12/08/23 : Urine Color Yellow, Urine Appearance Clear, Urine pH 6.0, Ur Specific [place] >= 1.030, Urine Protein 2+, Urine Glucose (UA) Negative, Urine Ketones 2+, Urine Blood Trace-i, Urine Nitrate Negative, Urine Bilirubin 1+ A, Urine Urobilinogen 0.2, Ur Leukocyte Esterase Negative, Urine RBC Occasional, Urine WBC Occasional, Ur Squamous Epith Cells 3-5, Urine Bacteria Trace I & O for Last 24 hours: Intake & Output 12/06/23 12/07/23 12/08/23 12/09/23 11:59 11:59 11:59 11:59 Intake Total 3187 / 3187 750 / 750 500 / 500 Output Total 800 / 800 2300 / 2300 2150 / 2150 1500 / 1500 Balance 2387 / 2387 -1550 / -1550 -2150 / -2150 -1000 / -1000 Weight 177 lb 11.187 oz 167 lb 6.4 oz 161 lb 4 oz *Routine Abdominal Exam Abdominal: Present soft Comments: Incisions clean Progress Note: A&P Assessment and plan (1) SBO (small bowel obstruction): Status: Acute Assessment and plan: NG to gravity. Possible removal later. DC grewal. (2) BPH (benign prostatic hyperplasia): Status: Acute (3) Hypertension: Status: Acute (4) JULIAN (acute kidney injury): Status: Acute
[2023-12-09 07:26] LABS: Alanine Aminotransferase 33 U/L (12-78); Albumin/Globulin Ratio 1.3 (1.1-1.8); Alkaline Phosphatase 56 U/L (38-126); Anion Gap 10.9 mEq/L (5-15); Aspartate Amino Transferase 52 U/L (17-59); Bilirubin,Total 0.9 mg/dl (0.2-1.3); Blood Urea Nitrogen 26 mg/dl (9-20); Calcium 8.8 mg/dl (8.4-10.2); Carbon Dioxide 25 mmol/L (22.0-30.0); Chloride 110 mmol/L (98-107); Creatinine Clearance Estimated 47 mL/min (50-200); Estimated Glomerular Filt Rate 57 ml/min (>60); GFR (African American) 69 ML/MIN (>60); Globulin 2.4 g/dL (1.3-3.2); Glucose 97 mg/dl (74-100); Sodium 143 mmol/L (136-145); Total Protein,Serum 5.4 g/dl (6.3-8.2)
[2023-12-09 07:27] LABS: MANUAL DIFFERENTIAL MANUAL DIFFERENTIAL (MANUAL DIFF)
[2023-12-09 07:41] LABS: Potassium 2.9 mmoL/L (3.5-5.1)
[2023-12-09 08:00] VITALS: BP 157/66; PULSE 85; RESP 17; TEMP 36.4; O2SAT 93
[2023-12-09] MEDS: KCl 10mEq/100ml 100 ML 100 MEQ IV ×3 (08:19→10:31)
[2023-12-09] MEDS: FINASTERIDE 5MG TABLET 5 MG PO (08:20)
[2023-12-09] MEDS: OXYCODONE 5MG IMMEDIATE RELEASE TABLET 10 MG PO (08:20)
[2023-12-09] MEDS: AMLODIPINE 5MG TABLET 5 MG PO (08:20)
--- NOTE | 2023-12-09 08:21 | PC.NURSE ---
NG to gravity and f/c removed.
[2023-12-09 08:57] LABS: Magnesium 1.5 mg/dl (1.6-2.3)
[2023-12-09 09:38] LABS: Lymphocytes % 3 % (10-50); Monocytes % 5 % (2-9); Neutrophils % 80 % (42-76); Platelet Estimate Normal; RBC Morphology Normal; Total Cells Counted 100
--- NOTE | 2023-12-09 10:53 | EXP.ACUTE.PN ---
Subjective *Date: 12/09/23 *Time: 15:44 Interval history: Tolerated surgery well yesterday. Scar tissue released. Having bowel movement overnight and passing gas. Feeling much better. No nausea or vomiting. Stable on room air. Afebrile. Medical Exam Vital signs and Labs for Last 24 Hours: Vital Signs Temp Pulse Pulse Resp BP BP Pulse Ox 12/09/23 09:45 12/09/23 08:01 12/09/23 08:00 97.6 F 85 17 157/66 H 93 L 12/09/23 08:00 12/09/23 06:56 12/09/23 05:00 12/09/23 04:00 98.0 F 100 H 16 157/62 H 93 L 12/09/23 03:00 12/09/23 01:00 12/08/23 23:00 12/08/23 21:00 98.6 F 114 H 16 143/57 H 93 L 12/08/23 21:00 12/08/23 20:00 98.6 F 110 H 18 150/73 H 94 L 12/08/23 20:00 12/08/23 18:57 98.3 F 118 H 18 157/74 H 91 L 12/08/23 18:00 97.7 F 110 H 18 150/57 H 91 L 12/08/23 17:51 12/08/23 17:00 97.7 F 118 H 18 126/86 91 L 12/08/23 16:38 12/08/23 16:30 97.7 F 107 H 18 121/81 90 L 12/08/23 16:00 97.7 F 106 H 18 135/79 90 L 12/08/23 15:30 97.7 F 110 H 170/51 H 88 L 12/08/23 15:00 97.7 F 106 H 18 144/63 H 92 L 12/08/23 14:45 97.7 F 106 H 18 153/58 H 91 L 12/08/23 14:37 12/08/23 14:30 97.7 F 103 H 18 154/57 H 91 L 12/08/23 14:25 97.7 F 105 H 18 155/64 H 91 L 12/08/23 14:15 97.7 F 105 H 18 155/64 H 91 L 12/08/23 14:05 97.9 F 91 H 16 168/90 H 96 12/08/23 13:55 97.9 F 91 H 16 146/67 H 98 12/08/23 13:46 97.9 F 89 18 144/63 H 12/08/23 13:45 97.9 F 88 16 153/63 H 98 12/08/23 13:35 97.9 F 88 16 144/63 H 94 L O2 Del Method O2 Flow Rate 12/09/23 09:45 Room Air 12/09/23 08:01 Room Air 12/09/23 08:00 Room Air 12/09/23 08:00 Room Air 12/09/23 06:56 Room Air 12/09/23 05:00 Room Air 12/09/23 04:00 Room Air 12/09/23 03:00 Nasal Cannula 1 12/09/23 01:00 Nasal Cannula 1 12/08/23 23:00 Nasal Cannula 1 12/08/23 21:00 Nasal Cannula 1 12/08/23 21:00 Nasal Cannula 2 12/08/23 20:00 Nasal Cannula 2 12/08/23 20:00 Nasal Cannula 2 12/08/23 18:57 Nasal Cannula 2 12/08/23 18:00 Nasal Cannula 2 12/08/23 17:51 Nasal Cannula 2 12/08/23 17:00 Nasal Cannula 2 12/08/23 16:38 Nasal Cannula 2 12/08/23 16:30 Nasal Cannula 12/08/23 16:00 Nasal Cannula 12/08/23 15:30 Room Air 12/08/23 15:00 Room Air 12/08/23 14:45 Room Air 12/08/23 14:37 Room Air 12/08/23 14:30 Room Air 12/08/23 14:25 Room Air 12/08/23 14:15 Room Air 12/08/23 14:05 Room Air 12/08/23 13:55 Nasal Cannula 3 12/08/23 13:46 12/08/23 13:45 Nasal Cannula 5 12/08/23 13:35 Nasal Cannula 5 Intake and Output 12/08/23 12/09/23 12/09/23 23:59 07:59 15:59 Intake Total 0 / 500 600 / 600 Output Total 1200 / 1200 Balance 0 / -1100 -1200 / -600 600 / -600 Intake: Intake, Oral Amount 0 / 0 Intake, Total IV Amount 600 / 600 0.9 % Sodium Chloride 1000ML 1, 300 / 300 000 ml @ 100 mls/hr IV .Q10H [facility] Rx#:[id number] KCl 10mEq/100ml 100 ml @ 100 300 / 300 mls/hr IV Q1H [facility] Rx#:[id number] Output: Output, Urine Amount 500 / 500 Output, Gastric Drainage Amount 700 / 700 Right Nare 700 / 700 Other: Number of Voids 0 Weight 76.204 kg Patient Weight 12/09/23 23:59 Weight 76.204 kg Laboratory Results - last 24 hr 12/08/23 : Urine Color Yellow, Urine Appearance Clear, Urine pH 6.0, Ur Specific [place] >= 1.030, Urine Protein 2+, Urine Glucose (UA) Negative, Urine Ketones 2+, Urine Blood Trace-i, Urine Nitrate Negative, Urine Bilirubin 1+ A, Urine Urobilinogen 0.2, Ur Leukocyte Esterase Negative, Urine RBC Occasional, Urine WBC Occasional, Ur Squamous Epith Cells 3-5, Urine Bacteria Trace 12/09/23 05:50: WBC 11.8 H D, RBC 3.05 L, Hgb 10.8 L, Hct 32.1 L, MCV 105.4 H, MCH 35.5 H, MCHC 33.7, RDW 14.0, Plt Count 214, MPV 8.4, Neut % (Auto) 88.3 H, Lymph % (Auto) 7.3 L, [place] % (Auto) 3.9, Eos % (Auto) 0.1, Baso % (Auto) 0.3, Neut # (Auto) 10.4 H, Lymph # (Auto) 0.9, [place] # (Auto) 0.5, Eos # (Auto) 0.0, Baso # (Auto) 0.0, Total Counted 100, Neutrophils % (Manual) 80 H, Band Neutrophils % 12.0 H, Lymphocytes % (Manual) 3 L, Monocytes % (Manual) 5, Platelet Estimate Normal, RBC Morphology Normal, Sodium 143, Potassium 2.9 L*, Chloride 110 H, Carbon Dioxide 25, Anion Gap 10.9, BUN 26 H, Creatinine 1.20, Estimated Creat Clear 47, Estimated GFR 57 L, Est GFR ( Amer) 69, Glucose 97, Calcium 8.8, Magnesium 1.5 L D, Total Bilirubin 0.9, AST 52 D, ALT 33 D, Alkaline Phosphatase 56, Total Protein 5.4 L, Albumin 3.0 L D, Globulin 2.4, Albumin/Globulin Ratio 1.3 I & O for Labs for Last 24 Hours: Intake & Output 12/06/23 12/07/23 12/08/23 12/09/23 23:59 23:59 23:59 23:59 Intake Total 2259 / 2259 500 / 500 600 / 600 Output Total 1350 / 2150 2650 / 2650 1600 / 1600 1200 / 1200 Balance 909 / 109 -2650 / -2650 -1100 / -1100 -600 / -600 Weight 80 kg 75.931 kg 73.142 kg 76.204 kg Constitutional: Present no acute distress, average body habitus, chronically ill appearing and cooperative Head: Present atraumatic and normocephalic ENT: Present normal exam Comment:: NG in left nare Respiratory: Present normal respiratory effort; Absent respiratory distress, rhonchi, wheezes or crackles Cardiac: Present Reg Rate and Rhythm GI: Present soft, distention, tenderness (Interval improvement) and normal bowel sounds Extremities: Present normal inspection and full ROM Skin: Present intact; Absent erythema Neuro: Present Grossly Intact, alert, awake, oriented x 3 and moves all extremities Assessment and Plan *Assessment and plan (1) SBO (small bowel obstruction): Status: Acute Category: Medical Code(s): K56.609 - Unspecified intestinal obstruction, unspecified as to partial versus complete obstruction (2) BPH (benign prostatic hyperplasia): Status: Acute Qualifiers: Lower urinary tract symptom presence: unspecified whether lower urinary tract symptoms present Qualified Code(s): N40.0 - Benign prostatic hyperplasia without lower urinary tract symptoms Category: Medical Code(s): N40.0 - Benign prostatic hyperplasia without lower urinary tract symptoms (3) Hypertension: Status: Acute Category: Medical Code(s): I10 - Essential (primary) hypertension (4) JULIAN (acute kidney injury): Status: Acute Category: Medical Code(s): N17.9 - Acute kidney failure, unspecified Plan This is an 88-year-old male that presents to the ED with abdominal pain and imaging identifies small bowel obstruction. Previous abdominal surgery 10 to 12 years ago, and right inguinal herniography noted. Patient had NG tube placed 12/05/2023 for management of small bowel obstruction. Surgery consulted and assisting with care. Continues to require inpatient management. Taken for surgery yesterday, had omentum band causing obstruction. Doing better since lysis yesterday. Bowel movement overnight. Tolerating sips and chips. Problems addressed as follows: Small bowel obstruction ?12/05/2023 NG tube placed, removed today. -Discussed case with surgery this morning, plan for slow advancement of diet. Tolerated surgery well yesterday. Had scar tissue causing obstruction. Seems to be having relief after lysing adhesions/scar tissue. -Monitor bowel function. Slowly advance diet. -Reglan 5 mg as needed every 6 hours for nausea and to promote gastric motility Acute kidney injury Resolved, creatinine 1.2, BUN 26. Potassium 2.9. Will replace IV today. Repeat CBC, CMP, magnesium ordered for the morning. White cell count elevated 11.8, likely reactive. Hemoglobin 11. Hypertensive urgency - Amlodipine 5 mg daily -Resume lisinopril 10 mg daily. Will discontinue hydralazine - labetalol 10 mg IV as needed every 4 hours for blood pressure greater than 180 systolic Sips and chips Full Code Pantoprazole 40 mg IV daily Heparin 5000 units SQ twice daily
[2023-12-09] MEDS: MAGNESIUM SULFATE IN WATER 2 GM/50 ML PIGGYBACK IV (11:38)
--- NOTE | 2023-12-09 13:13 | P.PNANES_ITS ---
[facility] Anesthesia Record Part II Anesthesia Record Part II Discharge Time: 14:05 Destination: Medical Surgical Department PACU nurse assessment reviewed?: Yes Patient Condition:: Good Anesthesia Complications:: None Swallowing reflex intact?: Yes Airway Patency: Patent Cyanosis?: No Blood Pressure: 168/90 SaO2: 96 Respiratory Rate: 16 Pulse Rate: 91 Temperature: 97.9 F Mental Status: Alert & Oriented Pain level:: 0 Nausea and/or vomitting:: None Intake, IV Amount: 1,000 Hydration: Adequate
[2023-12-09 13:14] VITALS: BP 168/90; PULSE 91; RESP 16; TEMP 36.6; O2SAT 96
--- NOTE | 2023-12-09 13:27 | EXP.SURG.PN ---
Subjective Narrative: Patient tolerated NG to gravity. There is a few hundred cc's melted ice chips in bag. He is taking in a significant amount of ice chips. He is passing gas. Patient asks about an enema or stool softener. Exam Data for Last 24 hours Vital signs and Labs for Last 24 Hours: Temp Pulse Resp BP Pulse Ox O2 Del Method O2 Flow Rate 97.6 F 85 16 157/66 H 93 L Room Air 1 12/09/23 08:00 12/09/23 08:00 12/09/23 13:14 12/09/23 08:00 12/09/23 08:00 12/09/23 09:45 12/09/23 03:00 Laboratory Results - last 24 hr 12/08/23 : Urine Color Yellow, Urine Appearance Clear, Urine pH 6.0, Ur Specific [place] >= 1.030, Urine Protein 2+, Urine Glucose (UA) Negative, Urine Ketones 2+, Urine Blood Trace-i, Urine Nitrate Negative, Urine Bilirubin 1+ A, Urine Urobilinogen 0.2, Ur Leukocyte Esterase Negative, Urine RBC Occasional, Urine WBC Occasional, Ur Squamous Epith Cells 3-5, Urine Bacteria Trace 12/09/23 05:50: WBC 11.8 H D, RBC 3.05 L, Hgb 10.8 L, Hct 32.1 L, MCV 105.4 H, MCH 35.5 H, MCHC 33.7, RDW 14.0, Plt Count 214, MPV 8.4, Neut % (Auto) 88.3 H, Lymph % (Auto) 7.3 L, [place] % (Auto) 3.9, Eos % (Auto) 0.1, Baso % (Auto) 0.3, Neut # (Auto) 10.4 H, Lymph # (Auto) 0.9, [place] # (Auto) 0.5, Eos # (Auto) 0.0, Baso # (Auto) 0.0, Total Counted 100, Neutrophils % (Manual) 80 H, Band Neutrophils % 12.0 H, Lymphocytes % (Manual) 3 L, Monocytes % (Manual) 5, Platelet Estimate Normal, RBC Morphology Normal, Sodium 143, Potassium 2.9 L*, Chloride 110 H, Carbon Dioxide 25, Anion Gap 10.9, BUN 26 H, Creatinine 1.20, Estimated Creat Clear 47, Estimated GFR 57 L, Est GFR ( Amer) 69, Glucose 97, Calcium 8.8, Magnesium 1.5 L D, Total Bilirubin 0.9, AST 52 D, ALT 33 D, Alkaline Phosphatase 56, Total Protein 5.4 L, Albumin 3.0 L D, Globulin 2.4, Albumin/Globulin Ratio 1.3 I & O for Last 24 hours: Intake & Output 12/07/23 12/08/23 12/09/23 12/10/23 11:59 11:59 11:59 11:59 Intake Total 750 / 750 1100 / 1100 1000 / 1000 Output Total 2300 / 2300 2150 / 2150 1999 / 1999 Balance -1550 / -1550 -2150 / -2150 -900 / -900 1000 / 1000 Weight 167 lb 6.4 oz 161 lb 4 oz 168 lb *Routine Abdominal Exam Comments: Slightly distended. Progress Note: A&P Assessment and plan (1) SBO (small bowel obstruction): Status: Acute Assessment and plan: Try NG out. Limited amount of ice chips. If tolerates overnight possible clear liquids tomorrow. I will start IVF. Give enema at patient's request. (2) BPH (benign prostatic hyperplasia): Status: Acute (3) Hypertension: Status: Acute (4) JULIAN (acute kidney injury): Status: Acute
[2023-12-09] MEDS: SODIUM PHOS/BIPHOSPHATE FLEET 133ML ENEMA 133 ML RC (14:15)
[2023-12-09] MEDS: D5W/0.45% NaCl w/20mEq KCL 1,000 ML 75 ML IV (14:39)
--- NOTE | 2023-12-09 14:42 | PC.NURSE ---
Enema given with no results.
[2023-12-09 16:00] VITALS: BP 160/84; PULSE 102; RESP 19; TEMP 36.8; O2SAT 92
[2023-12-09 20:00] VITALS: BP 176/77; PULSE 103; RESP 18; TEMP 37.1; O2SAT 93
[2023-12-09] MEDS: LISINOPRIL 10MG TABLET 10 MG PO (20:11)
[2023-12-09] MEDS: PANTOPRAZOLE 40MG VIAL 40 MG IV (20:11)
[2023-12-09] MEDS: SODIUM CHLORIDE 0.9% 10ML VIAL 10 ML IV (20:11)
[2023-12-09] MEDS: FAMOTIDINE 20MG TABLET 20 MG PO (20:12)
[2023-12-09] MEDS: MELATONIN 5MG TABLET 5 MG PO (20:12)
[2023-12-09] MEDS: HEPARIN SODIUM 5,000 UNIT/ML VIAL 5000 UNIT SQ (20:12)
[2023-12-10] MEDS: SIMETHICONE 80MG CHEWABLE TABLET 160 MG PO ×2 (01:06→05:13)
[2023-12-10 04:00] VITALS: BP 174/83; PULSE 100; RESP 16; TEMP 36.9; O2SAT 93; BMI 21.5
[2023-12-10] MEDS: D5W/0.45% NaCl w/20mEq KCL 1,000 ML 75 ML IV (05:14)
[2023-12-10 07:56] VITALS: BP 180/86; PULSE 90; RESP 18; TEMP 37.4; O2SAT 93
--- NOTE | 2023-12-10 08:00 | EXP.ACUTE.PN ---
Subjective *Date: 12/10/23 *Time: 13:28 Interval history: Patient denies any pain or shortness of breath. Feeling somewhat better today. Asking for more than ice chips. Has had a little bit of gas but no bowel movement since yesterday. No nausea or vomiting. Ambulating independently. Medical Exam Vital signs and Labs for Last 24 Hours: Vital Signs Temp Pulse Pulse Resp BP Pulse Ox O2 Del Method 12/10/23 07:56 99.3 F 90 18 180/86 H 93 L Room Air 12/10/23 06:42 Room Air 12/10/23 05:00 Room Air 12/10/23 04:00 98.4 F 100 H 16 174/83 H 93 L Room Air 12/10/23 03:00 Room Air 12/10/23 01:00 Room Air 12/09/23 23:00 Room Air 12/09/23 21:00 Room Air 12/09/23 20:00 Room Air 12/09/23 20:00 98.8 F 103 H 18 176/77 H 93 L Room Air 12/09/23 18:13 Room Air 12/09/23 16:46 Room Air 12/09/23 16:00 98.2 F 102 H 19 160/84 H 92 L Room Air 12/09/23 14:09 Room Air 12/09/23 13:14 16 12/09/23 09:45 Room Air 12/09/23 08:01 Room Air Intake and Output 12/09/23 12/10/23 12/10/23 23:59 07:59 15:59 Intake Total 1140 / 1140 Output Total 0 / 1200 0 / 0 Balance 0 / 400 1140 / 1140 Intake: Intake, Oral Amount 240 / 240 Intake, Total IV Amount 900 / 900 D5W/0.45% NaCl w/20mEq KCL 1, 900 / 900 000 ml @ 75 mls/hr IV .[id number] [facility] Rx#:[id number] Output: Output, Urine Amount 0 / 500 0 / 0 Other: Number of Voids 0 Number of Unmeasured Voids 1 1 Number of Bowel Movements 1 Weight 76.249 kg Patient Weight 12/10/23 23:59 Weight 76.249 kg Laboratory Results - last 24 hr 12/09/23 05:50: Total Counted 100, Neutrophils % (Manual) 80 H, Band Neutrophils % 12.0 H, Lymphocytes % (Manual) 3 L, Monocytes % (Manual) 5, Platelet Estimate Normal, RBC Morphology Normal, Magnesium 1.5 L D I & O for Labs for Last 24 Hours: Intake & Output 12/07/23 12/08/23 12/09/23 12/10/23 23:59 23:59 23:59 23:59 Intake Total 500 / 500 1600 / 1600 1140 / 1140 Output Total 2650 / 2650 1600 / 1600 1200 / 1200 0 / 0 Balance -2650 / -2650 -1100 / -1100 400 / 400 1140 / 1140 Weight 75.931 kg 73.142 kg 76.204 kg 76.249 kg Constitutional: Present no acute distress, average body habitus, chronically ill appearing and cooperative Head: Present atraumatic and normocephalic ENT: Present normal exam Respiratory: Present normal respiratory effort; Absent respiratory distress, rhonchi, wheezes or crackles Cardiac: Present Reg Rate and Rhythm GI: Present soft, distention, tenderness (Interval improvement) and normal bowel sounds Extremities: Present normal inspection and full ROM Skin: Present intact; Absent erythema Neuro: Present Grossly Intact, alert, awake, oriented x 3 and moves all extremities Assessment and Plan *Assessment and plan (1) SBO (small bowel obstruction): Status: Acute Category: Medical Code(s): K56.609 - Unspecified intestinal obstruction, unspecified as to partial versus complete obstruction (2) BPH (benign prostatic hyperplasia): Status: Acute Qualifiers: Lower urinary tract symptom presence: unspecified whether lower urinary tract symptoms present Qualified Code(s): N40.0 - Benign prostatic hyperplasia without lower urinary tract symptoms Category: Medical Code(s): N40.0 - Benign prostatic hyperplasia without lower urinary tract symptoms (3) Hypertension: Status: Acute Category: Medical Code(s): I10 - Essential (primary) hypertension (4) JULIAN (acute kidney injury): Status: Acute Category: Medical Code(s): N17.9 - Acute kidney failure, unspecified Plan This is an 88-year-old male that presents to the ED with abdominal pain and imaging identifies small bowel obstruction. Previous abdominal surgery 10 to 12 years ago, and right inguinal herniography noted. Patient had NG tube placed 12/05/2023 for management of small bowel obstruction. Surgery consulted and assisting with care. Continues to require inpatient management. Status post surgery on 12/07. Omental band released. Doing better. Will advance diet today. Surgery assisting with care. Problems addressed as follows: Small bowel obstruction ?12/05/2023 NG tube placed, removed today. -Discussed case with surgery this morning, plan for advancement to clear liquids later today. Status post surgery 12/07. Had scar tissue causing obstruction. Seems to be having relief after lysing adhesions/scar tissue. -Monitor bowel function. Slowly advance diet. Bowel regimen with docusate/senna twice daily -Reglan 5 mg as needed every 6 hours for nausea and to promote gastric motility Acute kidney injury Resolved, creatinine 1.0 this morning. BUN 22. Potassium 3.1. Continue potassium replacement. Discontinue IV fluids. Repeat CBC, CMP, magnesium ordered for the morning. White cell count elevated 16, likely reactive. Hemoglobin 10. Hypertensive urgency - Amlodipine 5 mg daily - lisinopril 10 mg daily. - labetalol 10 mg IV as needed every 4 hours for blood pressure greater than 180 systolic Sips and chips Full Code Pantoprazole 40 mg IV daily Heparin 5000 units SQ twice daily
[2023-12-10 08:04] LABS: Basophils % 0.2 % (0.1-2.0); Eosinophils # 0.1 K/mm3 (0.0-0.4); Eosinophils % 0.8 % (0.1-12.0); Hematocrit 30.5 % (42.0-52.0); Hemoglobin 10.3 g/dL (14.1-18.0); Lymphocytes # 1.3 K/mm3 (0.7-4.5); Mean Corpuscular HGB Conc 33.8 g/dL (31.8-35.4); Mean Corpuscular Hemoglobin 35.2 pg (27.0-31.2); Mean Corpuscular Volume 104.1 fl (80-94); Mean Platelet Volume 9.2 fl (7.4-10.4); Monocytes # 0.3 K/mm3 (0.1-1.0); Neutrophils # 14.2 K/mm3 (1.8-7.8); Platelet Count 210 K/mm3 (142-424); Red Blood Count 2.93 M/mm3 (4.60-6.20); Red Cell Distribution Width 14.1 % (11.5-17.5); White Blood Count 15.9 K/mm3 (4.8-10.8)
[2023-12-10 08:08] LABS: MANUAL DIFFERENTIAL MANUAL DIFFERENTIAL (MANUAL DIFF)
[2023-12-10 08:09] LABS: Chloride 110 mmol/L (98-107)
[2023-12-10 08:10] LABS: Potassium 3.1 mmoL/L (3.5-5.1); Sodium 139 mmol/L (136-145)
[2023-12-10 08:12] LABS: Alanine Aminotransferase 27 U/L (12-78); Aspartate Amino Transferase 35 U/L (17-59); Blood Urea Nitrogen 22 mg/dl (9-20); Creatinine Clearance Estimated 56 mL/min (50-200); Estimated Glomerular Filt Rate 71 ml/min (>60); GFR (African American) 86 ML/MIN (>60)
[2023-12-10 08:13] LABS: Albumin/Globulin Ratio 1.1 (1.1-1.8); Alkaline Phosphatase 65 U/L (38-126); Anion Gap 7.1 mEq/L (5-15); Bilirubin,Total 0.7 mg/dl (0.2-1.3); Calcium 8.7 mg/dl (8.4-10.2); Carbon Dioxide 25 mmol/L (22.0-30.0); Globulin 2.8 g/dL (1.3-3.2); Glucose 131 mg/dl (74-100); Total Protein,Serum 5.8 g/dl (6.3-8.2)
[2023-12-10] MEDS: AMLODIPINE 5MG TABLET 5 MG PO (08:17)
[2023-12-10] MEDS: FINASTERIDE 5MG TABLET 5 MG PO (08:17)
[2023-12-10] MEDS: HEPARIN SODIUM 5,000 UNIT/ML VIAL 5000 UNIT SQ ×2 (08:17→20:34)
[2023-12-10] MEDS: LISINOPRIL 10MG TABLET 10 MG PO ×2 (08:24→20:35)
[2023-12-10 08:44] LABS: Lymphocytes % 9 % (10-50); Monocytes % 2 % (2-9); Neutrophils % 89 % (42-76); Platelet Estimate Normal; RBC Morphology Normal; Total Cells Counted 100
[2023-12-10] MEDS: SENNOSIDES 8.6MG/DOCUSATE 50MG TABLET 1 TAB PO ×2 (10:49→20:35)
--- NOTE | 2023-12-10 12:09 | EXP.SURG.PN ---
Subjective Patient reports: no new complaints Narrative: Passing gas, BM yesterday Exam Data for Last 24 hours Vital signs and Labs for Last 24 Hours: Temp Pulse Resp BP Pulse Ox O2 Del Method O2 Flow Rate 99.3 F 90 18 180/86 H 93 L Room Air 1 12/10/23 07:56 12/10/23 07:56 12/10/23 07:56 12/10/23 07:56 12/10/23 07:56 12/10/23 10:59 12/09/23 03:00 Laboratory Results - last 24 hr 12/10/23 08:00: WBC 15.9 H D, RBC 2.93 L, Hgb 10.3 L, Hct 30.5 L, MCV 104.1 H, MCH 35.2 H, MCHC 33.8, RDW 14.1, Plt Count 210, MPV 9.2, Neut % (Auto) 89.0 H, Lymph % (Auto) 8.0 L, [place] % (Auto) 2.0, Eos % (Auto) 0.8, Baso % (Auto) 0.2, Neut # (Auto) 14.2 H, Lymph # (Auto) 1.3, [place] # (Auto) 0.3, Eos # (Auto) 0.1, Baso # (Auto) 0.0, Total Counted 100, Neutrophils % (Manual) 89 H, Lymphocytes % (Manual) 9 L, Monocytes % (Manual) 2, Platelet Estimate Normal, RBC Morphology Normal, Sodium 139, Potassium 3.1 L, Chloride 110 H, Carbon Dioxide 25, Anion Gap 7.1, BUN 22 H, Creatinine 1.00, Estimated Creat Clear 56, Estimated GFR 71, Est GFR ( Amer) 86 D, Glucose 131 H, Calcium 8.7, Magnesium 2.0 D, Total Bilirubin 0.7, AST 35 D, ALT 27, Alkaline Phosphatase 65, Total Protein 5.8 L, Albumin 3.0 L, Globulin 2.8, Albumin/Globulin Ratio 1.1 I & O for Last 24 hours: Intake & Output 12/07/23 12/08/23 12/09/23 12/10/23 23:59 23:59 23:59 23:59 Intake Total 500 / 500 1600 / 1600 1240 / 1240 Output Total 2650 / 2650 1600 / 1600 1200 / 1200 0 / 0 Balance -2650 / -2650 -1100 / -1100 400 / 400 1240 / 1240 Weight 167 lb 6.4 oz 161 lb 4 oz 168 lb 168 lb 1.6 oz *Routine Abdominal Exam Abdominal: Present soft; Absent tenderness, distended, rebound or guarding Progress Note: A&P Assessment and plan (1) SBO (small bowel obstruction): Status: Acute Assessment and plan: Resolved after surgery. He seems to be doing very well. Advance to noncarbonated clears. Keep on clears only today. Advance tomorrow if tolerating without any N/V or distention. Will watch WBC but likely demargination after surgery. (2) BPH (benign prostatic hyperplasia): Status: Acute (3) Hypertension: Status: Acute (4) JULIAN (acute kidney injury): Status: Acute
[2023-12-10 16:00] VITALS: BP 157/81; PULSE 87; RESP 20; TEMP 36.6; O2SAT 92
--- NOTE | 2023-12-10 16:04 | XR_ITS ---
PROCEDURE INFORMATION: Exam: XR Abdomen Exam date and time: 12/10/2023 5:35 PM Age: 88 years old Clinical indication: Bloating; Additional info: Distension TECHNIQUE: Imaging protocol: Radiologic exam of the abdomen. Views: Frontal supine view of the abdomen. 1 View. COMPARISON: CR XR ACUTE ABDOMEN SERIES 12/08/2023 7:29 AM FINDINGS: Gastrointestinal tract: Increasing amount of gas and distended appearing small bowel loops. These measure up to 4.9 cm in diameter which is similar previous. May be severe ileus or distal obstruction. Limited colonic gas. Colonic diverticulosis. Bones/joints: Unremarkable. IMPRESSION: Increasing amount of gas in distended appearing small bowel loops. These measure up to 4.9 cm in diameter which is similar previous. This be severe ileus or distal obstruction.
[2023-12-10] MEDS: KETOROLAC 30MG/ML VIAL 30 MG IV (16:16)
--- NOTE | 2023-12-10 18:47 | PC.NURSE ---
pt had first clear liquid diet at lunch and around 1600 pt called out with complaints of abd pain with swelling. bowel sound active in all four quadrants. notified valentin. admin 30mg toradol, encouraged walking to aid in flatus and per valentin, cut back on ice chip/water intake as pt has been consuming alot. pt has had adequate relief with with pain meds and passing gas. no complaints at this time. pt currently walking the halls. incision site w/ dsg cdi, no signs of infection. pt done well with supper. no needs at this time.
[2023-12-10 19:51] VITALS: BP 156/88; PULSE 91; RESP 17; TEMP 36.4; O2SAT 92
[2023-12-10 19:53] VITALS: O2SAT 92
[2023-12-10] MEDS: FAMOTIDINE 20MG TABLET 20 MG PO (20:34)
[2023-12-10] MEDS: MELATONIN 5MG TABLET 5 MG PO (20:35)
[2023-12-10] MEDS: PANTOPRAZOLE 40MG VIAL 40 MG IV (20:35)
[2023-12-11 04:00] VITALS: BMI 21.7
--- NOTE | 2023-12-11 04:28 | PC.NURSE ---
88 yo male pt remains a/o x 4 with dx of SBO s/p dx lap. Pt has denied pain, N/V throughout shift. He is tolerating clear liquids at present. Pt reports LBM 3-4 days ago, good BS all quad and passing gas . Pt has ambulated in [place] X 1 this shift and tolerated well
[2023-12-11 04:33] VITALS: BP 165/73; PULSE 83; RESP 18; TEMP 36.6; O2SAT 92
[2023-12-11 07:22] VITALS: TEMP 37.1
[2023-12-11 08:00] VITALS: BP 164/74; PULSE 102; RESP 18; TEMP 36.7; O2SAT 97
[2023-12-11 08:25] LABS: Chloride 108 mmol/L (98-107); Sodium 139 mmol/L (136-145)
[2023-12-11 08:27] LABS: Blood Urea Nitrogen 24 mg/dl (9-20); Creatinine Clearance Estimated 51 mL/min (50-200); Estimated Glomerular Filt Rate 63 ml/min (>60); GFR (African American) 77 ML/MIN (>60)
[2023-12-11 08:28] LABS: Alanine Aminotransferase 26 U/L (12-78); Albumin Level 3.4 g/dl (3.5-5.0); Albumin/Globulin Ratio 1.2 (1.1-1.8); Alkaline Phosphatase 86 U/L (38-126); Anion Gap 8.9 mEq/L (5-15); Aspartate Amino Transferase 26 U/L (17-59); Bilirubin,Total 1.2 mg/dl (0.2-1.3); Calcium 9.2 mg/dl (8.4-10.2); Carbon Dioxide 25 mmol/L (22.0-30.0); Globulin 2.9 g/dL (1.3-3.2); Glucose 120 mg/dl (74-100); Total Protein,Serum 6.3 g/dl (6.3-8.2)
[2023-12-11 08:32] LABS: Basophils % 0.2 % (0.1-2.0); Eosinophils # 0.1 K/mm3 (0.0-0.4); Eosinophils % 0.5 % (0.1-12.0); Hematocrit 30.1 % (42.0-52.0); Hemoglobin 10.5 g/dL (14.1-18.0); Lymphocytes # 1.3 K/mm3 (0.7-4.5); Mean Corpuscular HGB Conc 34.8 g/dL (31.8-35.4); Mean Corpuscular Hemoglobin 35.9 pg (27.0-31.2); Mean Corpuscular Volume 103.2 fl (80-94); Mean Platelet Volume 8.6 fl (7.4-10.4); Monocytes # 0.4 K/mm3 (0.1-1.0); Monocytes % 2.8 % (1.7-9.3); Neutrophils # 10.9 K/mm3 (1.8-7.8); Neutrophils % 86.6 % (37.0-80.0); Platelet Count 194 K/mm3 (142-424); Red Blood Count 2.92 M/mm3 (4.60-6.20); Red Cell Distribution Width 13.8 % (11.5-17.5); White Blood Count 12.6 K/mm3 (4.8-10.8)
[2023-12-11 08:34] LABS: MANUAL DIFFERENTIAL MANUAL DIFFERENTIAL (MANUAL DIFF)
[2023-12-11 08:44] LABS: Magnesium 1.9 mg/dl (1.6-2.3)
[2023-12-11 08:48] LABS: Potassium 2.9 mmoL/L (3.5-5.1)
--- NOTE | 2023-12-11 08:53 | PC.NURSE ---
pacheco in lab called RN for a critical potassium of 2.9. MD notified. oral potassium is the plan.
[2023-12-11] MEDS: AMLODIPINE 5MG TABLET 5 MG PO (09:43)
[2023-12-11] MEDS: SENNOSIDES 8.6MG/DOCUSATE 50MG TABLET 1 TAB PO ×2 (09:43→20:28)
[2023-12-11] MEDS: HEPARIN SODIUM 5,000 UNIT/ML VIAL 5000 UNIT SQ ×2 (09:44→20:26)
[2023-12-11] MEDS: FINASTERIDE 5MG TABLET 5 MG PO (09:44)
[2023-12-11] MEDS: LISINOPRIL 10MG TABLET 10 MG PO (09:44)
[2023-12-11 09:49] LABS: Anisocytosis 1+; Lymphocytes % 12 % (10-50); Macrocytosis 1+; Monocytes % 2 % (2-9); Neutrophils % 86 % (42-76); Platelet Estimate Normal; Total Cells Counted 100
[2023-12-11] MEDS: MAGNESIUM OXIDE 400MG TABLET 400 MG PO ×2 (10:20→20:27)
--- NOTE | 2023-12-11 10:40 | EXP.SURG.PN ---
Subjective Patient reports: no new complaints, pain is less, flatus and no bowel movement Narrative: Passing gas but some soreness, no BM for 48 hours Exam Data for Last 24 hours Vital signs and Labs for Last 24 Hours: Temp Pulse Resp BP Pulse Ox O2 Del Method O2 Flow Rate 98.1 F 102 H 18 164/74 H 97 Room Air 1 12/11/23 08:00 12/11/23 08:00 12/11/23 08:00 12/11/23 08:00 12/11/23 08:00 12/11/23 09:00 12/09/23 03:00 Laboratory Results - last 24 hr 12/11/23 07:55: WBC 12.6 H, RBC 2.92 L, Hgb 10.5 L, Hct 30.1 L, MCV 103.2 H, MCH 35.9 H, MCHC 34.8, RDW 13.8, Plt Count 194, MPV 8.6, Neut % (Auto) 86.6 H, Lymph % (Auto) 10.0, [place] % (Auto) 2.8, Eos % (Auto) 0.5, Baso % (Auto) 0.2, Neut # (Auto) 10.9 H, Lymph # (Auto) 1.3, [place] # (Auto) 0.4, Eos # (Auto) 0.1, Baso # (Auto) 0.0, Total Counted 100, Neutrophils % (Manual) 86 H, Lymphocytes % (Manual) 12, Monocytes % (Manual) 2, Platelet Estimate Normal, Anisocytosis 1+, Macrocytosis 1+, Sodium 139, Potassium 2.9 L*, Chloride 108 H, Carbon Dioxide 25, Anion Gap 8.9, BUN 24 H, Creatinine 1.10, Estimated Creat Clear 51, Estimated GFR 63, Est GFR ( Amer) 77, Glucose 120 H, Calcium 9.2, Magnesium 1.9, Total Bilirubin 1.2, AST 26 D, ALT 26, Alkaline Phosphatase 86, Total Protein 6.3, Albumin 3.4 L D, Globulin 2.9, Albumin/Globulin Ratio 1.2 I & O for Last 24 hours: Intake & Output 12/08/23 12/09/23 12/10/23 12/11/23 23:59 23:59 23:59 23:59 Intake Total 500 / 500 1600 / 1600 1640 / 1640 600 / 600 Output Total 1600 / 1600 1200 / 1200 0 / 0 0 / 0 Balance -1100 / -1100 400 / 400 1640 / 1640 600 / 600 Weight 161 lb 4 oz 168 lb 168 lb 1.6 oz 169 lb 8 oz *Routine Abdominal Exam Abdominal: Present soft and normoactive bowel sounds; Absent tenderness or distended Progress Note: A&P Assessment and plan (1) SBO (small bowel obstruction): Problem details: Still passing gas but no BM. Status: Acute Assessment and plan: Will go very slow with diet today until he has a BM. Will allow fulls and give one dose of mineral oil. Continue ambulation. (2) BPH (benign prostatic hyperplasia): Status: Acute (3) Hypertension: Status: Acute (4) JULIAN (acute kidney injury): Status: Acute
[2023-12-11] MEDS: KETOROLAC 30MG/ML VIAL 30 MG IV ×2 (11:01→20:28)
[2023-12-11] MEDS: SODIUM CHLORIDE 0.9% 10ML FLUSH SYRINGE 10 ML IV (11:02)
[2023-12-11] MEDS: MINERAL OIL 30 ML UDC PO (11:10)
--- NOTE | 2023-12-11 11:37 | EXP.ACUTE.PN ---
Subjective *Date: 12/11/23 *Time: 11:37 Interval history: An episode of bloating yesterday afternoon, started passing gas and felt better. Ambulating independently. Tolerating clear liquids. No nausea or emesis. Afebrile. Medical Exam Vital signs and Labs for Last 24 Hours: Vital Signs Temp Pulse Resp BP Pulse Ox O2 Del Method 12/11/23 10:54 Room Air 12/11/23 09:00 Room Air 12/11/23 08:00 98.1 F 102 H 18 164/74 H 97 Room Air 12/11/23 08:00 Room Air 12/11/23 07:22 98.7 F 12/11/23 06:40 Room Air 12/11/23 05:00 Room Air 12/11/23 04:33 97.8 F 83 18 165/73 H 92 L Room Air 12/11/23 03:00 Room Air 12/11/23 00:59 Room Air 12/10/23 23:00 Room Air 12/10/23 21:00 Room Air 12/10/23 19:53 92 L Room Air 12/10/23 19:51 97.5 F L 91 H 17 156/88 H 92 L Room Air 12/10/23 18:45 Room Air 12/10/23 17:00 Room Air 12/10/23 16:00 97.9 F 87 20 157/81 H 92 L Room Air 12/10/23 15:00 Room Air 12/10/23 13:00 Room Air Intake and Output 12/10/23 12/11/23 12/11/23 23:59 07:59 15:59 Intake Total 600 / 600 Output Total 0 / 0 0 / 0 0 / 0 Balance 0 / 1640 0 / 600 600 / 600 Intake: Intake, Oral Amount 600 / 600 Output: Output, Urine Amount 0 / 0 0 / 0 0 / 0 Other: Number of Unmeasured Voids 1 1 Weight 76.884 kg Patient Weight 12/11/23 23:59 Weight 76.884 kg Laboratory Results - last 24 hr 12/11/23 07:55: WBC 12.6 H, RBC 2.92 L, Hgb 10.5 L, Hct 30.1 L, MCV 103.2 H, MCH 35.9 H, MCHC 34.8, RDW 13.8, Plt Count 194, MPV 8.6, Neut % (Auto) 86.6 H, Lymph % (Auto) 10.0, [place] % (Auto) 2.8, Eos % (Auto) 0.5, Baso % (Auto) 0.2, Neut # (Auto) 10.9 H, Lymph # (Auto) 1.3, [place] # (Auto) 0.4, Eos # (Auto) 0.1, Baso # (Auto) 0.0, Total Counted 100, Neutrophils % (Manual) 86 H, Lymphocytes % (Manual) 12, Monocytes % (Manual) 2, Platelet Estimate Normal, Anisocytosis 1+, Macrocytosis 1+, Sodium 139, Potassium 2.9 L*, Chloride 108 H, Carbon Dioxide 25, Anion Gap 8.9, BUN 24 H, Creatinine 1.10, Estimated Creat Clear 51, Estimated GFR 63, Est GFR ( Amer) 77, Glucose 120 H, Calcium 9.2, Magnesium 1.9, Total Bilirubin 1.2, AST 26 D, ALT 26, Alkaline Phosphatase 86, Total Protein 6.3, Albumin 3.4 L D, Globulin 2.9, Albumin/Globulin Ratio 1.2 I & O for Labs for Last 24 Hours: Intake & Output 12/08/23 12/09/23 12/10/23 12/11/23 23:59 23:59 23:59 23:59 Intake Total 500 / 500 1600 / 1600 1640 / 1640 600 / 600 Output Total 1600 / 1600 1200 / 1200 0 / 0 0 / 0 Balance -1100 / -1100 400 / 400 1640 / 1640 600 / 600 Weight 73.142 kg 76.204 kg 76.249 kg 76.884 kg Constitutional: Present no acute distress, average body habitus, chronically ill appearing and cooperative Head: Present atraumatic and normocephalic ENT: Present normal exam Respiratory: Present normal respiratory effort; Absent respiratory distress, rhonchi, wheezes or crackles Cardiac: Present Reg Rate and Rhythm GI: Present soft, distention, tenderness (Stable) and normal bowel sounds Extremities: Present normal inspection and full ROM Skin: Present intact; Absent erythema Neuro: Present Grossly Intact, alert, awake, oriented x 3 and moves all extremities Assessment and Plan *Assessment and plan (1) SBO (small bowel obstruction): Problem Comment: Still passing gas but no BM. Status: Acute Category: Medical Code(s): K56.609 - Unspecified intestinal obstruction, unspecified as to partial versus complete obstruction (2) BPH (benign prostatic hyperplasia): Status: Acute Qualifiers: Lower urinary tract symptom presence: unspecified whether lower urinary tract symptoms present Qualified Code(s): N40.0 - Benign prostatic hyperplasia without lower urinary tract symptoms Category: Medical Code(s): N40.0 - Benign prostatic hyperplasia without lower urinary tract symptoms (3) Hypertension: Status: Acute Category: Medical Code(s): I10 - Essential (primary) hypertension (4) JULIAN (acute kidney injury): Status: Acute Category: Medical Code(s): N17.9 - Acute kidney failure, unspecified (5) Hypokalemia: Status: Acute Category: Medical Code(s): E87.6 - Hypokalemia Plan This is an 88-year-old male that presents to the ED with abdominal pain and imaging identifies small bowel obstruction. Previous abdominal surgery 10 to 12 years ago, and right inguinal herniography noted. Patient had NG tube placed 12/05/2023 for management of small bowel obstruction. Surgery consulted and assisting with care. Continues to require inpatient management. Status post surgery on 12/07. Omental band released. Doing better. Continue clear liquid diet today. Addressing bowels with bowel regimen. Surgery assisting with care. Problems addressed as follows: Small bowel obstruction ?12/05/2023 NG tube placed, removed today. -Discussed case with surgery this morning, plan to continue clear liquids. status post surgery 12/07. Had scar tissue causing obstruction. Seems to be having relief after lysing adhesions/scar tissue. -Monitor bowel function. Slowly advance diet. Bowel regimen with docusate/senna twice daily. Surgery administering mineral oil today. -Reglan 5 mg as needed every 6 hours for nausea and to promote gastric motility Acute kidney injury Resolved, creatinine 1.1, BUN 24. Potassium 2.9. Potassium replacement 20 mEq 3 times a day. Repeat potassium level this evening Repeat CBC, CMP, magnesium ordered for the morning. White cell count improving, down from 16-12.9. likely reactive. Hemoglobin 10.5 Hypertensive urgency -Remains hypertensive with systolics 160-180. Increase amlodipine to 10 mg daily. Increase lisinopril to 20 mg twice daily. Clear liquid Full Code Pantoprazole 40 mg IV daily Heparin 5000 units SQ twice daily
[2023-12-11] MEDS: POTASSIUM CHLORIDE 20MEQ TAB 20 MEQ PO ×2 (12:12→20:27)
[2023-12-11 16:00] VITALS: BP 163/68; PULSE 86; RESP 16; TEMP 36.8; O2SAT 94
--- NOTE | 2023-12-11 16:38 | PC.NURSE ---
pt is alert & oriented x4. pt has active bowel sounds, abdomen soft and nontender, lung sounds clear. pt has had elevated BP this shift, but he says it is always high . BP meds administered per MAR. critical lab called today of a potassium of 2.9. notified and oral mag and potassium administered per MAR. Pt was given mineral oil today for his constipation and has since has 2 bm. he has been tolerating full liquids well with no complaints of nausea or vomiting. pt has ambulated the halls multiple times this shift and has tolerated well. tordol given per MAR this am due to pt complaints of abdominal area where surgery took place. pt responded to medication. surgical site c/d/i.
--- NOTE | 2023-12-11 17:04 | PC.NURSE ---
LAB NOTIFIED RN OF CRITICAL LAB VALUE OF POTASSIUM OF 3. MD NOTIFIED. ORDER FOR IV POTASSIUM TO BE PUT IN BY .
[2023-12-11] MEDS: KCl 20mEq/100ml 100 ML 50 MEQ IV (18:24)
[2023-12-11 19:57] VITALS: BP 177/86; PULSE 97; RESP 18; TEMP 36.6; O2SAT 93
[2023-12-11 20:00] VITALS: O2SAT 93
[2023-12-11] MEDS: FAMOTIDINE 20MG TABLET 20 MG PO (20:26)
[2023-12-11] MEDS: PANTOPRAZOLE 40MG VIAL 40 MG IV (20:27)
[2023-12-11] MEDS: MELATONIN 5MG TABLET 5 MG PO (20:27)
[2023-12-11] MEDS: LISINOPRIL 20MG TABLET 20 MG PO (20:27)
[2023-12-12 04:00] VITALS: BMI 22.1
--- NOTE | 2023-12-12 04:27 | PC.NURSE ---
88 yo male pt admitted with SBO, s/p diagnostic lap. Pt has had restful night. He has tolerated full liquid diet although he has not taken in a lot . He has slept well throughout most of shift. Pt was medicated with pain meds early in the shift due to abdominal discomfort. He has had 4 reported BMs since mineral oil given yesterday. BP has remained slightly elevated. K+ run completed and oral meds given
[2023-12-12 05:33] VITALS: BP 151/66; PULSE 76; RESP 18; TEMP 36.7; O2SAT 93
--- NOTE | 2023-12-12 06:27 | XR_ITS ---
FINAL REPORT CLINICAL HISTORY: BOWEL OBSTRUCTION COMPARISON: 12/10/2023 FINDINGS: There are increasing densities in the bilateral lung bases, probably due to atelectasis. There are small pleural effusions. There is no evidence of pneumothorax. The mediastinum is unremarkable. There has been interval removal of the NG tube. The heart size is normal. There is persistent gaseous distention of the small bowel, moderately improved compared to the prior study. There is no free intraperitoneal air. no abdominal radiopacities are seen in the abdomen. IMPRESSION: Improved small bowel obstruction without evidence of pneumoperitoneum. Reviewed, Interpreted and Dictated by Suleman Dupont MD Transcribed by Samantha Ruiz Authenticated and [facility]
[2023-12-12 06:32] LABS: Basophils % 0.2 % (0.1-2.0); Eosinophils # 0.1 K/mm3 (0.0-0.4); Eosinophils % 1.9 % (0.1-12.0); Hematocrit 24.7 % (42.0-52.0); Lymphocytes # 0.8 K/mm3 (0.7-4.5); Lymphocytes % 11.5 % (10-50); Mean Corpuscular HGB Conc 36.8 g/dL (31.8-35.4); Mean Corpuscular Volume 105.9 fl (80-94); Monocytes # 0.3 K/mm3 (0.1-1.0); Monocytes % 4.6 % (1.7-9.3); Neutrophils # 5.8 K/mm3 (1.8-7.8); Neutrophils % 81.8 % (37.0-80.0); Platelet Count 207 K/mm3 (142-424); Red Blood Count 2.33 M/mm3 (4.60-6.20); Red Cell Distribution Width 13.6 % (11.5-17.5); White Blood Count 7.1 K/mm3 (4.8-10.8)
[2023-12-12 06:54] LABS: Hemoglobin 9.1 g/dL (14.1-18.0)
[2023-12-12 07:02] LABS: Alanine Aminotransferase 23 U/L (12-78); Albumin Level 2.6 g/dl (3.5-5.0); Alkaline Phosphatase 87 U/L (38-126); Anion Gap 8.4 mEq/L (5-15); Aspartate Amino Transferase 25 U/L (17-59); Blood Urea Nitrogen 22 mg/dl (9-20); Calcium 8.6 mg/dl (8.4-10.2); Carbon Dioxide 24 mmol/L (22.0-30.0); Chloride 108 mmol/L (98-107); Creatinine Clearance Estimated 58 mL/min (50-200); Estimated Glomerular Filt Rate 71 ml/min (>60); GFR (African American) 86 ML/MIN (>60); Globulin 2.5 g/dL (1.3-3.2); Glucose 107 mg/dl (74-100); Potassium 3.4 mmoL/L (3.5-5.1); Sodium 137 mmol/L (136-145); Total Protein,Serum 5.1 g/dl (6.3-8.2)
--- NOTE | 2023-12-12 07:18 | EXP.DC.SUM ---
General Admission date:: 12/03/23 Discharge date: 12/12/23 HPI HPI HPI: Patient is an 88-year-old male with prior history of bowel obstruction reportedly. He presented to the emergency department at [facility] on 12/03/2023 with onset of abdominal pain beginning approximately 7 AM that morning with progression throughout the day. He did have a bowel movement. No change in pain. He had nausea. No diarrhea. Subjective fever. He was evaluated in the emergency department and had a CT scan performed without contrast which revealed multiple loops of mildly dilated small bowel with air-fluid levels. The distal small bowel is decompressed. This may represent obstruction or ileus. Multiple gallstones in the gallbladder. Patient had a open right inguinal hernia repair by Dr. Middleton in July 2021 at which time he had a complex indirect hernia with thin hernia sac. He apparently did have a laparoscopy for bowel obstruction approximately a decade ago at [facility] at which time reportedly no obstruction was found. Patient was admitted for inpatient management of bowel obstruction on 12/03/2023. He has remained an inpatient. He describes some ongoing pain. He has had some nausea which she describes as acid reflux . He does not have an NG tube. Surgical consultation was obtained this morning on 12/05/2023. Hospital Course Hospital Course Hospital Course: This is an 88-year-old male that presents to the ED with abdominal pain and imaging identifies small bowel obstruction. Previous abdominal surgery 10 to 12 years ago, and right inguinal herniography noted. Patient had NG tube placed 12/05/2023 for management of small bowel obstruction. Surgery consulted and assisting with care. Patient continued of obstruction. Was taken for laparoscopic exploration on 12/07. Found to have an omental band that was released. Patient had improvement in symptoms thereafter. Diet was advanced. Having bowel movements and passing gas. Minimal pain, mainly at sites of trocar insertion. Stable to discharge home. Close follow-up with surgery as an outpatient. Problems addressed as follows: Small bowel obstruction ?12/05/2023 NG tube placed, managed conservatively. Serial imaging and exams showed no transition point. Persisted symptoms however. Unable to advance diet. Eventually decision was made with the assistance of surgery to proceed with surgical intervention and exploration. Patient taken for surgery on 12/07. Had scar tissue causing obstruction. Seem to have an adhesion or band of omentum that was obstructing small intestine. This tissue was lysed. Patient had significant improvement thereafter. Able to gradually advance diet. Having bowel movements, passing gas, no more nausea or vomiting. Tolerating full liquid diet. Recommend transitioning to regular diet as tolerated at home. Close follow-up with surgery in the coming week. Continue bowel regimen to maintain soft stools per med rec. Acute kidney injury Present on admission with creatinine 1.4. Kidney function improved to baseline with creatinine of 1, BUN 22 on day of discharge. Is having low electrolytes with low potassium. Supplementing orally. Will continue supplementation for few days after discharging home. Would benefit from repeat labs at follow-up to monitor kidney function and electrolytes. White cell count also was elevated during admission, normalized by day of discharge without antibiotics. Likely reactive. Hemoglobin remained stable. Hypertensive urgency -Patient's blood pressure was labile during admission. Having systolics in the 160s to 180s when unable to take oral medications. Showed improvement after starting oral medication. Increased dose of lisinopril during admission with improvement in blood pressure. Patient states however that on his current regimen his blood pressure is well-controlled at home. Did not want to go home on higher dose medication at this time. I agreed with him that we can defer this change to follow-up with his PCP. Recommend rechecking his blood pressure at home in the outpatient setting to see if he needs further adjustment. Appeared asymptomatic from hypertension. Exam Data for Last 24 hours Vital signs and Labs for Last 24 Hours: Temp Pulse Resp BP Pulse Ox O2 Del Method O2 Flow Rate 98.0 F 76 18 151/66 H 93 L Room Air 1 12/12/23 05:33 12/12/23 05:33 12/12/23 05:33 12/12/23 05:33 12/12/23 05:33 12/12/23 06:41 12/09/23 03:00 Laboratory Results - last 24 hr 12/11/23 07:55: WBC 12.6 H, RBC 2.92 L, Hgb 10.5 L, Hct 30.1 L, MCV 103.2 H, MCH 35.9 H, MCHC 34.8, RDW 13.8, Plt Count 194, MPV 8.6, Neut % (Auto) 86.6 H, Lymph % (Auto) 10.0, [place] % (Auto) 2.8, Eos % (Auto) 0.5, Baso % (Auto) 0.2, Neut # (Auto) 10.9 H, Lymph # (Auto) 1.3, [place] # (Auto) 0.4, Eos # (Auto) 0.1, Baso # (Auto) 0.0, Total Counted 100, Neutrophils % (Manual) 86 H, Lymphocytes % (Manual) 12, Monocytes % (Manual) 2, Platelet Estimate Normal, Anisocytosis 1+, Macrocytosis 1+, Sodium 139, Potassium 2.9 L*, Chloride 108 H, Carbon Dioxide 25, Anion Gap 8.9, BUN 24 H, Creatinine 1.10, Estimated Creat Clear 51, Estimated GFR 63, Est GFR ( Amer) 77, Glucose 120 H, Calcium 9.2, Magnesium 1.9, Total Bilirubin 1.2, AST 26 D, ALT 26, Alkaline Phosphatase 86, Total Protein 6.3, Albumin 3.4 L D, Globulin 2.9, Albumin/Globulin Ratio 1.2 12/11/23 16:40: Potassium 3.0 L 12/12/23 06:05: WBC 7.1 D, RBC 2.33 L, Hgb 9.1 L D, Hct 24.7 L, MCV 105.9 H, MCH 39.0 H, MCHC 36.8 H, RDW 13.6, Plt Count 207, MPV 9.0, Neut % (Auto) 81.8 H, Lymph % (Auto) 11.5, [place] % (Auto) 4.6, Eos % (Auto) 1.9, Baso % (Auto) 0.2, Neut # (Auto) 5.8, Lymph # (Auto) 0.8, [place] # (Auto) 0.3, Eos # (Auto) 0.1, Baso # (Auto) 0.0, Sodium 137, Potassium 3.4 L, Chloride 108 H, Carbon Dioxide 24, Anion Gap 8.4, BUN 22 H, Creatinine 1.00, Estimated Creat Clear 58, Estimated GFR 71, Est GFR ( Amer) 86, Glucose 107 H, Calcium 8.6, Magnesium 2.0, Total Bilirubin 1.0, AST 25, ALT 23, Alkaline Phosphatase 87, Total Protein 5.1 L, Albumin 2.6 L D, Globulin 2.5, Albumin/Globulin Ratio 1.0 L I & O for Last 24 hours: Intake & Output 12/09/23 12/10/23 12/11/23 12/12/23 23:59 23:59 23:59 23:59 Intake Total 1600 / 1600 1640 / 1640 1240 / 1240 Output Total 1200 / 1200 0 / 0 0 / 0 0 / 0 Balance 400 / 400 1640 / 1640 1240 / 1240 0 / 0 Weight 76.204 kg 76.249 kg 76.884 kg 78.154 kg Constitutional Constitutional: no acute distress, average body habitus and cooperative *Routine HEENT Exam Head: Present normocephalic Eye: Present EOMI and PERRL ENT: Present mucous membranes moist *Routine Neck Exam Neck: Present supple; Absent lymphadenopathy *Routine Respiratory Exam Respiratory: Present CTA bilaterally; Absent rhonchi, wheezes or crackles *Routine Cardiovascular Exam Cardiovascular: Present RRR *Routine Abdominal Exam Abdominal: Present soft, normoactive bowel sounds and tenderness (minimal) *Routine Rectal Exam Patient deferred: visual exam *Routine Exam Patient deferred: penile exam *Routine Extremities Exam Extremities: Absent cyanosis, clubbing or edema *Routine Skin Exam Skin: Present warm; Absent rash *Routine Neurological Exam Neurological: Present alert, oriented X3 and moving all extremities; Absent altered mental status Results Data Completed and Pending Labs on day of discharge: Labs from last 24 hours 12/12/23 12/11/23 12/11/23 06:05 16:40 07:55 WBC 7.1 D 12.6 H RBC 2.33 L 2.92 L Hgb 9.1 L D 10.5 L Hct 24.7 L 30.1 L MCV 105.9 H 103.2 H MCH 39.0 H 35.9 H MCHC 36.8 H 34.8 RDW 13.6 13.8 Plt Count 207 194 MPV 9.0 8.6 Neut % (Auto) 81.8 H 86.6 H Lymph % (Auto) 11.5 10.0 [place] % (Auto) 4.6 2.8 Eos % (Auto) 1.9 0.5 Baso % (Auto) 0.2 0.2 Neut # (Auto) 5.8 10.9 H Lymph # (Auto) 0.8 1.3 [place] # (Auto) 0.3 0.4 Eos # (Auto) 0.1 0.1 Baso # (Auto) 0.0 0.0 Total Counted 100 Neutrophils % (Manual) 86 H Lymphocytes % (Manual) 12 Monocytes % (Manual) 2 Platelet Estimate Normal Anisocytosis 1+ Macrocytosis 1+ Sodium 137 139 Potassium 3.4 L 3.0 L 2.9 L* Chloride 108 H 108 H Carbon Dioxide 24 25 Anion Gap 8.4 8.9 BUN 22 H 24 H Creatinine 1.00 1.10 Estimated Creat Clear 58 51 Estimated GFR 71 63 Est GFR ( Amer) 86 77 Glucose 107 H 120 H Calcium 8.6 9.2 Magnesium 2.0 1.9 Total Bilirubin 1.0 1.2 AST 25 26 D ALT 23 26 Alkaline Phosphatase 87 86 Total Protein 5.1 L 6.3 Albumin 2.6 L D 3.4 L D Globulin 2.5 2.9 Albumin/Globulin Ratio 1.0 L 1.2 DS: Diagnosis Discharge Diagnosis (1) SBO (small bowel obstruction): Status: Acute Code(s): K56.609 - Unspecified intestinal obstruction, unspecified as to partial versus complete obstruction Problem details: Still passing gas but no BM. (2) BPH (benign prostatic hyperplasia): Status: Acute Code(s): N40.0 - Benign prostatic hyperplasia without lower urinary tract symptoms Qualifiers: Lower urinary tract symptom presence: unspecified whether lower urinary tract symptoms present Qualified Code(s): N40.0 - Benign prostatic hyperplasia without lower urinary tract symptoms (3) Hypertension: Status: Acute Code(s): I10 - Essential (primary) hypertension (4) JULIAN (acute kidney injury): Status: Acute Code(s): N17.9 - Acute kidney failure, unspecified (5) Hypokalemia: Status: Acute Code(s): E87.6 - Hypokalemia Meds Home Medications and Allergies Home Medications Medication Instructions Recorded Confirmed Type esomeprazole magnesium 40 mg 40 mg PO DAILY 05/26/17 12/04/23 History capsule,delayed release finasteride 5 mg tablet 5 mg PO DAILY 05/26/17 12/04/23 History doxazosin 4 mg tablet 4 mg PO DAILY 12/04/23 12/04/23 History famotidine 40 mg tablet 40 mg PO HS 12/04/23 12/04/23 History lisinopril 20 mg tablet 20 mg PO BID 30 days #60 tabs 12/12/23 Rx potassium chloride 20 mEq 20 meq PO BID 10 days #20 tabs 12/12/23 Rx tablet,extended release(part/cryst) (Klor-Con M) sennosides 8.6 mg-docusate sodium 1 tab PO HS #30 tabs 12/12/23 Rx 50 mg tablet (Stimulant Laxative Plus) New Prescriptions to Start Prescriptions: lisinopril Gera Johnston potassium chloride [Klor-Con M20] Gera Johnston sennojamshids-docusate sodium [Stimulant Laxative Plus] Gera Johnston Allergies Allergy/AdvReac Type Severity Reaction Status Date / Time Sulfa (Sulfonamide Allergy Verified 09/02/21 12:45 Antibiotics) Discharge Plan Disposition Patient Disposition: Home, Self-Care Condition: Good Discharge Order Discharge Orders: Discharge Order (Routine); Ordered 12/12/23 Ordered By: Gera Johnston Follow up Plan Follow up with: Singh Liz MD [Primary Care Provider] - 12/20/23 10:00 am Raffi Emanuel MD [Staff Physician] - 12/27/23 1:00 pm Prescriptions/Medication Reconciliation: New lisinopril 20 mg Tablet 20 mg PO BID 30 Days Qty: 60 0RF sennosides-docusate sodium [Stimulant Laxative Plus] 8.6-50 mg Tablet 1 tab PO HS Qty: 30 0RF potassium chloride [Klor-Con M20] 20 mEq Tablet,Er Particles/Crystals 20 meq PO BID 10 Days Qty: 20 0RF Continued esomeprazole magnesium 40 MG capsule,delayed release(DR/EC) 40 mg PO DAILY finasteride 5 MG tablet 5 mg PO DAILY famotidine 40 mg tablet 40 mg PO HS doxazosin 4 mg tablet 4 mg PO DAILY Discontinued lisinopril 10 MG tablet 10 mg PO BID Problem Reconciliation Problems Reviewed?: Yes Patient Discharge Instructions ACTIVITY: No heavy lifting DIET: continue same diet and other Additional Instructions: LOW RESIDUE DIET Patient Instructions: DI for Small Bowel Obstruction, DI for Exploratory Laparotomy, DI for Surgical Site Infection, DI for Acute Kidney Injury Providers Primary Care Provider: Singh Liz Admit Provider: Lenny Fisher Attending Provider: Lenny Fisher
[2023-12-12 08:00] VITALS: BP 150/68; PULSE 88; RESP 16; TEMP 36.9; O2SAT 94
[2023-12-12] MEDS: AMLODIPINE 10MG TABLET 10 MG PO (09:07)
[2023-12-12] MEDS: FINASTERIDE 5MG TABLET 5 MG PO (09:08)
[2023-12-12] MEDS: LISINOPRIL 20MG TABLET 20 MG PO (09:08)
[2023-12-12] MEDS: MAGNESIUM OXIDE 400MG TABLET 400 MG PO (09:09)
[2023-12-12] MEDS: POTASSIUM CHLORIDE 20MEQ TAB 20 MEQ PO (09:09)
[2023-12-12] MEDS: SENNOSIDES 8.6MG/DOCUSATE 50MG TABLET 1 TAB PO (09:09)
[2023-12-12] MEDS: HEPARIN SODIUM 5,000 UNIT/ML VIAL 5000 UNIT SQ (09:16)
--- NOTE | 2023-12-12 14:14 | P.PN_ITS ---
Subjective Narrative: Patient is doing well. No complaints. Tolerating diet. Exam Data for Last 24 hours Vital signs and Labs for Last 24 Hours: Temp Pulse Resp BP Pulse Ox O2 Del Method O2 Flow Rate 98.5 F 88 16 150/68 H 94 L Room Air 1 12/12/23 08:00 12/12/23 08:00 12/12/23 08:00 12/12/23 08:00 12/12/23 08:00 12/12/23 13:00 12/09/23 03:00 Laboratory Results - last 24 hr 12/11/23 16:40: Potassium 3.0 L 12/12/23 06:05: WBC 7.1 D, RBC 2.33 L, Hgb 9.1 L D, Hct 24.7 L, MCV 105.9 H, MCH 39.0 H, MCHC 36.8 H, RDW 13.6, Plt Count 207, MPV 9.0, Neut % (Auto) 81.8 H, Lymph % (Auto) 11.5, [place] % (Auto) 4.6, Eos % (Auto) 1.9, Baso % (Auto) 0.2, Neut # (Auto) 5.8, Lymph # (Auto) 0.8, [place] # (Auto) 0.3, Eos # (Auto) 0.1, Baso # (Auto) 0.0, Sodium 137, Potassium 3.4 L, Chloride 108 H, Carbon Dioxide 24, Anion Gap 8.4, BUN 22 H, Creatinine 1.00, Estimated Creat Clear 58, Estimated GFR 71, Est GFR ( Amer) 86, Glucose 107 H, Calcium 8.6, Magnesium 2.0, Total Bilirubin 1.0, AST 25, ALT 23, Alkaline Phosphatase 87, Total Protein 5.1 L, Albumin 2.6 L D, Globulin 2.5, Albumin/Globulin Ratio 1.0 L I & O for Last 24 hours: Intake & Output 12/10/23 12/11/23 12/12/23 12/13/23 11:59 11:59 11:59 11:59 Intake Total 2240 / 2240 1000 / 1000 920 / 920 300 / 300 Output Total 0 / 0 0 / 0 0 / 0 Balance 2240 / 2240 1000 / 1000 920 / 920 300 / 300 Weight 168 lb 1.6 oz 169 lb 8 oz 172 lb 4.8 oz *Routine Abdominal Exam Abdominal: Present soft; Absent tenderness Progress Note: A&P Assessment and plan (1) SBO (small bowel obstruction): Problem details: Still passing gas but no BM. Status: Acute Assessment and plan: Discharge home today. (2) BPH (benign prostatic hyperplasia): Status: Acute (3) Hypertension: Status: Acute (4) JULIAN (acute kidney injury): Status: Acute (5) Hypokalemia: Status: Acute
--- NOTE | 2023-12-13 10:46 | CARE MANAGER ---
Called and spoke with patient regarding recent discharge. Patient stated that he is doing well, has started new medication and aware of scheduled f/u appts. No concerns voiced at time of call.
== END 2023-12-12 14:43 | disposition home or self-care (01) | DRG 336 ==
LOC: UTC 13:46 → ER 14:10 → 2ND 18:04
PROVIDERS: Internal Medicine Adolescent Medicine; Surgery; Admitting Provider Family Medicine; Emergency Provider Emergency Medicine; PCP Family Medicine; Visit Provider Family Medicine
PROC: 0DNB4ZZ Release Ileum, Percutaneous Endoscopic Approach (ICD-10-PCS; CPT 49000; principal; 2023-12-08 12:00)
DX: K56.51 Intestinal adhesions [bands], with partial obstruction (principal); N17.9 Acute kidney failure, unspecified; I16.0 Hypertensive urgency; Z79.899 Other long term (current) drug therapy; E87.6 Hypokalemia; I11.0 Hypertensive heart disease with heart failure; N40.0 Benign prostatic hyperplasia without lower urinary tract symptoms
CPT/HCPCS: 44180; 36415; 74018; 74021; 74176; 74250; 80048; 80053; 81001; 83605; 83690; 83735; 84132; 84145; 85007; 85025; 85027; 93005; 93306; 99285; J3490; J0131; J0295; J1100; J1170; J1644; J1885; J2270; J2405; J2765; J3010; J3475; J3480; J7042; J7120; Q9963

== ENCOUNTER 2023-12-29 08:22 | Outpatient (CLI) | payer MEDICARE, SELFPAY ==
--- NOTE | 2023-12-29 08:23 | CT_ITS ---
FINAL REPORT TECHNIQUE: After the administration of intravenous contrast, axial images were obtained through the abdomen and pelvis by computed tomography. This study was performed with technique to keep radiation doses as low as reasonably achievable, (ALARA). Individualized dose reduction techniques using automated exposure control or adjustment of the MA and/or KV according to the patient's size were employed. CLINICAL HISTORY: post bowel resection COMPARISON: 12/03/2023 FINDINGS: Abdomen: The lung bases demonstrate bilateral lower lobe opacities, left greater than right, favor atelectasis. The liver is normal in size and attenuation. There is cholelithiasis with gallbladder wall thickening. The spleen is unremarkable. The adrenals are normal. The pancreas is unremarkable. The kidneys enhance appropriately. The aorta is normal in caliber. There is no free fluid or adenopathy. Moderate vascular calcifications are seen. Pelvis: There is been interval improvement in findings of previously seen small bowel obstruction. The appendix is not identified. There is a soft tissue focus in the right lower pelvis measuring 2.3 cm, similar to prior exam but of uncertain etiology. Findings could represent a mass or postoperative change. The urinary bladder is unremarkable. There are mildly enlarged right inguinal lymph nodes which are nonspecific, favor reactive. IMPRESSION: Improved small bowel obstruction. Persistent soft tissue in the right lower pelvis of uncertain etiology which could represent mass or postoperative change. Cholelithiasis with gallbladder wall thickening. Reviewed, Interpreted and Dictated by Raffi Manjarrez III, MD Transcribed by Kalli Mcneal Authenticated and [facility]
== END 2023-12-29 23:59 | disposition home or self-care (01) ==
LOC: RAD 08:23
PROVIDERS: PCP Family Medicine; Visit Provider Surgery
DX: R10.9 Unspecified abdominal pain (principal)
CPT/HCPCS: 74176

== ENCOUNTER 2024-12-04 09:10 | Outpatient (CLI) | payer MEDICARE, SELFPAY ==
--- OUTSIDE RECORDS SUMMARY | 2024-12-04 09:12 | XMS_ITS | Clinical Summary ---
Author Organization [facility] Address [address] [place] [address] Care Team Providers Care Security Agent Name Role Phone Tim Adams MD Primary Care Provider Kwadwo Martinez MD Unavailable [phone] Gary Jose MD Unavailable [phone] Devin Fairchild MD Unavailable Kwadwo Coelho MD Unavailable [phone] Fredo Briscoe MD Unavailable [phone] Allergies Active Allergy Reactions Criticality Noted Date Comments Levofloxacin Rash Low 04/29/2023 Sulfa Drugs Itching,Other - plea se document in the comment field,Rash Medium 11/21/2012 Medications esomeprazole (NexIUM) [address] capsule 04/15/2023 Active doxazosin (Cardura) 4 MG tablet 04/08/2023 Active finasteride (Proscar) 5 MG tablet Take 1 tablet (5 mg) by mouth 1 (one) time each day. 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 Family History Medical History Relation Name Comments Conversions - Other Father cardiac pacemaker Cancer Mother's Sister Breast cancer Sister Relation Name Status Comments Father Mother's Sister Sister Social History Tobacco Use Types Packs/Day Years Used Date Smoking Tobacco: Former Cigarettes Q uit: 1987 Smokeless Tobacco: Never Tobacco Cessation:Counseling Given: Not Answered Alcohol Use Standard Drinks/Week Comments No 0 (1 standard drink = 0.6 oz pur e alcohol) Sex and Gender Information Value Date Recorded Sex Assigned at Not on file Legal Sex Male 8:55 PM EDT Gender Identity Not on file Sexual Orientation Not on file Last Filed Vital Signs Vital Sign Reading Time Taken Comments Blood Pressure 222/85 04/29/2023 11:10 AM EST Pulse 101 06/01/2023 10:31 AM EST Temperature 36.5 C (97.7 F) 06/01/2023 10:31 AM EST Respiratory Rate - - Oxygen Saturation 97% 06/01/2023 10: 31 AM EST Inhaled Oxygen Concentration - - Weight 74.8 kg (164 lb 14.5 oz) 024 10:31 AM EST Height 188 cm (6' 2 ) 06/01/2023 10:31 AM EST Body Mass Index 21.17 06/01/2023 10:31 AM EST Plan of Treatment Health Maintenance Due Date Last Done Comments [facility]-Depression Screening 1936 [facility]-Medicare Annual Wellness (AWV) 1935 [facility]-Infant/Child/Adol SDOH Screenings 1935 [facility]- SDOH Screenings 01/30/1954 [facility]-Adult SDOH Screenings 01/30/1954 [facility]-Pneumococcal Vaccine: 50+ Years (1 of 2 - PCV) 01/30/1955 [facility]-Zoster Vaccines (1 of 2) 01/30/1955 [facility]-RSV Vaccine: 60+ Years or (1 - 1-dose 75+ series) 01/30/2011 [id number] Vaccine ( season) 2024 02/16/2023, 02/03/2022, 08/20/2021, Additional history exists [facility]-Influenza Vaccine (#1) 2025 01/23/2016 [facility]-DTaP,Tdap,and Td Vaccines (2 - Td or Tdap) 02/13/2028 02/12/2018 [facility]-Hepatitis A Vaccines Aged Out 10/06/2018, 03/23 No longer eligible based on patient's age to complete this topic HPV Vaccines Aged Out No longer eligi ble based on patient's age to complete this topic [facility]-HIB Vaccines Aged Out No longer e ligible based on patient's age to complete this topic [facility]-IPV Vaccines Aged Out No longer e ligible based on patient's age to complete this topic [facility]-Rotavirus Vaccines Aged Out No lo nger eligible based on patient's age to complete this topic Insurance [facility] MEDIC[facility] Care Teams Security Agent Relationship Specialty Start Date End Date Tim Adams MD [address] [place] [address] PCP - General 10/03/20 Kwadwo Martinez MD [address] [place] [id number] Referring Physician Neurology 04/28/23 Gary Jose MD [address] [place] [address] Otolaryngology 05/02/23 Devin Fairchild MD [address] [place], [place] [id number] 05/02/23 Kwadwo Coelho MD [address] [place], [place] [id number] 05/02/23 Fredo Briscoe MD [address] [place] [address] 05/02/23
--- OUTSIDE RECORDS SUMMARY | 2024-12-04 09:13 | XMS_ITS | Data Portability ---
Author Organization [facility] [place] BE[facility] Gregorio FOREST CLOSED Address [address] [place] [address] Care Team Providers Care Car Salesman Name Role Phone WINSOME COELHO Pictures Editor KULDEEP MASON Climbing Guide Assessment No assessment recorded. Plan of Treatment Reminders Order Date Submit Date Provider Last Modified By Organization Details Last Modified Time Details Appointments LEVEL 2 2024 01:15P M WINSOME COELHO MD Not available Not available Not available RECHECK 2024 01:00P M POWER WOLF MD Not available Not available Not available RECHECK 2025 11:10A M KULDEEP MASON MD Not available Not available Not available Lab urinalysi s panel, auto 2023 024 [email or web address] [facility], [address] [place] [address], [address], [place], [address], 04/22/2024 16:18:40 Referral None recorded. Procedures None recorded. Surgeries None recorded. Imaging None recorded. Medication Orders esomepraz ole magnesium 40 mg capsule,d elayed release 2024 025 [facility], [address] [place] [address], [address], [place], [address], 07/17/2024 12:27:09 famotidin e 40 mg tablet 2024 025 [facility], [facility] [address] [facility], [address], [place], [address], 07/17/2024 12:27:07 doxycycli ne monohydra te 100 mg capsule 2023 024 [facility], [address] [facility], [address], [place], [address], 04/22/2024 16:23:42 doxycycli ne monohydra te 100 mg capsule 2023 [facility], [address] [place] [address], [address], 04/22/2024 16:18:42 finasteri de 5 mg tablet 2023 [place] [facility], [address] [place] [address], [address], 04/22/2024 16:18:43 doxazosin 4 mg tablet 2023 [facility], [address] [place] [address], [address], 04/22/2024 16:18:43 Patient TargetsNo targets recorded. Patient Instructions Encounter Date Encounter Id Patient Instructions Last Modified By Organization Details Last Modified Time 10/26/2023 [id number] Repair hearing aid check. Patient reports broken geology scientist from the right aid. Problem identified: none The wax traps were replaced and ear molds were cleaned and the aids were placed in the dehumidifier. The geology scientist was replaced out of warranty. Listening check was good for both aids, no distortion or weakness was detected. Recommendations: Return in 6 months for another hearing aid check or sooner if problems arise. [email or web address] Not available 10/26/2023 11:29:16 12/01/2023 [id number] stable exam recheck 1 yr [email or web address] Not available 12/01/2023 15:06:00 04/18/2024 [id number] learning about depression [email or web address] Not available 04/22/2024 16:18:40 Reason for Referral None Reported. Results Created Date Observation Date Name Description Value Unit Range Abnormal Flag Note LastModifiedBy Organization Detail LastModifiedTime 04/18/20 24 04/18/2024 urina lysis panel , auto Unknown Analyte Clean Catch Not Available [facility] [address], [place], [address], 04/18/2024 15:01:48 04/18/20 24 04/18/2024 urina lysis panel , auto Unknown Analyte Yellow Not Available [facility] [address], [place], [address], 04/18/2024 15:01:48 04/18/20 24 04/18/2024 urina lysis panel , auto Unknown Analyte Clear Not Available [facility] [address], [place], [address], 04/18/2024 15:01:48 04/18/20 24 04/18/2024 urina lysis panel , auto Unknown Analyte 1.010 Not Available [facility] [address], [place], [address], 04/18/2024 15:01:48 04/18/20 24 04/18/2024 urina lysis panel , auto Unknown Analyte 1.003- 1.035 Not Available [facility] [address], [place], [address], 04/18/2024 15:01:48 04/18/20 24 04/18/2024 urina lysis panel , auto Unknown Analyte 5.0 Not Available [facility] [address], [place], [address], 04/18/2024 15:01:48 04/18/20 24 04/18/2024 urina lysis panel , auto Unknown Analyte 5.0-8. 0 Not Available [facility] [address], [place], [address], 04/18/2024 15:01:48 04/18/20 24 04/18/2024 urina lysis panel , auto Unknown Analyte Negati ve Not Available [facility] [address], [place], [address], 04/18/2024 15:01:48 04/18/2004/18/2024 urina lysis panel , auto Unknown Analyte Negati ve Not Available [facility] [address], [place], [address], 04/18/2024 15:01:48 04/18/2004/18/2024 urina lysis panel , auto Unknown Analyte Negati ve Not Available [facility] [address], [place], [address], 04/18/2024 15:01:48 04/18/20 24 04/18/2024 urina lysis panel , auto Unknown Analyte Negati ve Not Available [facility] [address], [place], [address], 04/18/2024 15:01:48 04/18/2004/18/2024 urina lysis panel , auto Unknown Analyte Negati ve Not Available [facility] [address], [place], [address], 04/18/2024 15:01:48 04/18/20 24 04/18/2024 urina lysis panel , auto Unknown Analyte Negati ve Not Available [facility] [address], [place], [address], 04/18/2024 15:01:48 04/18/20 24 04/18/2024 urina lysis panel , auto Unknown Analyte Normal Not Available [facility] [address], [place], [address], 04/18/2024 15:01:48 04/18/20 24 04/18/2024 urina lysis panel , auto Unknown Analyte Normal Not Available [facility] [address], [place], [address], 04/18/2024 15:01:48 04/18/20 24 04/18/2024 urina lysis panel , auto Unknown Analyte Negati ve Not Available [facility] [address], [place], [address], 04/18/2024 15:01:48 04/18/20 24 04/18/2024 urina lysis panel , auto Unknown Analyte Negati ve Not Available [facility] [address], [place], [address], 04/18/2024 15:01:48 04/18/20 24 04/18/2024 urina lysis panel , auto Unknown Analyte Normal Not Available [facility] [address], [place], [address], 04/18/2024 15:01:48 04/18/20 24 04/18/2024 urina lysis panel , auto Unknown Analyte Normal 1 mg/dl Not Available [facility] [address], [place], [address], 04/18/2024 15:01:48 04/18/20 24 04/18/2024 urina lysis panel , auto Unknown Analyte Negati ve Not Available [facility] [address], [place], [address], 04/18/2024 15:01:48 04/18/20 24 04/18/2024 urina lysis panel , auto Unknown Analyte Negati ve Not Available [facility] [address], [place], [address], 04/18/2024 15:01:48 04/18/20 24 04/18/2024 urina lysis panel , auto Unknown Analyte Negati ve Not Available [facility] [address], [place], [address], 04/18/2024 15:01:48 04/18/20 24 04/18/2024 urina lysis panel , auto Unknown Analyte Negati ve Not Available [facility] [address], [place], [address], 04/18/2024 15:01:48 Result Notes None recorded. 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 WINSOME COELHO MD [address] [place] [address], [address], [facility] 4 15:01:39 Posterior vitreous detachment 841250488 Active 2016 WINSOME COELHO MD [address] [place] [address], [address], [facility] 4 15:01:39 Hypermetrop ia 69768216 Completed 201602/27/2021 WINSOME COELHO MD [address] [place] [address], [address], [facility] 1 09:17:01 Myopia 91899492 Completed 201602/27/2021 WINSOME COELHO MD [address] [place] [address], [address], [facility] 1 09:17:05 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 WINSOME COELHO MD [address] [place] [address], [address], [facility] 4 15:01:39 Presbyopia 28296527 Active 2016 WINSOME COELHO MD [address] [place] [address] [place], [address], [facility] 4 15:01:39 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 Procedures Surgical History Date Name Laterality Status Provider Name and Address Organization Details Recorded Time 07/17/19 25 Nasolaryngoscopy completed KULDEEP MASON MD [address] [place], [address], [facility] 07/17/2024 12:24:06 07/12/19 24 Nasolaryngoscopy completed KULDEEP MASON MD [address] [place] [address], [address], [facility] 07/12/2023 12:48:24 04/05/20 23 Nasolaryngoscopy completed KULDEEP MASON MD [address] [place] [address], [address], [facility] 04/05/2023 15:18:43 04/05/20 23 Electromyography (EMG) with Nerve Conduction Study (NCV) completed Radha Paige (Cam[facility]) [facility] 04/05/2023 13:47:14 07/13/19 23 Nasolaryngoscopy completed Cara Gardiner [facility] 07/13/2022 13:26:49 11/18/19 22 Audiogram completed HERRERA ALLEN [address] [place] [address], [address], [facility] 11/17/2021 10:35:20 08/15/19 22 CONTACT LASER VAPORIZATION, WITH TRANSURETHRAL RESECTION OF PROSTATE (SURG) completed Jerrell Blunt [facility] 08/18/2021 14:04:21 07/14/19 22 Nasolaryngoscopy completed KULDEEP MASON MD [address] [place] [address], [address], [facility] 07/14/2021 16:21:25 01/22/20 21 Cataract Extraction - Kielar completed WINSOME COELHO MD [address] [place] [address], [address], [facility] 02/03/2021 08:02:14 01/22/20 21 Cataract (right) removal with iol completed Alison Fang [facility] 01/22/2021 14:38:12 11/05/19 21 Axial Length, A-Scan completed WINSOME COELHO MD [address] [place] [address], [address], [facility] 11/04/2020 14:24:25 07/24/19 21 Laryngoscopy Flex completed KULDEEP MASON MD [facility] [place], [address], [facility] 07/23/2020 12:46:14 11/02/19 20 Refraction completed WINSOME COELHO MD [facility] [place], [address], [facility] 11/02/2019 14:17:57 09/25/19 20 Laryngoscopy Flex completed KULDEEP MASON MD [facility] [place], [address], [facility] 09/25/2019 10:52:40 06/13/19 20 Cataract (left) removal with iol completed Justyna Cardozo [facility] 06/14/2019 11:02:47 05/17/20 19 Axial Length, A-Scan completed WINSOME COELHO MD [facility] [place], [address], [facility] 05/17/2019 14:05:26 03/26/20 19 Laryngoscopy Flex completed KULDEEP MASON MD [facility] [place], [address], [facility] 03/26/2019 12:12:21 08/30/19 19 Laryngoscopy Flex completed KULDEEP MASON MD [facility] [place], [address], [facility] 08/29/2018 10:23:10 05/11/20 17 Refraction completed WINSOME COELHO MD [facility] [place], [address], [facility] 05/11/2017 13:58:46 06/30/19 17 Laryngoscopy Flex completed KULDEEP MASON MD [address] [place] [address], [address], [facility] 06/30/2016 14:17:06 Imaging Results None recorded. Procedure Notes None recorded. Medical Equipment None Reported. Allergies Allergen ID Allergen Name Allergen Category Reaction Reaction Severity Criticality Documentation Date Start Date Code Code System Note Provider Name and Address Organization Details Recorded Time 866700 Substance with sulfonami de structure and antibacte rial mechanism of action (substanc e) medicatio n Not available Not available Not available 07/05/20162012 57300 8003 SNOMED Comme nt: Creat ed By: Kip Flores eated Date: 013 3:10: 52 PM; Not Available [facility] 7 10:59:12 [id number] Levaquin medicatio n rash Not available Not available 01/17/2023 99644 2 [facility] 3 12:39:24 Medications Name Sig Start Date Stop Date Status Note LastModified by Organization Details LastModified Time Prescript ion - Clarifica tion active cataract surgery gtts OD Not Available Not Available Not Available Carafate 100 mg/mL oral suspensio n Take 10 mL 3 times a day by oral route. 12/06 completed Not Available Not Available Not Available Carafate 1 gram tablet Take 1 tablet 4 times a day by oral route before meals for 30 days. 12/06 completed Not Available Not Available Not Available ofloxacin 0.3 % eye drops INSTILL 1 DROP INTO THE RIGHT EYE FOUR TIMES PER DAY 11/01 completed Not Available Not Available Not Available ranitidin e 300 mg tablet TAKE 1 TABLET AT BEDTIME 08/11 completed Not Available Not Available Not Available famotidin e 40 mg tablet TAKE 1 TABLET DAILY AT BEDTIME 2024 active Not Available Not Available Not Avai lable ketorolac 0.5 % eye drops INSTILL 1 DROP INTO THE LEFT EYE 4 TIMES PER DAY 02/27 completed Not Available Not Available Not Available prednisol one acetate 1 % eye drops,marybeth pension 09/11 completed Not Available Not Available Not Available doxycycli ne monohydra te 100 mg capsule Take 1 capsule twice a day by oral route. 2023 active Not Available Not Available Not Avai lable pantopraz ole 40 mg tablet,de layed release Take 1 tablet every day by oral route. 01/17 completed Not Available Not Available Not Available esomepraz ole magnesium 40 mg capsule,d elayed release TAKE 1 CAPSULE DAILY 2024 active Not Available Not Available Not Avai lable ranitidin e 300 mg capsule Take 1 capsule every day by oral route. 05/11 completed Not Available Not Available Not Available lisinopri l 10 mg tablet TAKE 1 TABLET (10 MG) BY ORAL ROUTE ONCE DAILY active Not Available Not Available No t Available doxazosin 4 mg tablet TAKE 1 TABLET DAILY 2023 active Not Available Not Available Not Avai lable cefuroxim e axetil 500 mg tablet Take 1 tablet every 12 hours by oral route. 01/17 completed Not Available Not Available Not Available levofloxa quinn 500 mg tablet Take 1 tablet every day by oral route for 10 days. 01/17 completed Not Available Not Available Not Available fluticaso ne propionat e 50 mcg/actua tion nasal spray,marybeth pension USE 2 SPRAYS IN EACH NOSTRIL DAILY 2019 active Not Available Not Available Not Avai lable finasteri de 5 mg tablet TAKE 1 TABLET DAILY 2023 active Not Available Not Available Not Avai lable moxifloxa quinn 0.5 % eye drops INSTILL 1 DROP INTO THE LEFT EYE 4 TIMES PER DAY 02/27 completed Not Available Not Available Not Available omeprazol e 12/06 completed Not Available Not Available Not Available Golytely 236 gram-22.7 4 gram-6.74 gram-5.86 gram oral solution DIRECTED 01/17 completed Not Available Not Available Not Available Suprep Bowel Prep Kit 17.5 gram-3.13 gram-1.6 gram oral solution Take 177 mL by oral route as directed . 05/11 completed Not Available Not Available Not Available Suprep Bowel Prep Kit DIRECTED 08/11 completed Not Available Not Available Not Available Flonase Allergy Relief 12/06 completed Not Available Not Available Not Available Sutab 1.479-0.1 88-0.225 gram tablet TAKE BY ORAL ROUTE DIRECTED PER PACKAGE INSTRUCT IONS 01/17 completed SAMPLE KIT Not Available Not Available Not Available Vitals Date Recorded Body height Body mass index (BMI) Body weight Heart rate Systolic And Diastolic Provider Name and Address Organization Details Last Updated DateTime 07/12/2023 187.96 cm 20.5 kg/m2 91348.78 g 91 /min 145/72 mm[Hg] Constantine Tompkins [facility] 07/12/2023 12:14:38 Date Recorded Body height Body mass index (BMI) Body weight Heart rate Systolic And Diastolic Provider Name and Address Organization Details Last Updated DateTime 07/17/2024 187.96 cm 20.5 kg/m2 65224.78 g 88 /min 210/91 mm[Hg] [facility] 07/17/2024 11:39:43 Date Recorded Body height Provider Name an d Address Organization Details Last Updated DateTime 12/01/2023 187.96 cm Kuldeep Barrera [facility] 12/01/2023 13:18:15 Date Recorded Body height Body mass index (BMI) Body weight Provider Name and Address Organization Details Last Updated DateTime 04/18/2024 187.96 cm 20.5 kg/m2 00362.78 g Edgar Schmitt [facility] 04/18/2024 15:24:30 Social History Question Answer Notes LastModified by [email or web address] ion Details LastModified Time Tobacco Smoking Status [email or web address] 12/06/2018 13:40:24 Which Illicit Or Recreational Drugs Have You Used? Denies Information not available 12/06/2018 When Did You Quit Smoking? 16+yearssinc elastcigaret te Information not available 12/06/2018 Marital Status Informatio n not available 12/06/2018 What Was The Date Of Your Most Recent Tobacco Screening? 04/18/2024 Information not available 04/18/2024 Has Tobacco Cessation Counseling Been Provided? No [email or web address] Information not available 08/17/2021 Have You Recently Traveled Abroad? No [email or web address] Information not available 08/17/2021 Sex: Unknown Functional Status Question Answer Note LastModified by Organizat ion Details LastModified Time Do you use any illicit or recreational drugs? No [email or web address] Information not available 08/17/2021 Do you or have you ever used any other forms of tobacco or nicotine? No [email or web address] Information not available 08/17/2021 What is your level of alcohol consumption? None Information not available 12/06/2018 What is your occupation? retired Information not available 12/06/2018 Mental Status None recorded. Family History Relationship Description Onset Age of this Age Resolved Age Notes LastModified by Organization Details LastModified Time Father No current problems or disability [email or web address] Not available 06/30 13:56:39 Father Lazy eye [email or web address] Not availab le 05/11/2017 13:11:02 Father Hearing loss Not availa ble 12/06/2018 13:40:11 Mother No current problems or disability bcable Not available 06/30 13:56:39 Mother Hearing loss Not availa ble 12/06/2018 13:40:11 Unspecified Relation Acid reflux Not available 12/06 13:39:34 Sister Family history of malignant neoplasm breast Not available 2018 13:39:50 Sister Hearing loss Not availa ble 12/06/2018 13:40:11 Medical History Condition Response Allergies/Hayfever Y Anxiety Disorder Y Blood Clot Y Acid Reflux (GERD) Y Cancer Y Hypertension Y Cataract N GI Problems Y Glasses/Contacts Y Past Encounters Encounter ID Performer Location Encounter Start Date Encounter Closed Date Diagnosis/Indication Diagnosis SNOMED-CT Code Diagnosis ICD10 Code Diagnosis Note [id number] KULDEEP MASON MD [facility] [address] [place] [address] 06/30/2016 13:22:35 06/30/2016 14:36:09 Globus sensation 26093776 F45.8 Gastroesop hageal reflux disease without esophagitis 530885469 K21.9 continue Nexium. Will add Zantac as well. 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 He is not interested in surgical interventi on. Continue Flonase as well. Follow-up 1 year. [id number] ELISE FAIRCHILD MD SURGERY SCHEDULE [address] [place] [address] 08/09/2016 10:06:38 08/09/2016 10:20:18 [id number] WINSOME COELHO MD OPHTHALMO [address] [place] [address] 05/11/2017 12:34:31 05/11/2017 15:19:41 Combined form of senile cataract 59814231 H25.813 Monocular esotropia 5455 000 H50.011 Posterior vitreous detachment 097442412 H43.811 Hypermetropia 08762457 H 52.01 Myopia 17005806 H52.12 Regular astigmatism 6890 5002 H52.221 Presbyopia 25103244 H52. 4 [id number] KULDEEP MASON MD ENT [facility] [address] [place] [address] 1 06/28/2017 13:26:39 06/28/2017 15:15:23 Globus sensation 23995333 F45.8 Gastroesop hageal reflux disease without esophagitis 834999398 K21.9 overall much improved over the last few months. Continue current therapy with Nexium and Zantac. Follow-up 1 year [id number] HERRERA ALLEN ENT [facility] [address] [place] [address] 1 10/06/2017 14:41:57 10/07/2017 11:56:09 Sensorineural hearing loss of bilateral ears 732953711 H90.3 [id number] HERRERA ALLEN ENT [facility] [address] [place] [address] 1 10/28/2017 10:15:37 10/28/2017 14:47:36 [id number] HERRERA ALLEN ENT [facility] [address] [place] [address] 1 11/11/2017 12:35:46 11/11/2017 19:42:47 [id number] HERRERA ALLEN ENT [facility] [address] [place] [address] 1 11/15/2017 09:12:25 11/15/2017 16:57:45 [id number] HERRERA ALLEN ENT [facility] [address] [place] [address] 1 11/29/2017 10:35:55 11/29/2017 17:46:49 [id number] HERRERA ALLEN ENT [facility] [address] [place] [address] 1 12/14/2017 15:01:38 12/14/2017 18:08:32 [id number] MAHENDRA MISTRY AUD ENT [facility] [address] [place] [address] 1 01/04/2018 14:58:24 01/04/2018 18:11:42 [id number] MAHENDRA MISTRY AUD ENT [facility] [address] [place] [address] 1 01/25/2018 12:39:28 01/25/2018 18:22:35 [id number] MAHENDRA MISTRY AUD ENT [facility] [address] [place] [address] 1 02/08/2018 12:43:41 02/08/2018 13:26:25 [id number] MAHENDRA MISTRY AUD ENT [facility] [address] [place] [address] 1 02/28/2018 12:58:07 02/28/2018 18:05:27 [id number] WINSOME COELHO MD OPHTHALMO [address] 5 05/11/2018 12:23:57 05/12/2018 15:14:46 Combined form of senile cataract 63162807 H25.813 slow progressio n Posterior vitreous detachment 053243899 H43.811 Hypermetropia 80641430 H 52.01 Myopia 92237209 H52.12 Monocular esotropia 5455 000 H50.011 Regular astigmatism 6890 5002 H52.221 Presbyopia 99557945 H52. 4 [id number] KULDEEP MASON MD [place] [address] 1 06/28/2018 12:27:13 06/28/2018 13:40:40 Globus sensation 04314616 F45.8 remains improved with treatment for reflux with Nexium and Zantac. Continue Gastroesop hageal reflux disease without esophagitis 774304272 K21.9 [id number] KULDEEP MASON MD ENT [place] [address] 1 08/29/2018 08:57:53 08/29/2018 10:34:49 Gastroesophageal reflux disease without esophagitis 751091946 K21.9 on esomeprazo le and zantac and having more symptoms lately. recommend wedge pillow, barium swallow and adding carafate. f/u 1 mo. if not improved consult gi [id number] KULDEEP MASON MD ENT SB [address] [place] [address] 1 09/25/2018 08:59:57 09/25/2018 10:14:05 Gastroesophageal reflux disease without esophagitis 414085660 K21.9 on esomeprazo le and zantac and still symptomati c. Try Carafate but could not tolerate because of a cough. Barium swallow ordered and reviewed and shows significan t GERD. Consult Dr. Fairchild to discuss any further treatment options or even potentiall y a Smiley [id number] ELISE FAIRCHILD MD GASTRO SB [address] [place] [address], [address] [place] [address] 1 12/06/2018 13:24:10 12/07/2018 10:36:07 Gastroesophageal reflux disease without esophagitis 211370298 K21.9 Continue nexium/ran itidine. Egd. Cough 62940768 R05 History of polyp of colon 702814077 Z86.010 Repeat 2020. [id number] ELISE FAIRCHILD MD SURGERY SCHEDULE [address] [place] [address] 1 12/21/2018 08:22:41 12/21/2018 08:26:42 Gastroesophageal reflux disease without esophagitis 367247959 K21.9 [id number] MAHENDRA HERRERA MISTRY ENT SB [address] [place] [address] 1 01/02/2019 10:55:46 01/02/2019 11:37:03 [id number] KULDEEP MASON MD ENT SB [address] [place] [address] 1 03/26/2019 09:04:45 03/27/2019 16:21:33 Gastroesophageal reflux disease without esophagitis 982603122 K21.9 had egd that was normal. laryngosco py today shows reflux laryngitis . change back to nexium and add pepcid. f/u 6mo [id number] WINSOME COELHO MD OPHTHALMO LOGY [address] [place] [address] 05/17/2019 12:29:27 05/18/2019 08:31:45 Combined form of senile cataract 21699370 H25.813 slow progressio n Monocular esotropia 5455 000 H50.011 Posterior vitreous detachment 366105441 H43.811 Myopia 31945078 H52.12 Regular astigmatism 6890 5002 H52.221 Hypermetropia 94579484 H 52.01 [id number] WINSOME COELHO MD SURGERY SCHEDULE [address] [place] [address] 06/13/2019 09:00:06 06/13/2019 09:01:34 [id number] WINSOME COELHO MD OPHTHALMO [address]Y [address] [place] [address] 5 06/14/2019 10:46:25 06/15/2019 09:40:58 Pseudophakia 39100347 Z96.1 pod#1 os-stable [id number] WINSOME COELHO MD OPHTHALMO LOGY [address] ,[address] [place] [address] 5 06/21/2019 08:00:28 06/21/2019 12:00:28 Pseudophakia 14970367 Z96.1 po 1 wk os-stable [id number] ELISE FAIRCHILD MD SURGERY SCHEDULE [address] [place] [address] 1 07/31/2019 09:43:21 07/31/2019 09:44:11 [id number] WINSOME COELHO MD OPHTHALMO LOGY [address] [place] [address] 5 08/02/2019 13:17:08 08/02/2019 15:44:00 Pseudophakia 94935955 Z96.1 po 1 month os-stable Posterior vitreous detachment 194073648 H43.193 [id number] KULDEEP MASON MD ENT SB [address] [place], [place] [address] 09/25/2019 09:02:59 09/26/2019 11:51:21 Gastroesophageal reflux disease without esophagitis 846093639 K21.9 laryngosco py today shows reflux laryngitis . changes otherwise. Fairly mild. No worrisome pathology present. Continue Nexium and Pepcid . f/u 1 year Sensorineu ral hearing loss of bilateral ears 780392790 H90.3 stable. Continue hearing aids [id number] WINSOME COELHO MD OPHTHALMO LOGAdelfo [address] [place] [address] 11/02/2019 13:27:18 11/02/2019 16:04:12 Combined form of senile cataract 93988335 H25.811 slow progressio n Hypermetropia 93438345 H 52.01 Posterior vitreous detachment 110059027 H43.813 Presbyopia 68043946 H52. 4 [id number] ELISE FAIRCHILD MD SURGERY SCHEDULE [address] [place] [address] 1 01/30/2020 08:46:42 01/30/2020 14:26:50 [id number] WINSOME COELHO MD OPHTHALMO ABHIJEET [address] [place] [address] 5 05/06/2020 14:07:34 05/06/2020 16:03:11 Combined form of senile cataract 48985728 H25.811 slow progressio n Monocular esotropia 5455 000 H50.011 Posterior vitreous detachment 493029207 H43.813 Presbyopia 54029144 H52. 4 [id number] [place] [address] [place] [address] 1 07/23/2020 09:29:51 07/24/2020 07:01:45 Gastroesophageal reflux disease without esophagitis 140260348 K21.9 Continues to be mildly symptomati c while on Nexium and Pepcid. He was concerned about malignancy . Repeated nasal laryngosco py today. No worrisome features present. Follow-up 1 year [id number] POWER WOLF MD FERNANDO [facility] [address] [place] [address] 07/28/2020 13:31:19 07/28/2020 14:31:21 Benign prostatic hyperplasia with outflow obstruction 808653435 N40.1 continue finasterid e and doxazosin. He also occasional ly has episodes of chronic prostatiti s and requests a refill of Levaquin [id number] WINSOME COELHO MD OPHTHALMO LOGAdelfo [address] [place] [address] 5 11/04/2020 13:10:02 11/04/2020 14:29:50 Combined form of senile cataract 39953673 H25.811 slow progressio n Secondary cataract 19353 4007 H26.492 mild Posterior vitreous detachment 280236703 H43.813 Monocular esotropia 5455 000 H50.843 [id number] WINSOME COELHO MD SURGERY SCHEDULE [address] [place] [address] 1 01/21/2021 09:18:41 01/21/2021 09:19:11 Combined form of senile cataract 01968800 H25.811 slow progressio n [id number] WINSOME COELHO MD OPHTHALMO LOGY [address] ,[address] [place] [address] 5 01/22/2021 14:08:44 01/22/2021 14:58:41 Pseudophakia 72857856 Z96.1 pod#1 od-stable [id number] WINSOME COELHO MD OPHTHALMO [address] ,[address] [place] [address] 5 02/27/2021 08:31:29 02/27/2021 09:41:27 Pseudophakia 08039959 Z96.1 po 1 month od-stable Monocular esotropia 5455 000 H50.011 Secondary cataract 42769 4007 H26.492 mild Presbyopia 81910620 H52. 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 Nasolaryng oscopy was normal. Continue pharmacoth erapy and reflux diet as his symptoms are overall better than prior to medical therapy. f/u 1 year. [id number] POWER WOLF MD CUA [facility] [address] [place] [address] 08/11/2021 13:02:29 08/11/2021 14:05:21 Retention of urine 355746762 R33.9 Benign pro static hyperplasia with outflow obstruction 090372695 N40.1 we will arrange for greenlight laser vaporizati on of the prostate. 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 4 Posterior vitreous detachment 228851009 H43.765 [id number] POWER WOLF MD [facility] [address] [address] 09/15/2021 14:14:45 09/15/2021 14:57:15 Urinary tract infectious disease 80530407 N39.0 We will culture his urine Benign pro static hyperplasia with outflow obstruction 119456533 N40.1 Follow-up 3 months [id number] HERRERA ALLEN ENT [address] [place] [address] 11/17/2021 09:59:55 11/17/2021 11:22:19 Sensorineural hearing loss of bilateral ears 146124103 H90.3 [id number] HERRERA ALLEN ENT [address] [place] [address] 1 11/24/2021 14:07:23 11/24/2021 14:16:32 [id number] [place]HENDR[place], [place] [address] [place] [address] 1 01/18/2022 13:05:12 01/18/2022 13:40:29 [id number] [place]HENDR[place] [address] [place] [address] 1 01/28/2022 12:16:23 01/28/2022 13:01:19 [id number] [place] [address] [place] [address] 1 02/08/2022 14:40:23 02/08/2022 14:55:42 [id number] POWER WOLF MD [facility] [address] [place] [address] 0 02/17/2022 12:52:47 02/19/2022 09:53:11 Benign prostatic hyperplasia 867899397 N40.0 doing well, follow-up 1 year [id number] JESSE MANCERA MD OPHTHALMO LOGY [address] 5 05/10/2022 10:53:42 05/10/2022 11:54:14 Acute atopic conjunctivitis 52361222 H10.12 - discussed as likely cause for current symptoms- start OTC antihistam ine drop BID OS- continue QID ATs- consider short steroid drop course if no improvemen t RTC as scheduled with Dr. Coelho, sooner as needed [id number] [place] [address] [place] [address] 1 07/13/2022 12:34:40 07/13/2022 14:24:14 Gastroesophageal reflux disease without esophagitis 277429153 K21.9 Still slightly symptomati c despite nexium and pepcid. Endoscopy performed, reflux findings but overall improved. Continue pharmacoth erapy and reflux diet as his symptoms are overall better than prior to medical therapy. F/u 1 year Throat irritation 926029 007 R07.0 Primary symptom. Left side. 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 4 [id number] WINSOME SAM MD NEUROLOGY SB CLOSED [address] [place] [address] 1 01/17/2023 12:31:59 01/18/2023 04:11:53 Neuropathy 319228543 G62.9 [id number] POWER WOLF MD [facility] S [address] [place] [address] RD,[address] [place] [address] 02/16/2023 15:21:32 02/16/2023 16:54:48 Benign prostatic hyperplasia 369796683 N40.0 doing well, follow-up 1 year [id number] WINSOME SAM MD NEUROLOGY SB CLOSED [address] [place] [address] 1 04/05/2023 12:08:00 04/06/2023 04:20:06 Paresthesia 94922366 R20.2 [id number] KULDEEP MASON MD ENT SB [address] [place] [address] 1 04/05/2023 14:12:38 04/05/2023 17:33:55 Gastroesophageal reflux disease without esophagitis 484458773 K21.9 Still symptomati c despite nexium and pepcid. Tried gaviscon in the past. Endoscopy performed, reflux findings. No tumor. He was worried about cancer as he had an abnormal lab result recently. F/u as scheduled 07/12/23 Throat irritation 044336 007 R07.0 Primary symptom. Left side. Secondary to GERD [id number] KULDEEP MASON MD ENT SB [address] [place] [address] 1 07/12/2023 11:09:13 07/12/2023 13:08:36 Gastroesophageal reflux disease without esophagitis 748622339 K21.9 Still symptomati c despite nexium and pepcid. Symptoms are stable. No other pathology present. Continue Nexium and Pepcid Throat irritation 933210 007 R07.0 Primary symptom. Left side. 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 4 [id number] POWER WOLF MD FERNANDO [facility] S [address] [place] [address] RD,[address] [place] [address] 04/18/2024 14:02:46 04/18/2024 16:17:31 Benign prostatic hyperplasia with outflow obstruction 390689466 N40.1 Follow-up 3 months Chronic prostatitis 1990 5009 N41.1 [id number] KULDEEP MASON MD ENT [address] [place] [address] 07/17/2024 10:36:16 07/18/2024 08:12:04 Gastroesophageal reflux disease without esophagitis 432736955 K21.9 Still symptomati c despite nexium and pepcid. Symptoms are stable. No other pathology present. Continue Nexium and Pepcid. Add reflux Gourmet. Follow-up 1 year Throat irritation 909679 007 R07.0 Primary symptom. Left side. Secondary to GERD Health Concerns Section Related Observation LastModified by Organization Detai ls LastModified Time None Recorded Concern Status LastModified by Organization Details LastModified Time None Recorded Advance Directives Directive None Recorded Payers Insurance Date Sequence Insurance Name Policy Number Policy Daigle Covered Member ID Daigle Member ID Guarantor Name 07/14/2024 1 [facility] (MEDICARE REPLACEMENT/A DVANTAGE - PPO) [id number] Alan Renner [id number] Alan Renner Notes Date Note Type Note Provider Name and Address Organization Details Recorded Time 07/12/2023 text/html Chief Complaint: GERDTiming: YearsDuration: IntermittentLocati on:Severity: still slightly symptomaticQuality :Context:Modifying Factors: Nexium and pepcid continue to help, follows a reflux dietAssoc signs and symptoms: No hoarseness, no dysphagia, has left sided sore throat, continues to have reflux that is worse at hs. KULDEEP MASON MD [address] [place] [address], [phone] 07/12/2023 12:49:27 10/26/2023 text/html repair [facility] MAHENDRA MISTRY, [address], [address], [facility] 10/26/2023 11:29:19 04/18/2024 text/html Patient is here in follow-up last seen a year ago. He has obstructive urination symptoms and continues take doxazosin 4 mg daily as well as finasteride 5 mg daily. He is due for refill. He also has previous history of chronic prostatitis and keeps doxycycline on hand for flareups. His PSA this past summer was 0.4. He remains active. He went elk hunting earlier this fall and did kill a large elk. He is satisfied from a urologic standpoint POWER WOLF MD [address] [place] [address], [phone], [facility] 04/22/2024 16:19:16 07/17/2024 text/html Chief Complaint: GERDTiming: YearsDuration: IntermittentLocati on:Severity: mildly symptomaticQuality :Context:Modifying Factors: Nexium and pepcidAssoc signs and symptoms: occasional mild throat irritation, cough, throat clearing, no dysphagia, no odynophagia, no heartburn symptoms, no hoarseness, no hemoptysis, no foreign body sensation KULDEEP MASON MD [address] [place] [address], [phone] 07/17/2024 12:24:50
--- NOTE | 2024-12-04 09:30 | CA_ITS ---
FINAL REPORT CLINICAL HISTORY: HTN FINDINGS: RIGHT CAROTID: CCA PSV -118 cm/sec ICA PSV -155 cm/sec ICA/CCA PSV ratio -1.8. Comments: Moderate plaque disease is noted. LEFTCAROTID: CCA PSV -106. cm/sec ICA PSV -192. cm/sec ICA/CCA PSV ratio -2.0. Comments: Moderate plaque disease is noted. Antegrade flow is seen within the vertebral arteries. IMPRESSION: Carotid stenosis classified as 50 to 69% on the left. CTA may be considered or 12-month carotid duplex follow-up. Carotid stenosis classified less than 50% on the right but likely approaching 50%. Reviewed, Interpreted and Dictated by Suleman Dupont MD Transcribed by Halie Escalante Authenticated and [facility]
--- NOTE | 2024-12-04 10:15 | US_ITS ---
FINAL REPORT CLINICAL HISTORY: Claudication in both legs vs neuropathy, htn FINDINGS: LOWER EXTREMITY SEGMENTAL PRESSURE MEASUREMENTS Pressure indices are as follows: RIGHT LOWER EXTREMITY: Lower thigh: 1.0 Calf: 1.1 Ankle, posterior tibial artery: 1.0 Ankle, dorsalis pedis: 1.0 Toe: 0.78 Comments: LEFT LOWER EXTREMITY: Lower thigh: 1.0 Calf: 0.94 Ankle, posterior tibial artery: 1.0 Ankle, dorsalis pedis: 1.0 Toe: 0.82 Comments: 1.0 IMPRESSION: No evidence of significant PVD. Reviewed, Interpreted and Dictated by Suleman Dupont MD Transcribed by Halie Escalante Authenticated and [facility]
== END 2024-12-04 23:59 | disposition home or self-care (01) ==
LOC: RT 09:11
PROVIDERS: PCP Internal Medicine; Visit Provider Internal Medicine
DX: I65.23 Occlusion and stenosis of bilateral carotid arteries (principal); I73.9 Peripheral vascular disease, unspecified; I10 Essential (primary) hypertension
CPT/HCPCS: 93880; 93923

== ENCOUNTER 2024-12-10 16:15 | Outpatient (CLI) | payer MEDICARE, SELFPAY ==
--- NOTE | 2024-12-10 16:30 | CT_ITS ---
PROCEDURE INFORMATION: Exam: CT Abdomen And Pelvis Without Contrast Exam date and time: 12/10/2024 4:37 PM Age: 89 years old Clinical indication: Abdominal pain; Additional info: Right lower quadrant pain TECHNIQUE: Imaging protocol: Computed tomography of the abdomen and pelvis without contrast. Radiation optimization: All CT scans at this facility use at least one of these dose optimization techniques: automated exposure control; mA and/or kV adjustment per patient size (includes targeted exams where dose is matched to clinical indication); or iterative reconstruction. COMPARISON: CT ABDOMEN PELVIS WO CON 12/29/2023 8:42 AM FINDINGS: Heart: Aortic valve calcifications. Coronary arteries: Coronary atherosclerosis. Liver: Normal. No mass. Gallbladder and biliary ducts: Multiple gallstones. No definite wall thickening or pericholecystic fluid the gallbladder appears contracted. Pancreas: Normal. No ductal dilation. Spleen: Normal. No splenomegaly. Adrenal glands: Normal. No mass. Kidneys and ureters: Normal. No hydronephrosis. Stomach and bowel: Unremarkable. No obstruction. No mucosal thickening. Appendix: No evidence of appendicitis. Intraperitoneal space: Unremarkable. No free air. No significant fluid collection. Vasculature: Unremarkable. No abdominal aortic aneurysm. Lymph nodes: Unremarkable. No enlarged lymph nodes. Urinary bladder: The bladder is moderately distended. Reproductive: The prostate is prominent. Bones/joints: Unremarkable. No acute fracture. Soft tissues: There is a stable appearing 2.5 cm low-density structure seen inferior to the cecum and adjacent to the right inguinal canal, unchanged from multiple prior studies dating back to 12/03/2023. IMPRESSION: 1. Cholelithiasis in a contracted gallbladder, no definite evidence of acute cholecystitis. 2. Stable 2.5 cm low-density structure inferior to the cecum, seen on multiple prior studies indeterminate in origin. 3. Coronary calcifications. 4. Dense aortic valve calcifications, this can be seen with aortic stenosis, consider echocardiography if not recently performed.
[2024-12-10 16:31] LABS: Hematocrit 33.6 % (42.0-52.0); Hemoglobin 11.5 g/dL (14.1-18.0); Immature Granulocytes % 0.1 %; Mean Corpuscular HGB Conc 34.2 g/dL (31.8-35.4); Mean Corpuscular Hemoglobin 34.3 pg (27.0-31.2); Mean Corpuscular Volume 100.3 fl (80-94); Nucleated Red Blood Cells % 0 %; Platelet Count 186 K/mm3 (142-424); Red Blood Count 3.35 M/mm3 (4.60-6.20); Red Cell Distribution Width-SD 47.0 fL; White Blood Count 7.2 K/mm3 (4.8-10.8)
[2024-12-10 17:24] LABS: Albumin Level 5.1 g/dl (3.5-5.0); Chloride 101 mmol/L (98-107); Sodium 134 mmol/L (136-145)
[2024-12-10 17:25] LABS: Potassium 5.5 mmoL/L (3.5-5.1)
[2024-12-10 17:27] LABS: Alanine Aminotransferase 13 U/L (12-78); Albumin/Globulin Ratio 1.8 (1.1-1.8); Alkaline Phosphatase 88 U/L (38-126); Anion Gap 16.5 mEq/L (5-15); Aspartate Amino Transferase 22 U/L (17-59); Bilirubin,Total 0.9 mg/dl (0.2-1.3); Blood Urea Nitrogen 39 mg/dl (9-20); Carbon Dioxide 22 mmol/L (22.0-30.0); Creatinine,Serum 1.80 mg/dl (0.66-1.25); Estimated Glomerular Filt Rate 36 ml/min (>60); GFR (African American) 43 ML/MIN (>60); Globulin 2.8 g/dL (1.3-3.2); Total Protein,Serum 7.9 g/dl (6.3-8.2)
[2024-12-10 17:28] LABS: Calcium 10.1 mg/dl (8.4-10.2); Cholesterol 187 mg/dl (140-200); Glucose 104 mg/dl (74-100); HDL Cholesterol 52 mg/dl (40-60); Triglycerides 54 mg/dl (30-150)
[2024-12-10 17:59] LABS: Thyroid Stimulating Hormone 2.80 uIU/mL (0.465-4.68)
[2024-12-10 18:54] LABS: Folate 9.51 ng/mL
[2024-12-10 19:04] LABS: Vitamin B12 261 pg/mL (239-931)
--- OUTSIDE RECORDS SUMMARY | 2024-12-11 12:02 | XMS_ITS | Clinical Summary ---
Author Organization [facility] Address [address] [place] [address] Care Team Providers Care Cream Gatherer Name Role Phone Tim Adams MD Primary Care Provider [phone] Kwadwo Martinez MD Unavailable [phone] Gary Jose MD Unavailable [phone] Devin Fairchild MD Unavailable Kwadwo Coelho MD Unavailable [phone] Fredo Briscoe MD Unavailable [phone] Allergies Active Allergy Reactions Criticality Noted Date [...] or (1 - 1-dose 75+ series) 01/30/2011 [id number] Vaccine ( season) 2024 02/16/2023, 02/03/2022, 08/20/2021, [...] patient's age to complete this topic Insurance [facility] MEDICARE Care Teams Cream Gatherer Relationship Specialty Start Date End Date Tim Adams MD [address] [place] [address] PCP - General 10/03/20 Kwadwo Martinez MD [address] [place] [address] Referring Physician Neurology 04/28/23 Gary Jose MD [address] [place] [address] Otolaryngology 05/02/23 Devin Fairchild MD [address] [place], [place] [id number] 05/02/23 Kwadwo Coelho MD [address] [place], [place] [id number] 05/02/23 Fredo Briscoe MD [address] [place] [address] 05/02/23
== END 2024-12-10 23:59 | disposition home or self-care (01) ==
LOC: LAB.DROPOF 12-11 12:01
PROVIDERS: PCP Internal Medicine; Visit Provider Internal Medicine
DX: K80.20 Calculus of gallbladder without cholecystitis without obstruction (principal); I25.10 Atherosclerotic heart disease of native coronary artery without angina pectoris; I35.0 Nonrheumatic aortic (valve) stenosis; I35.8 Other nonrheumatic aortic valve disorders; R93.3 Abnormal findings on diagnostic imaging of other parts of digestive tract; I10 Essential (primary) hypertension; G60.9 Hereditary and idiopathic neuropathy, unspecified; E78.5 Hyperlipidemia, unspecified; Z12.5 Encounter for screening for malignant neoplasm of prostate
CPT/HCPCS: 74176; 80053; 80061; 82607; 82746; 84443; 85025; G0103

== ENCOUNTER 2024-12-31 13:45 | Outpatient (CLI) | payer MEDICARE, SELFPAY ==
[2024-12-31 16:10] LABS: Anion Gap 15.4 mEq/L (5-15); Blood Urea Nitrogen 24 mg/dl (9-20); Calcium 9.3 mg/dl (8.4-10.2); Carbon Dioxide 22 mmol/L (22.0-30.0); Chloride 106 mmol/L (98-107); Creatinine,Serum 1.40 mg/dl (0.66-1.25); Estimated Glomerular Filt Rate 48 ml/min (>60); GFR (African American) 58 ML/MIN (>60); Glucose 97 mg/dl (74-100); Potassium 5.4 mmoL/L (3.5-5.1); Sodium 138 mmol/L (136-145)
--- OUTSIDE RECORDS SUMMARY | 2025-01-01 14:12 | XMS_ITS | Clinical Summary ---
Author Organization [facility] Address [address] [place] [address] Care Team Providers Care High School Coordinator Name Role Phone Tim Adams MD Primary Care Provider [phone] Kwadwo [place] MD Unavailable [phone] Gary Jose MD Unavailable Devin Fairchild MD Unavailable [phone] Kwadwo Coelho MD Unavailable [phone] Fredo Briscoe MD Unavailable [phone] Allergies Active Allergy Reactions Criticality Noted Date [...] Screening 1936 [facility]-Medicare Annual Wellness (AWV) 1936 [facility]-/Child/Adol SDOH Screenings 1936 [facility]- SDOH Screenings 01/30/1954 [facility]-Adult SDOH Screenings 01/30/1954 [facility]-Pneumococcal Vaccine: 50+ Years (1 of 2 - PCV) 01/30/1955 [facility]-Zoster Vaccines (1 of 2) 01/30/1955 [facility]-RSV Vaccine: 60+ Years or (1 - 1-dose 75+ series) 01/30/2011 [id number] Vaccine ( season) 2024 02/16/2023, 02/03/2022, 08/20/2021, [...] patient's age to complete this topic Insurance [facility] MEDICARE Care Teams High School Coordinator Relationship Specialty Start Date End Date Tim Adams MD [address] [place] [address] PCP - General 10/03/20 Kwadwo Martinez MD [address] [place] [address] Referring Physician Neurology 04/28/23 Gary Jose MD [address] [place] [address] Otolaryngology 05/02/23 Devin Fairchild MD [address] [place], [place] [id number] 05/02/23 Kwadwo Coelho MD [address] [place], [place] [id number] 05/02/23 Fredo Briscoe MD [address] [place] [address] 05/02/23
== END 2024-12-31 23:59 | disposition home or self-care (01) ==
LOC: LAB.DROPOF 01-01 14:06
PROVIDERS: PCP Internal Medicine; Visit Provider Internal Medicine
DX: I95.1 Orthostatic hypotension (principal); R79.89 Other specified abnormal findings of blood chemistry; I10 Essential (primary) hypertension
CPT/HCPCS: 80048

== ENCOUNTER 2025-04-01 16:24 | Outpatient (CLI) | payer MEDICARE, SELFPAY ==
[2025-04-01 20:02] LABS: Anion Gap 14.7 mEq/L (5-15); Blood Urea Nitrogen 20 mg/dl (9-20); Calcium 9.6 mg/dl (8.4-10.2); Carbon Dioxide 24 mmol/L (22.0-30.0); Chloride 101 mmol/L (98-107); Creatinine,Serum 1.30 mg/dl (0.66-1.25); Estimated Glomerular Filt Rate 52 ml/min (>60); GFR (African American) 63 ML/MIN (>60); Glucose 88 mg/dl (74-100); Potassium 4.7 mmoL/L (3.5-5.1); Sodium 135 mmol/L (136-145)
--- OUTSIDE RECORDS SUMMARY | 2025-04-02 16:27 | XMS_ITS | Clinical Summary ---
Author Organization [facility] Address [address] [place] [address] Care Team Providers Care Dressmaker Or Tailor Name Role Phone Tim Adams MD Primary Care Provider Kwadwo Martinez MD Unavailable [phone] Gary Jose MD Unavailable [phone] Devin Fairchild MD Unavailable Kwadwo Coelho MD Unavailable [phone] Fredo Briscoe MD Unavailable [phone] Allergies Active Allergy Reactions Criticality Noted Date [...] or (1 - 1-dose 75+ series) 01/30/2011 [id number]-52 Vaccine (2024- season) 2025 02/16/2023, 02/03/2022, 08/20/2021, Additional history exists [facility]-Influenza [...] patient's age to complete this topic Insurance [facility] MEDICARE Care Teams Dressmaker Or Tailor Relationship Specialty Start Date End Date Tim Adams MD [address] [place] [address] PCP - General 10/03/20 Kwadwo Martinez MD [address] [place] [address] Referring Physician Neurology 04/28/23 Gary Jose MD [address] [place] [address] Otolaryngology 05/02/23 Devin Fairchild MD [address] [place], [place] [id number] 05/02/23 Kwadwo Coelho MD [address] [place], [place] [address] 05/02/23 Fredo Briscoe MD [address] [place] [address] 05/02/23
== END 2025-04-01 23:59 | disposition home or self-care (01) ==
LOC: LAB.DROPOF 04-02 16:24
PROVIDERS: PCP Internal Medicine; Visit Provider Internal Medicine
DX: R79.89 Other specified abnormal findings of blood chemistry (principal); I10 Essential (primary) hypertension
CPT/HCPCS: 80048